=== PATIENT | female | born 1990 | race Caucasian/White ===

== ENCOUNTER 2024-10-11 02:45 | Observation (INO) | payer OTHER ==
--- OUTSIDE RECORDS SUMMARY | 2024-10-11 02:50 | XMS REPORT | Continuity of Care Document ---
Author Name Unknown Address [address] [facility] [address] thconnect Address [address] [facility] 1 [address] [place] [address] Care Team Providers Care Facilities Assistant Name Role Phone PCP, PATIENT DOES NOT HAVE A Primary Care Physic ray Unavailable LAYNE TENA Attending Clinician LAYNE Abbott Attending Clinician Ganesh Almanzar Attending Clinician Unavailab SUMEET [place] Attending Clinician UnavailSUMEET Noonan Attending Clinician Unavailab Gastelum, [facility] Main Attending Clinician Unavailabl e Doctor Unassigned, [place] Attending Clinician U navailable Fontanilla III, REGIONAL PLANNER, R Attending Clinician [phone] Isa OCHOA, Edgardo Freitas Attending Clinician [phone] Lab, Ang - Db Attending Clinician Unavailable INDER FELIZ Attending Clinician Unav ailjuan Ultrasound, Beau-Mfm Attending Clinician Unavailzena Cam MD, Inder Attending Clinician + MAT LOMAX Attending Clinician Unavailable Sharon Falk Attending Clinician Unavailable LAYNE TENA Admitting Clinician Ganesh Almanzar Admitting Clinician UnavailMAT Benjamin Admitting Clinician Unavailable Allegra Cazares Admitting Clinician Unavailable Sharon Falk Admitting Clinician Unavailable Payers Payer Name Policy Type Policy Number Effective Date Expirati on Date Source [facility] [id number] 2023 00:00:00 [id number] 1958 00:00:00 Problems Condition Name Condition Details Condition Category Status Onset Date Resolution Date Last Treatment Date Treating Clinician Comments Source Sterilizat ion Sterilizat ion Disease Active 2022-08 2-05 00:00: 00 [facility] Obesity (BMI 30-39.9) Obesity (BMI 30-39.9) Disease Active 2022-08 0-26 00:00: 00 [facility] 39 weeks gestation of 39 weeks gestation of Disease Active 2022-08 0-26 00:00: 00 [facility] Encounter for elective induction of labor Encounter for elective induction of labor Disease Active 8-11 00:00: 00 [facility] High-risk in third trimester High-risk in third trimester Disease Active 8-11 00:00: 00 [facility] Allergies, Adverse Reactions, Alerts Allergy Name Allergy Type Status Severity Reaction(s) Onset Date Inactive Date Treating Clinician Comments Source No Known Allergie s DA Active U 2020-0818 00:00: 00 [facility] No Known Allergie s DA Active U 08-19 00:00: 00 [facility] No Known Allergie s DA Active U 08-19 00:00: 00 [facility] No Known Allergie s DA Active U 16 00:00: 00 [facility] No Known Allergie s DA Active U 0 16 00:00: 00 [facility] NO KNOWN ALLERGIE S Drug Class Active [facility] Social History Social Habit Start Date Stop Date Quantity Comments Source ASSERTION 2022-09-21 00:00:00 [facility] History of tobacco use Cigarette Smoker [facility] History of Social function 2023-09-04 00:00:00 2023-09-04 00:00:00 [facility] Alcohol intake 2023-08-30 00:00:00 2023-08-30 00:00:00 Ex-drinker (finding) [facility] Cigarettes smoked current (pack per day) - Reported 2023-01-27 00:00:00 2023-01-27 00:00:00 [facility] Cigarette pack-years 2023-01-27 00:00:00 2023-01-27 00:00:00 [facility] Tobacco use and exposure 2023-01-27 00:00:00 2023-01-27 00:00:00 Smokeless tobacco non-user [facility] Sex Assigned At 1990 00:00:00 1990 00:00:00 [facility] Smoking Status Start Date Stop Date Source Ex-smoker 2023-01-27 00:00:00 2023-01-27 00:00:00 [facility] Medications Ordered Medication Name Filled Medication Name Start Date Stop Date Current Medication? Ordering Clinician Indication Dosage Frequency Signature (SIG) Comments Components Source lactated ringers IV infusion 1,000 mL 09-04 14:30: 00 Yes 1000mL at 100 mL/hr, 1,000 mL, IV Infusion, CONTINUOUS , Starting on Mon09/04/23 at 0830, Until Discontinu ed, Routine, PACU [facility] HYDROcodone -acetaminop hen (NORCO 5) 5-325 mg tablet 1 tablet 09-04 14:30: 00 09-04 14:34 :00 No 1{tbl} 1 tablet, Oral, ONCE, 1 dose, On Mon09/04/23 at 0830, Routine, PACU [facility] ibuprofen (IBU) tablet 800 mg 09-04 14:21: 15 Yes 800mg 800 mg, Oral, PRN, 1 dose, Starting on Mon09/04/23 at 0821, Until Discontinu ed, Routine, Pain (scale 1-3), DSU Recovery [facility] HYDROcodone -acetaminop hen (NORCO) 10-325 mg tablet 1 tablet 09-04 14:21: 15 Yes 1{tbl} 1 tablet, Oral, PRN, 1 dose, Starting on Mon09/04/23 at 0821, Until Discontinu ed, Routine, Pain (scale 7-10), DSU Recovery [facility] HYDROcodone -acetaminop hen (NORCO 5) 5-325 mg tablet 1 tablet 09-04 14:21: 15 Yes 1{tbl} 1 tablet, Oral, PRN, 1 dose, Starting on Mon09/04/23 at 0821, Until Discontinu ed, Routine, Pain (scale 4-6), DSU Recovery [facility] HYDROmorphO ne (DILAUDID) injection 0.2 mg 09-04 14:21: 01 Yes .2mg 0.2 mg, Slow IV Push, Q5MIN PRN, 10 doses, Starting on Mon09/04/23 at 0821, Until Discontinu ed, Routine, Pain (scale 7-10), PACU
Us e approved by (Faculty): PACU USE -ANESTHESI A SERVICE-HY DROMORPHON E INJECTIONS [facility] FENTanyl PF (SUBLIMAZE (PF)) injection 25 mcg 09-04 14:21: 01 Yes 25ug 25 mcg, Slow IV Push, Q5MIN PRN, 4 doses, Starting on Mon09/04/23 at 0821, Until Discontinu ed, Routine, Pain (scale 4-6), PACU [facility] ondansetron (ZOFRAN (PF)) injection 4 mg 09-04 14:21: 01 Yes 4mg 4 mg, Slow IV Push, PRN, 1 dose, Starting on Mon09/04/23 at 0821, Until Discontinu ed, Routine, Nausea and Vomiting (N/V), PACU [facility] water for irrigation irrigation solution 09-04 13:54: 00 09-04 14:22 :37 No PRN, Starting on Mon09/04/23 at 0754, Until Mon09/04/23 at 0822, Routine, Intra-op [facility] bupivacaine (preserv free) 0.5% (SENSORCAIN E MPF) injection 09-04 13:54: 00 09-04 14:22 :37 No PRN, Starting on Mon09/04/23 at 0754, Until Mon09/04/23 at 0822, Routine, Intra-op [facility] lactated ringers IV infusion 1,000 mL 09-04 12:45: 00 09-04 12:53 :00 No 1000mL at 42 mL/hr, 1,000 mL, IV Infusion, ONCE, 1 dose, On Mon09/04/23 at 0645, Routine, DSU Pre-op [facility] HYDROcodone -acetaminop hen 5-325 mg tablet 09-04 00:00: 00 09-12 05:59 :00 No [id number] 1{tbl} Take 1 tablet by mouth every 6 (six) hours as needed for Pain (scale 4-6) or Pain (scale 7-10) for up to 7 days. Indication s: acute pain [facility] vitamin w/FA tablet 1 tablet 2022-08 14:00: 00 Yes 1{tbl} 1 tablet, Oral, DAILY, First dose on Mon06/09/23 at 0900, Until Discontinu ed, Routine [facility] PNV no.95/felipe us fum/folic ac ( ORAL) 2022-08 07:50: 51 06-09 00:00 :00 No Take by mouth. [facility] docusate 100 mg capsule 2022-08 00:00: 00 09-04 00:00 :00 No [id number] 200mg Take 2 capsules by mouth once daily as needed for Constipati on. [facility] ferrous sulfate 325 mg (65 mg iron) tablet 2022-08 00:00: 00 09-04 00:00 :00 No [id number] 325mg Take 1 tablet by mouth in the morning and 1 tablet in the evening. [facility] vitamin w/FA tablet 2022-08 00:00: 00 09-04 00:00 :00 No [id number] 1{tbl} Take 1 tablet by mouth in the morning. [facility] ibuprofen 600 mg tablet 2022-08 00:00: 00 09-04 00:00 :00 No [id number] 600mg Take 1 tablet by mouth every 6 (six) hours as needed (Pain). Take with food or milk. [facility] rho(D) immune globulin (RHOGAM) syringe 300 mcg 2022-08 20:25: 03 Yes 300ug 300 mcg, Intramuscu lar, ONCE, For 1 dose, Conditiona l, Routine [facility] HYDROcodone -acetaminop hen (NORCO 5) 5-325 mg tablet 1 tablet 2022-08 20:23: 49 Yes 1{tbl} 1 tablet, Oral, Q6HPRN, Starting on Arianna 06/08/23 at 1523, Until Discontinu ed, Routine, Pain (scale 7-10) [facility] ibuprofen (IBU) tablet 600 mg 2022-08 20:23: 49 Yes 600mg 600 mg, Oral, Q6HPRN, Starting on Arianna 06/08/23 at 1523, Until Discontinu ed, Routine, Pain (scale 4-6) [facility] acetaminoph en (TYLENOL) tablet 650 mg 2022-08 20:23: 49 Yes 650mg 650 mg, Oral, Q6HPRN, Starting on Arianna 06/08/23 at 1523, Until Discontinu ed, Routine, Pain (scale 1-3) [facility] diphenhydrA MINE (BENADRYL) tablet 25 mg 2022-08 20:23: 49 Yes 25mg 25 mg, Oral, Q6HPRN, Starting on Arianna 06/08/23 at 1523, Until Discontinu ed, Routine, Sleep, Itching [facility] ondansetron (ZOFRAN (PF)) injection 4 mg 2022-08 20:23: 48 Yes 4mg 4 mg, Slow IV Push, Q8HPRN, Starting on Arianna 06/08/23 at 1523, Until Discontinu ed, Routine, Nausea and Vomiting (N/V) [facility] simethicone (GAS RELIEF (SIMETHICON E)) chewable tablet 160 mg 2022-08 20:23: 48 Yes 160mg 160 mg, Oral, PC+HSPRN, Starting on Mon06/08/23 at 1523, Until Discontinu ed, Routine, Gas [facility] docusate (COLACE) capsule 200 mg 2022-08 20:23: 48 Yes 200mg 200 mg, Oral, QDAILYPRN, Starting on Mon06/08/23 at 1523, Until Discontinu ed, Routine, Constipati on [facility] magnesium hydroxide (MILK OF MAGNESIA) 400 mg/5 mL suspension 30 mL 2022-08 20:23: 48 Yes 30mL 30 mL, Oral, QDAILYPRN, Starting on Arianna 06/08/23 at 1523, Until Discontinu ed, Routine, Constipati on [facility] oxytocin (PITOCIN) 30 units in NS 500 mL IV infusion 2022-08 20:23: 48 Yes 600mL/h 600 mL/hr, IV Infusion, PRN, For post delivery uterine atony., Starting on Mon06/08/[address] at 600 mL/hr for 1 hr then 150 mL/hr for 1 hr.
[facility] oxytocin (PITOCIN) 30 units in NS 500 mL IV infusion 2022-08 20:23: 48 Yes 300mL/h 300 mL/hr, IV Infusion, SEE-INSTRU CTIONS, Starting on Mon06/08/[address] at 300 mL/hr for 1 hr then 150 mL/hr for 1 hr. For post delivery uterotonic .
[facility] benzocaine- menthol (DERMOPLAST ) 20-0.5 % topical spray 2022-08 20:23: 48 Yes Topical, PRN, Starting on Arianna 06/08/23 at 1523, Until Discontinu ed, Routine, Perineum discomfort [facility] PIB fentaNYL-ro pivacaine 2 mcg/mL-0.1 % (PF) in NS 200 mL epidural infusion RTU 2022-08 17:05: 00 06-08 20:44 :47 No Epidural, ONCE INTRA PROCEDURE, Starting on Arianna 06/08/23 at 1205, Until Discontinu ed, Routine, [facility] (XYLOCAINE W/EPINEPHRI NE) 2 %-1:200,000 injection 2022-08 17:04: 00 06-08 20:44 :47 No Epidural, ONCE INTRA PROCEDURE, Starting on Mon06/08/23 at 1204, Until Discontinu ed, Routine, Intra-op Univers it[facility] lidocaine 1% (XYLOCAINE) 100 mg/10 mL (1 %) injection 2022-08 17:00: 00 06-08 20:44 :47 No Infiltrati on, ONCE INTRA PROCEDURE, Starting on Mon06/08/23 at 1200, Until Discontinu ed, Routine, Intra-op [facility] miSOPROStoL (CYTOTEC) tablet 200 mcg 2022-08 15:31: 42 Yes 200ug 200 mcg, Rectal, PRN, 5 doses, Starting on Arianna 06/08/23 at 1031, Until Discontinu ed, Routine, For PPH [facility] carboprost (HEMABATE) injection 250 mcg 2022-08 15:31: 42 Yes 250ug 250 mcg, Intramuscu lar, Q2HPRN, 8 doses, Starting on Arianna 06/08/23 at 1031, Until Discontinu ed, Routine, [facility] methylergon ovine (METHERGINE ) injection 0.2 mg 2022-08 15:31: 42 Yes .2mg 0.2 mg, Intramuscu lar, Q4HPRN, 1 dose, Starting on Arianna 06/08/23 at 1031, Until Discontinu ed, Routine, PPH [facility] lidocaine 1% (XYLOCAINE) 10 mg/mL (1 %) injection 50 mL 2022-08 15:31: 42 Yes 50mL 50 mL, Infiltrati on, PRN - SEE INSTRUCTIO NS, Starting on Mon06/08/23 at 1031, Until Discontinu ed, Routine, Local anesthesia , For laceration repair only as a local anesthetic as indicated. [facility] lidocaine 1% (PF) (XYLOCAINE) injection 0.3 mL 2022-08 15:31: 42 Yes .3mL 0.3 mL, Infiltrati on, PRN - SEE INSTRUCTIO NS, Starting on Arianna 06/08/23 at 1031, Until Discontinu ed, Routine, Local anesthesia , For IV line placement only as a local anesthetic . [facility] lactated ringers IV infusion 500 mL 2022-08 15:31: 42 Yes 500mL at 999 mL/hr, 500 mL, IV Infusion, PRN - SEE INSTRUCTIO NS, Starting on Arianna 06/08/23 at 1031, Until Discontinu ed, Routine [facility] D5W-LR IV infusion 1,000 mL 2022-08 15:31: 42 Yes 1000mL at 1-125 mL/hr, IV Infusion, TITRATE, Starting on Arianna 06/08/23 at 1031, Until Discontinu ed, Routine [facility] sodium citrate-cit peg acid (BICITRA) 500-334 mg/5 mL solution 30 mL 2022-08 15:31: 42 06-08 16:52 :00 No 30mL 30 mL, Oral, PRE-PROCED URE ONCE, 1 dose, Starting on Arianna 06/08/23 at 1031, Until Discontinu ed, Routine, Surgery/Pr ocedure [facility] PNV no.95/felipe us fum/folic ac ( ORAL) 2022-08 10:13: 33 Yes Take by mouth. [facility] PNV no.95/felipe us fum/folic ac ( ORAL) 2022-08 0- 05:55: 41 Yes Take by mouth. [facility] azithromyci n 500 mg tablet 04-05 00:00: 00 05-25 00:00 :00 No [id number] 1000mg Take 2 tablets by mouth in the morning. [facility] PNV no.95/felipe us fum/folic ac ( ORAL) 03-03 11:13: 39 Yes Take by mouth. [facility] docusate (COLACE) 100 mg capsule 616 00:00: 00 06-09 00:00 :00 No [id number] 100mg Take 1 capsule by mouth in the morning and 1 capsule in the evening. [facility] Immunizations Ordered Immunization Name Filled Immunization Name Date Status Comments Source TDAP 2023-03-24 00:00:00 Completed [facility] TDAP 2023-03-24 00:00:00 Completed [facility] TDAP 2023-03-24 00:00:00 Completed [facility] TDAP 2023-03-24 00:00:00 Completed [facility] TDAP Unknown Completed [facility] TDAP Unknown Completed [facility] Influenza Virus Vaccine Quad IM, Preserv and ABX Free 6 MO-64 YRS (FLUCELVAX) Unknown Completed [facility] TDAP Unknown Completed [facility] Influenza Virus Vaccine Quad IM, Preserv and ABX Free 6 MO-64 YRS (FLUCELVAX) Unknown Completed [facility] TDAP Unknown Completed [facility] Influenza Virus Vaccine Quad IM, Preserv and ABX Free 6 MO-64 YRS (FLUCELVAX) Unknown Completed [facility] TDAP Unknown Completed [facility] Influenza Virus Vaccine Quad IM, Preserv and ABX Free 6 MO-64 YRS (FLUCELVAX) Unknown Completed [facility] TDAP Unknown Completed [facility] Influenza Virus Vaccine Quad IM, Preserv and ABX Free 6 MO-64 YRS (FLUCELVAX) Unknown Completed [facility] TDAP Unknown Completed [facility] Influenza Virus Vaccine Quad IM, Preserv and ABX Free 6 MO-64 YRS (FLUCELVAX) Unknown Completed [facility] TDAP Unknown Completed [facility] Influenza Virus Vaccine Quad IM, Preserv and ABX Free 6 MO-64 YRS (FLUCELVAX) Unknown Completed [facility] TDAP Unknown Completed [facility] Influenza Virus Vaccine Quad IM, Preserv and ABX Free 6 MO-64 YRS (FLUCELVAX) Unknown Completed [facility] TDAP Unknown Completed [facility] Influenza Virus Vaccine Quad IM, Preserv and ABX Free 6 MO-64 YRS (FLUCELVAX) Unknown Completed [facility] TDAP Unknown Completed [facility] Influenza Virus Vaccine Quad IM, Preserv and ABX Free 6 MO-64 YRS (FLUCELVAX) Unknown Completed [facility] TDAP Unknown Completed [facility] Influenza Virus Vaccine Quad IM, Preserv and ABX Free 6 MO-64 YRS (FLUCELVAX) Unknown Completed [facility] TDAP Unknown Completed [facility] Influenza Virus Vaccine Quad IM, Preserv and ABX Free 6 MO-64 YRS (FLUCELVAX) Unknown Completed [facility] TDAP Unknown Completed [facility] Influenza Virus Vaccine Quad IM, Preserv and ABX Free 6 MO-64 YRS (FLUCELVAX) Unknown Completed [facility] TDAP Unknown Completed [facility] Influenza Virus Vaccine Quad IM, Preserv and ABX Free 6 MO-64 YRS (FLUCELVAX) Unknown Completed [facility] TDAP Unknown Completed [facility] Influenza Virus Vaccine Quad IM, Preserv and ABX Free 6 MO-64 YRS (FLUCELVAX) Unknown Completed [facility] TDAP Unknown Completed [facility] Influenza Virus Vaccine Quad IM, Preserv and ABX Free 6 MO-64 YRS (FLUCELVAX) Unknown Completed [facility] TDAP Unknown Completed [facility] Influenza Virus Vaccine Quad IM, Preserv and ABX Free 6 MO-64 YRS (FLUCELVAX) Unknown Completed [facility] TDAP Unknown Completed [facility] Influenza Virus Vaccine Quad IM, Preserv and ABX Free 6 MO-64 YRS (FLUCELVAX) Unknown Completed [facility] Vital Signs Vital Name Observation Time Observation Value Comments S ource Systolic blood pressure 2023-09-04 14:55:00 119 mm[Hg] [facility] Diastolic blood pressure 2023-09-04 14:55:00 69 mm[Hg] [facility] Heart rate 2023-09-04 14:55:00 70 /min [facility] Respiratory rate 2023-09-04 14:55:00 12 /min [facility] Oxygen saturation in Arterial blood by Pulse oximetry 2023-09-04 14:55:00 100 /min [facility] Body temperature 2023-09-04 14:26:00 36.17 Apple [facility] Body height 2023-08-30 16:00:00 175.3 cm [facility] Body weight 2023-08-30 16:00:00 94.802 kg [facility] BMI 2023-08-30 16:00:00 30.86 kg/m2 [facility] Systolic blood pressure 2023-09-04 14:50:00 116 mm[Hg] [facility] Diastolic blood pressure 2023-09-04 14:50:00 71 mm[Hg] [facility] Heart rate 2023-09-04 14:50:00 70 /min [facility] Respiratory rate 2023-09-04 14:50:00 17 /min [facility] Oxygen saturation in Arterial blood by Pulse oximetry 2023-09-04 14:50:00 98 /min [facility] Body temperature 2023-09-04 14:26:00 36.17 Apple [facility] Body height 2023-08-30 16:00:00 175.3 cm Univ [facility] Body weight 2023-08-30 16:00:00 94.802 kg [facility] BMI 2023-08-30 16:00:00 30.86 kg/m2 [facility] Systolic blood pressure 2023-08-29 21:48:00 129 mm[Hg] [facility] Diastolic blood pressure 2023-08-29 21:48:00 81 mm[Hg] [facility] Heart rate 2023-08-29 21:48:00 83 /min [facility] Body temperature 2023-08-29 21:48:00 36.72 Apple [facility] Respiratory rate 2023-08-29 21:48:00 16 /min [facility] Body height 2023-08-29 21:48:00 175.3 cm Univ [facility] Body weight 2023-08-29 21:48:00 94.847 kg [facility] BMI 2023-08-29 21:48:00 30.88 kg/m2 [facility] Systolic blood pressure 2023-07-18 18:47:00 114 mm[Hg] [facility] Diastolic blood pressure 2023-07-18 18:47:00 64 mm[Hg] [facility] Heart rate 2023-07-18 18:47:00 88 /min [facility] Body temperature 2023-07-18 18:47:00 36.72 Apple [facility] Respiratory rate 2023-07-18 18:47:00 16 /min [facility] Body height 2023-07-18 18:47:00 175.3 cm [facility] Body weight 2023-07-18 18:47:00 97.569 kg [facility] BMI 2023-07-18 18:47:00 31.76 kg/m2 [facility] Oxygen saturation in Arterial blood by Pulse oximetry 2023-07-18 18:47:00 95 /min [facility] Heart rate 2023-06-09 18:02:00 85 /min [facility] Body temperature 2023-06-09 18:02:00 36.94 Apple [facility] Systolic blood pressure 2023-06-09 12:00:00 129 mm[Hg] [facility] Diastolic blood pressure 2023-06-09 12:00:00 71 mm[Hg] [facility] Respiratory rate 2023-06-09 12:00:00 18 /min [facility] Oxygen saturation in Arterial blood by Pulse oximetry 2023-06-09 12:00:00 99 /min [facility] Body height 2023-06-08 15:35:00 175.3 cm [facility] Body weight 2023-06-08 15:35:00 102.059 kg [facility] BMI 2023-06-08 15:35:00 33.23 kg/m2 [facility] Systolic blood pressure 2023-06-01 17:57:00 116 mm[Hg] [facility] Diastolic blood pressure 2023-06-01 17:57:00 70 mm[Hg] [facility] Heart rate 2023-06-01 17:57:00 82 /min [facility] Body temperature 2023-06-01 17:57:00 36.67 Apple [facility] Respiratory rate 2023-06-01 17:57:00 16 /min [facility] Body height 2023-06-01 17:57:00 175.3 cm [facility] Body weight 2023-06-01 17:57:00 102.422 kg [facility] BMI 2023-06-01 17:57:00 33.34 kg/m2 [facility] Oxygen saturation in Arterial blood by Pulse oximetry 2023-06-01 17:57:00 99 /min [facility] Systolic blood pressure 2023-05-27 06:30:00 112 mm[Hg] [facility] Diastolic blood pressure 2023-05-27 06:30:00 59 mm[Hg] [facility] Heart rate 2023-05-27 06:30:00 80 /min [facility] Oxygen saturation in Arterial blood by Pulse oximetry 2023-05-27 06:30:00 100 /min [facility] Body temperature 2023-05-27 04:18:00 36.33 Apple [facility] Respiratory rate 2023-05-27 04:18:00 16 /min [facility] Body weight 2023-05-27 04:18:00 102.059 kg [facility] BMI 2023-05-27 04:18:00 33.23 kg/m2 [facility] [facility] Body height 2023-05-27 03:58:00 175.3 cm [facility] Systolic blood pressure 2023-05-25 18:35:00 115 mm[Hg] [facility] Diastolic blood pressure 2023-05-25 18:35:00 75 mm[Hg] [facility] Heart rate 2023-05-25 18:35:00 87 /min [facility] Body temperature 2023-05-25 18:35:00 36.83 Apple [facility] Respiratory rate 2023-05-25 18:35:00 16 /min [facility] Body height 2023-05-25 18:35:00 175.3 cm Univ [facility] Body weight 2023-05-25 18:35:00 100.789 kg Univ [facility] BMI 2023-05-25 18:35:00 32.81 kg/m2 Univ [facility] Oxygen saturation in Arterial blood by Pulse oximetry 2023-05-25 18:35:00 97 /min [facility] Systolic blood pressure 2023-05-18 20:42:00 109 mm[Hg] [facility] Diastolic blood pressure 2023-05-18 20:42:00 69 mm[Hg] [facility] Heart rate 2023-05-18 20:42:00 83 /min [facility] Respiratory rate 2023-05-18 20:42:00 18 /min [facility] Body height 2023-05-18 20:42:00 175.3 cm [facility] Body weight 2023-05-18 20:42:00 100.699 kg Univ [facility] BMI 2023-05-18 20:42:00 32.78 kg/m2 [facility] Systolic blood pressure 2023-05-04 20:54:00 117 mm[Hg] [facility] Diastolic blood pressure 2023-05-04 20:54:00 73 mm[Hg] [facility] Heart rate 2023-05-04 20:54:00 76 /min [facility] Body temperature 2023-05-04 20:54:00 36.94 Apple [facility] Respiratory rate 2023-05-04 20:54:00 16 /min [facility] Body height 2023-05-04 20:54:00 175.3 cm Univ [facility] Body weight 2023-05-04 20:54:00 100.381 kg Univ [facility] BMI 2023-05-04 20:54:00 32.68 kg/m2 Univ [facility] Systolic blood pressure 2023-04-20 20:54:00 111 mm[Hg] [facility] Diastolic blood pressure 2023-04-20 20:54:00 70 mm[Hg] [facility] Heart rate 2023-04-20 20:54:00 86 /min [facility] Body temperature 2023-04-20 20:54:00 36.78 Apple [facility] Respiratory rate 2023-04-20 20:54:00 17 /min [facility] Body height 2023-04-20 20:54:00 175.3 cm [facility] 2023-04-20 20:54:00 99.746 kg Univ [facility] BMI 2023-04-20 20:54:00 32.47 kg/m2 [facility] Systolic blood pressure 2023-03-24 21:08:00 113 mm[Hg] [facility] Diastolic blood pressure 2023-03-24 21:08:00 72 mm[Hg] [facility] Heart rate 2023-03-24 21:08:00 92 /min [facility] Respiratory rate 2023-03-24 21:08:00 18 /min [facility] Body height 2023-03-24 21:08:00 175.3 cm Univ [facility] Body weight 2023-03-24 21:08:00 95.255 kg Univ [facility] BMI 2023-03-24 21:08:00 31.01 kg/m2 Univ [facility] Systolic blood pressure 2023-03-03 16:13:00 112 mm[Hg] [facility] Diastolic blood pressure 2023-03-03 16:13:00 72 mm[Hg] [facility] Heart rate 2023-03-03 16:13:00 82 /min [facility] Body temperature 2023-03-03 16:13:00 36.56 Apple [facility] Body height 2023-03-03 16:13:00 175.3 cm Univ [facility] Body weight 2023-03-03 16:13:00 92.488 kg Univ [facility] BMI 2023-03-03 16:13:00 30.11 kg/m2 Univ [facility] Systolic blood pressure 2023-01-27 20:14:00 117 mm[Hg] [facility] Diastolic blood pressure 2023-01-27 20:14:00 80 mm[Hg] [facility] Heart rate 2023-01-27 20:14:00 82 /min [facility] Body temperature 2023-01-27 20:14:00 36.89 Apple [facility] Respiratory rate 2023-01-27 20:14:00 16 /min [facility] Body height 2023-01-27 20:14:00 175.3 cm [facility] Body weight 2023-01-27 20:14:00 90.084 kg [facility] BMI 2023-01-27 20:14:00 29.33 kg/m2 [facility] Oxygen saturation in Arterial blood by Pulse oximetry 2023-01-27 20:14:00 98 /min [facility] Height 2022-07-18 09:03:00 175.26 CM Weight 2022-07-18 09:03:00 90.9 KG Procedures Procedure Date / Time Performed Performing Clinician Source LAPAROSCOPIC SALPINGECTOMY 2023-09-04 13:06:00 Zenaida Tenasol [facility] LAPAROSCOPIC SALPINGECTOMY 2023-09-04 13:06:00 Zenaida Tenasol [facility] DSU PRE-OP 2023-08-29 06:01:00 Doctor Unass igned, [place] [facility] INSURANCE CORRESPONDENCE 2023-08-16 06:01:00 Doc tor Unassigned, [place] [facility] CBC WITH DIFF 2023-06-09 09:24:00 Layne Tena [facility] CENTRAL NEURAXIAL BLOCK 2023-06-08 16:55:00 Leoncio Michael [facility] CBC WITH DIFF 2023-06-08 16:11:00 Layne Tena [facility] HEPATITIS B SURFACE ANTIGEN 2023-06-08 16:11:00 Zenaida Tenasol [facility] ADC OR SANJAY ONLY - RPR 2023-06-08 16:11:00 Luana Dunlap [facility] HIV 1/2 AG-AB WITH REFLEX 2023-06-08 16:11:00 Luana Dunlap [facility] HB ABO GROUPING 2023-06-08 15:45:00 Darinel [facility] RHO (D) IMMUNE GLOBULIN 2023-06-08 15:45:00 Hodan Dimas [facility] HOSPITAL ADMISSION 2023-06-08 05:01:00 Doctor Un assigned, [place] [facility] POCT URINALYSIS W/O SPECIFIC GRAVITY 2023-06-01 00:00:00 Darinel [facility] ASSIGNMENT OF BENEFITS 2023-05-27 03:49:16 Docto r Unassigned, [place] [facility] CONSENT/REFUSAL FOR DIAGNOSIS AND TREATMENT 2023-05-27 03:46:36 Doctor Unassigned, [place] [facility] POCT URINALYSIS W/O SPECIFIC GRAVITY 2023-05-25 00:00:00 Darinel [facility] FLU VACC (), 6 MO-64 YRS, .5ML, IM, QUAD (FLUCELVAX) 2023-05-18 20:54:54 Darinel [facility] DSU PRE-OP 2023-05-18 05:01:00 Doctor Unass igned, [place] [facility] POCT URINALYSIS W/O SPECIFIC GRAVITY 2023-05-18 00:00:00 Darinel [facility] POCT URINALYSIS W/O SPECIFIC GRAVITY 2023-05-04 00:00:00 Darinel [facility] POCT URINALYSIS W/O SPECIFIC GRAVITY 2023-04-20 00:00:00 Darinel [facility] TDAP VACCINE, >11 YRS, IM 2023-03-24 21:25:16 Luana Dunlap [facility] POCT URINALYSIS W/O SPECIFIC GRAVITY 2023-03-24 00:00:00 Layne Tena [facility] SECOND AND THIRD TRIMESTER ULTRASOUND 2023-03-21 20:46:00 Layne Tena [facility] EXTERNAL PROVIDER RECORDS 2023-03-17 05:01:00 Do ctor Unassigned, [place] [facility] EXTERNAL PROVIDER RECORDS 2023-03-09 05:01:00 Do ctor Unassigned, [place] [facility] POCT URINALYSIS W/O SPECIFIC GRAVITY 2023-03-03 00:00:00 Layne Tena [facility] POCT URINALYSIS W/O SPECIFIC GRAVITY 2023-01-27 00:00:00 Zenaida Tenasol [facility] [id number] 2021-07-01 00:00:00 [facility] [id number] 2021-07-01 00:00:00 [facility] [id number] 2021-07-01 00:00:00 [facility] [id number] 2020-08-19 00:00:00 [facility] [id number] 2020-08-19 00:00:00 [facility] [id number] 2020-08-19 00:00:00 [facility] Encounters Start Date/Time End Date/Time Encounter Type Admission Type Attending Clinicians Care Facility Care Department Encounter ID Source 2023-06-07 16:56:20 Outpatient P IVAN-CASSANDRA S, LAYNE IVAN-CASSANDRA S, LAYNE [facility] JUAN [id number] [facility] 2020-08-19 15:28:00 Inpatient [facility] [id number] [facility] 2023-09-14 11:00:00 2023-09-14 11:00:00 Outpatient R IVAN-CASSANDRA S, LAYNE IVAN-CASSANDRA S, LAYNE [facility] [id number] [facility] 2023-09-04 06:19:00 2023-09-04 09:15:00 Outpatient R IVAN-CASSANDRA S, LAYNE IVAN-CASSANDRA S, LAYNE [facility] COMMERCIAL [employer] OFFICER [id number] [facility] 2023-09-04 06:19:00 2023-09-04 09:15:00 Hospital Encounter Ivan-Cassandra s, Layne [facility] 1.2.840.114 350.1.13.10 4.2.7.2.686 [id number] [facility] 2023-09-04 07:15:00 2023-09-04 08:52:00 [facility] 1.2840.114 350.1.13.10 4.2.7.2.686 [id number] [facility] 2023-09-02 09:45:00 2023-09-02 10:00:00 Personnel Associate Visit Pob, Adc Lab Main Ivan-Cassandra s, Layne [facility] PROFESSIO [facility] BU[facility] 1.2.840.114 350.1.13.10 4.2.7.2.686 [id number] [facility] 2023-09-02 09:45:00 2023-09-02 09:45:00 Outpatient R IVAN-CASSANDRA S, LAYNE IVAN-CASSANDRA S, LAYNE [facility] [id number] [facility] 2023-08-29 16:00:00 2023-08-29 16:00:00 Office Visit Ivan-Cassandra s Layne [facility] 1.284.114 350.1.13.10 4.2.7.2.686 [id number] [facility] 2023-08-29 16:00:00 2023-08-29 15:56:36 Outpatient R IVAN-CASSANDRA S, LAYNE IVAN-CASSANDRA S, LAYNE [facility] [id number] [facility] 2023-08-29 00:00:00 2023-08-29 00:00:00 Orders Only Doctor Unassigned, [place] [facility] 1.2840.114 350.1.13.10 4.2.7.2.686 [id number] [facility] 2023-08-16 00:00:00 2023-08-16 00:00:00 Orders Only Doctor Unassigned, [place] [facility] 1.2840.114 350.1.13.10 4.2.7.2.686 [id number] [facility] 2023-07-18 13:15:00 2023-07-18 13:15:00 Routine Visit Moncho-Cassandra Zenaida dowellsol [facility] 1.840.114 350.1.13.10 4.2.7.2.686 [id number] [facility] 2023-07-18 13:15:00 2023-07-18 13:03:50 Outpatient R IVAN-CASSANDRA S, LAYNE IVAN-CASSANDRA S, LAYNE [facility] [id number] [facility] 2023-06-29 13:15:00 2023-06-29 13:15:00 Outpatient R IVAN-CASSANDRA S, LAYNE IVAN-CASSANDRA S, LAYNE [facility] [id number] [facility] 2023-06-15 00:00:00 2023-06-15 00:00:00 Patient Secure Msg Doctor Unassigned, [place] [facility] 1.284.114 350.1.13.10 4.2.7.2.686 [id number] [facility] 2023-06-08 10:13:00 2023-06-09 16:10:00 Inpatient X IVAN-CASSANDRA S, LAYNE IVAN-CASSANDRA S, LAYNE [facility] JUAN [id number] [facility] 2023-06-08 10:13:00 2023-06-09 16:10:00 Hospital Encounter Helene dowellZenaidaLayne [facility] 1.2.840.114 350.1.13.10 4.2.7.2.686 [id number] [facility] 2023-06-08 11:55:00 2023-06-08 15:44:00 Anesthesia Event Leoncio Michael, Edgardo A [facility] 1.2.840.114 350.1.13.10 4.2.7.2.686 [id number] [facility] 2023-06-08 00:00:00 2023-06-08 00:00:00 Orders Only Doctor Unassigned, [place] [facility] 1.2.840.114 350.1.13.10 4.2.7.2.686 [id number] [facility] 2023-06-01 13:15:00 2023-06-01 13:15:05 Outpatient R HELENE Dowell, LAYNEMARIS DELACRUZ S LAYNE [facility] [id number] [facility] 2023-06-01 13:15:00 2023-06-01 13:15:05 Routine Visit Layne Bragg [facility] 1.2.840.114 350.1.13.10 4.2.7.2.686 [id number] [facility] 2023-05-26 23:00:00 2023-05-27 02:00:00 Outpatient X HELENE Dowell, LAYNE DELACRUZ S LAYNE [facility] JUAN [id number] [facility] 2023-05-26 23:00:00 2023-05-27 02:00:00 Emergency Mocnho-Cassandra sZenaidaLayne [facility] 1.2.840.114 350.1.13.10 4.2.7.2.686 [id number] [facility] 2023-05-26 00:00:00 2023-05-26 00:00:00 Orders Only Doctor Unassigned, [place] [facility] 1.2.840.114 350.1.13.10 4.2.7.2.686 [id number] [facility] 2023-05-25 16:15:00 2023-05-25 16:30:00 Routine Visit Ivan-Cassandra s, Layne [facility] 1.2840.114 350.1.13.10 4.2.7.2.686 [id number] [facility] 2023-05-25 16:15:00 2023-05-25 16:15:00 Outpatient R IVAN-CASSANDRA S, LAYNE IVAN-CASSANDRA S, LAYNE [facility] [id number] [facility] 2023-05-24 14:00:00 2023-05-24 14:00:00 Personnel Associate Visit Lab, Beau Gibson Ivan-Cassandra s, Layne [facility]ARYAN [facility] MED[facility] OFFICE BUILDING 1.2.840.114 350.1.13.10 4.2.7.2.686 [id number] [facility] 2023-05-24 14:00:00 2023-05-24 13:55:33 Outpatient R IVAN-CASSANDRA S, LAYNE IVAN-CASSANDRA S, LAYNE [facility] [id number] [facility] 2023-05-18 15:45:00 2023-05-18 16:04:31 Outpatient R IVAN-CASSANDRA S, LAYNE IVAN-CASSANDRA S, LAYNE [facility] [id number] [facility] 2023-05-18 15:45:00 2023-05-18 16:04:31 Routine Visit Ivan-Cassandra sZenaidaLayne [facility] 1.2.840.114 350.1.13.10 4.2.7.2.686 [id number] [facility] 2023-05-18 00:00:00 2023-05-18 00:00:00 Orders Only Doctor Unassigned, [place] [facility] 1.2.840.114 350.1.13.10 4.2.7.2.686 [id number] [facility] 2023-05-04 16:00:00 2023-05-04 16:05:36 Outpatient R IVAN-CASSANDRA S, LAYNE IVAN-CASSANDRA S, LAYNE [facility] [id number] [facility] 2023-05-04 16:00:00 2023-05-04 16:05:36 Routine Visit Ivan-Cassandra s, Layne [facility] 1.2.840.114 350.1.13.10 4.2.7.2.686 [id number] [facility] 2023-04-20 16:00:00 2023-04-20 16:05:31 Outpatient R IVAN-CASSANDRA S, LAYNE IVAN-CASSANDRA S, LAYNE [facility] [id number] [facility] 2023-04-20 16:00:00 2023-04-20 16:05:31 Routine Visit Ivan-Cassandra s, Layne [facility] 1.2.840.114 350.1.13.10 4.2.7.2.686 [id number] [facility] 2023-04-13 16:15:00 2023-04-13 16:15:00 Outpatient R IVAN-CASSANDRA S, LAYNE IVAN-CASSANDRA S, LAYNE [facility] [id number] [facility] 2023-04-07 16:15:00 2023-04-07 16:15:00 Outpatient R IVAN-CASSANDRA S, LAYNE IVAN-CASSANDRA S, LAYNE [facility] [id number] [facility] 2023-04-05 00:00:00 2023-04-05 00:00:00 Telephone Ivan[facility]Cassandra s [facility] 1.2.840.114 350.1.13.10 4.2.7.2.686 [id number] [facility] 2023-04-03 14:30:00 2023-04-03 15:30:18 Outpatient R IVAN-CASSANDRA S, LAYNE IVAN-CASSANDRA S, LAYNE [facility] [id number] [facility] 2023-04-03 14:30:00 2023-04-03 14:45:00 Personnel Associate Visit Lab, Ang - Db Ivan-Cassandra s, Layne [facility] 1.2.840.114 350.1.13.10 4.2.7.2.686 [id number] [facility] 2023-03-29 15:45:00 2023-03-29 15:45:00 Outpatient R [facility] [id number] [facility] 2023-03-24 16:15:00 2023-03-24 16:30:00 Routine Visit Ivan-Cassandra s, Layne [facility] 1..840.114 350.1.13.10 4.2.7.2.686 [id number] [facility] 2023-03-24 16:15:00 2023-03-24 16:28:40 Outpatient R IVAN-CASSANDRA S, LAYNE IVAN-CASSANDRA S, LAYNE [facility] [id number] [facility] 2023-03-24 11:45:00 2023-03-24 11:45:00 Outpatient R HELENE Dowell[facility] [id number] 2023-03-21 15:00:00 2023-03-21 16:07:40 Outpatient P INDER AWAD [facility] [id number] [facility] 2023-03-21 15:00:00 2023-03-21 16:07:40 Personnel Associate Visit Ultrasound, Inder Gomez [facility] VOCATIONAL TRAINING DIRECTOR [facility] 1..114 350.1.13.10 4.2.7.2.686 [id number] [facility] 2023-03-17 00:00:00 2023-03-17 00:00:00 Orders Only Doctor Unassigned, [place] [facility] 1.0.114 350.1.13.10 4.2.7.2.686 [id number] [id number] [facility] 2023-03-09 00:00:00 2023-03-09 00:00:00 Orders Only Doctor Unassigned, [place] [facility] 1..114 350.1.13.10 4.2.7.2.686 [id number] [facility] 2023-03-06 00:00:00 2023-03-06 00:00:00 Telephone Zenaida Braggsol [facility] 1..114 350.1.13.10 4.2.7.2.686 [id number] [facility] 2023-03-03 12:45:00 2023-03-03 13:35:14 Personnel Associate Visit Lab, [facility] 1..114 350.1.13.10 4.2.7.2.686 [id number] [facility] 2023-03-03 12:45:00 2023-03-03 12:45:00 Outpatient R IVAN-CASSANDRA S, LAYNE IVAN-CASSANDRA S, LAYNE [facility] [id number] [facility] 2023-03-03 11:45:00 2023-03-03 11:45:00 Routine Visit Moncho-Cassandra sZenaidaLayne [facility] 1.2.840.114 350.1.13.10 4.2.7.2.686 [id number] [facility] 2023-01-27 14:45:00 2023-01-27 15:19:26 Outpatient R IVAN-CASSANDRA S, LAYNE IVAN-CASSANDRA S, LAYNE [facility] [id number] [facility] 2023-01-27 14:45:00 2023-01-27 15:19:26 Initial Visit Ivan-Cassandra sZenaidaLayne [facility] 1.2.840.114 350.1.13.10 4.2.7.2.686 [id number] [facility] 2023-01-26 14:00:00 2023-01-26 14:00:00 Outpatient R IVAN-CASSANDRA S, LAYNE IVAN-CASSANDRA S, LAYNE [facility] [id number] [facility] 2022-07-18 09:00:00 2022-07-18 17:23:00 Emergency 1 MAT LOM[facility] [id number] [facility] [place] [facility] (RICHELLE/SHANIKA V/) 2021-07-01 05:54:00 2021-07-03 13:36:00 Inpatient EM [facility] [id number] [facility] 2020-07-13 11:30:00 2020-07-13 11:30:00 Outpatient Sharon Falk [facility] [id number] [facility] 2017-12-24 00:00:00 2017-12-25 00:00:00 Outpatient [facility] [id number] [facility] Results Test Description Test Time Test Comments Results Result Co mments Source [facility] OR SANJAY LEONA - [id number] 07:12:20* Test Item Value Reference Range Interpretation Comme nts RPR (Qualitative) (test code = 14231-9) Nonreactive Nonreactive Lab Interpretation (test cod e = 56319-4) Normal [facility] IMMUNE [id number] 22:28:58* Test Item Value Reference Range Interpretation Comme nts RHIG CANDIDATE? (test code = 5188) No- see comment Patient is not a candidate for RhIg- Patient is Rh Positive.Performed at [facility] Laboratory Services - [facility] Blood [address] [place] [id number] Free: [phone] No. [id number] [facility]AT[facility] B SURFACE [id number] 21:00:45 * Test Item Value Reference Range Interpretation Comme nts HBsAg Semi-Quantitative (eve t code = 5195-3) 0.33 Negative [facility] AG-AB WITH [id number] 18:28:26* Test Item Value Reference Range Interpretation Comme nts HIV Semi-quantitative (test code = 49878-1) 0.09 Negative NANY (test code = NANY) Non-reactive for HIV-1 antigen and HIV-1/HIV-2 antibodies. ?No laboratory evidence of HIV infection. ?Repeat in 2-4 weeks if acute HIV infection is suspected. [facility] Worth[facility] WITH [id number] 16:44:04* Test Item Value Reference Range Interpretation Comme nts WBC (test code = 6690-2) 9.73 See_Comment [Automated messa ge] The system which generated this result transmitted reference range: 4.30 - 11.10 10*3/?L. The reference range was not used to interpret this result as normal/abnormal. RBC (test code = 789-8) 3.69 See_Comment L [Automated messa ge] The system which generated this result transmitted reference range: 3.93 - 5.25 10*6/?L. The reference range was not used to interpret this result as normal/abnormal. HGB (test code = 718-7) 11.3 g/dL 11.6-15.0 L HCT (test code = 4544-3) 32.7 % 35.7-45.2 L MCV (test code = 787-2) 88.6 fL 80.6-95.5 MCH (test code = 785-6) 30.6 pg 25.9-32.8 MCHC (test code = 786-4) 34.6 g/dL 31.6-35.1 RDW-SD (test code = 96328-6) 45.3 fL 39.0-49.9 RDW-CV (test code = 788-0) 14.0 % 12.0-15.5 PLT (test code = 777-3) 241 See_Comment [Automated [employer] ge] The system which generated this result transmitted reference range: 166 - 358 10*3/?L. The reference range was not used to interpret this result as normal/abnormal. MPV (test code = 83217-7) 10.7 fL 9.5-12.9 NRBC/100 WBC (test code = 4546103240) 0.0 See_Comment [Automated [employer] ssage] The system which generated this result transmitted reference range: 0.0 - 10.0 /100 WBCs. The reference range was not used to interpret this result as normal/abnormal. NRBC x10^3 (test code = [id number]) See_Comment [Automated [employer] ge] The system which generated this result transmitted reference range: 10*3/?L. The reference range was not used to interpret this result as normal/abnormal. GRAN MAT (NEUT) % (test code = 770-8) 75.0 % IMM GRAN % (test code = [id number]) 0.80 % LYMPH % (test code = 736-9) 15.5 % MONO % (test code = 5905-5) 7.4 % EOS % (test code = 713-8) 1.2 % BASO % (test code = 706-2) 0.1 % GRAN MAT x10^3(ANC) (test code = [id number]) 7.29 10*3/uL 1.88-7.09 H IMM GRAN x10^3 (test code = [id number]) 0.08 10*3/uL 0.00-0.06 H LYMPH x10^3 (test code = 731-0) 1.51 10*3/uL 1.32-3.29 MONO x10^3 (test code = 742-7) 0.72 10*3/uL 0.33-0.92 EOS x10^3 (test code = 711-2) 0.12 10*3/uL 0.03-0.39 BASO x10^3 (test code = 704-7) 0.01-0.07 Lab Interpretation (test code = 08341-9) Abnormal [facility] URINALYSIS W/O SPECIFIC [id number] 18:01:00* Test Item Value Reference Range Interpretation Comme nts POCT PH U (test code = 3254) n/a 5-8 POCT U LEUK EST (test code = 3263) n/a Negative - Negative POCT U NIT (test code = 3262) n/a Negative - Negati ve POCT U PROT (test code = 3259) negative Negative - Negat benigno POCT U GLU (test code = 3256) negative Negative - Negati ve POCT U KETONE (test code = 3258) n/a Negative - Neg ative POCT U BLD (test code = 3257) n/a Negative - Negati ve [facility] URINALYSIS W/O SPECIFIC [id number] 18:38:00* Test Item Value Reference Range Interpretation Comme nts POCT PH U (test code = 3254) n/a 5-8 POCT U LEUK EST (test code = 3263) n/a Negative - Negative POCT U NIT (test code = 3262) n/a Negative - Negati ve POCT U PROT (test code = 3259) negative Negative - Negat benigno POCT U GLU (test code = 3256) negative Negative - Negati ve POCT U KETONE (test code = 3258) n/a Negative - Neg ative POCT U BLD (test code = 3257) n/a Negative - Negati ve [facility] URINALYSIS W/O SPECIFIC [id number] 20:52:00* Test Item Value Reference Range Interpretation Comme nts POCT PH U (test code = 3254) N/A 5-8 POCT U LEUK EST (test code = 3263) N/A Negative - Negative POCT U NIT (test code = 3262) N/A Negative - Negati ve POCT U PROT (test code = 3259) Negative Negative - Negat benigno POCT U GLU (test code = 3256) Negative Negative - Negati ve POCT U KETONE (test code = 3258) N/A Negative - Neg ative POCT U BLD (test code = 3257) N/A Negative - Negati ve [facility] URINALYSIS W/O SPECIFIC [id number] 20:53:00* Test Item Value Reference Range Interpretation Comme nts POCT PH U (test code = 3254) n/a 5-8 POCT U LEUK EST (test code = 3263) n/a Negative - Negative POCT U NIT (test code = 3262) n/a Negative - Negati ve POCT U PROT (test code = 3259) negative Negative - Negat benigno POCT U GLU (test code = 3256) negative Negative - Negati ve POCT U KETONE (test code = 3258) n/a Negative - Neg ative POCT U BLD (test code = 3257) n/a Negative - Negati ve [facility] URINALYSIS W/O SPECIFIC [id number] 20:52:00* Test Item Value Reference Range Interpretation Comme nts POCT PH U (test code = 3254) n/a 5-8 POCT U LEUK EST (test code = 3263) n/a Negative - Negative POCT U NIT (test code = 3262) n/a Negative - Negati ve POCT U PROT (test code = 3259) negative Negative - Negat benigno POCT U GLU (test code = 3256) negative Negative - Negati ve POCT U KETONE (test code = 3258) n/a Negative - Neg ative POCT U BLD (test code = 3257) n/a Negative - Negati ve [facility] URINALYSIS W/O SPECIFIC [id number] 21:18:00* Test Item Value Reference Range Interpretation Comme nts POCT PH U (test code = 3254) N/A 5-8 POCT U LEUK EST (test code = 3263) N/A Negative - Negative POCT U NIT (test code = 3262) N/A Negative - Negati ve POCT U PROT (test code = 3259) Negative Negative - Negat benigno POCT U GLU (test code = 3256) Negative Negative - Negati ve POCT U KETONE (test code = 3258) N/A Negative - Neg ative POCT U BLD (test code = 3257) N/A Negative - Negati ve [facility] URINALYSIS W/O SPECIFIC [id number] 16:20:00* Test Item Value Reference Range Interpretation Comme nts POCT PH U (test code = 3254) n/a 5-8 POCT U LEUK EST (test code = 3263) n/a Negative - Negative POCT U NIT (test code = 3262) n/a Negative - Negati ve POCT U PROT (test code = 3259) negative Negative - Negat benigno POCT U GLU (test code = 3256) negative Negative - Negati ve POCT U KETONE (test code = 3258) n/a Negative - Neg ative POCT U BLD (test code = 3257) n/a Negative - [facility] [id number] 20:13:00* Test Item Value Reference Range Interpretation Comme nts POCT PH U (test code = 3254) n/a 5-8 POCT U LEUK EST (test code = 3263) n/a Negative - Negative POCT U NIT (test code = 3262) n/a Negative - Negati ve POCT U PROT (test code = 3259) trace Negative - Negat benigno POCT U GLU (test code = 3256) positive Negative - Negati ve POCT U KETONE (test code = 3258) n/a Negative - Neg ative POCT U BLD (test code = 3257) n/a Negative - [facility]ati ve [facility]2022-07-18 14:02:00* Test Item Value Reference Range Interpretation Comme nts Acetaminophen (test code = ACET) <2 ug/ml 10-25 L STLMLDRUG SCREEN [id number] 13:39:00* Test Item Value Reference Range Interpretation Comme nts Specific [place] (test code = USPGR) 1.020 1.005-1.030 A PH (test code = UPH) 6.0 4.5-8.0 A FT (test code = AMPHET) Negative (qualifier value) FT (test code = LEBRON) Negative (qualifier value) FT (test code = BENZO) Negative (qualifier value) Cocaine (test code = RAFA) Positive FT (test code = MTD) Negative (qualifier value) FT (test code = OPIAT) Negative (qualifier value) PHENCYCLIDINE, PCP (test code = PCP) Positive The following ta ble provides an interpretive guide for the Drugs of Abuse ran on the Siem[employer] analyzer listed there in: Amphetamines < 1000 ng/ml = Negative Barbituates < 200 ng/ml = Negative Benzodiazapines < 200 ngml = Negative Cocaine < 300 ng/ml = Negative Methadone < 300 ng/ml = Negative Opiate < 300 ng/ml = Negative PCP < 25 ng/ml = Negative THC < 50 ng/ml = Negative Results equal to or greater than the above cut-off values = Presumptive Positive. Confirmation of Presumptive Positive results are available upon request. FT (test code = THC) Negative (qualifier value) STLMLPREGNANCY TEST, Urine [id number] 13:25:00* Test Item Value Reference Range Interpretation Comme nts (Urine) (test code = PREGU) Negative STLMLSALICYLATES (Aspirin)2022-07-18 10:41:00* Test Item Value Reference Range Interpretation Comme nts Salicylate (test code = SALI) 2.2 mg/dl 0.0-30.0 Salicylates Refe rence Ranges: Therapeutic 15 - 30 mg/dl Toxicity >30 mg/dl Lethal >70 mg/dl [id number] 10:40:00* Test Item Value Reference Range Interpretation Comme nts CPK (test code = CPK) 404 U/L 30-135 H STLMLALCOHOL, [id number] 10:40:00* Test Item Value Reference Range Interpretation Comme nts Alcohol % (test code = ALCPC) 0.19 % 0.00-0.00 H Ethanol % 0.00 - 0.10 Sub-clinical 0.11 - 0.20 Emotional Instability 0.21 - 0.30 Confusion 0.31 - 0.40 Stupor 0.41 - 0.50 Coma >.50 Fatal [id number] 10:23:00* Test Item Value Reference Range Interpretation Comme nts Glucose (test code = GLU) 154 mg/dl 75-110 H BUN (test code = BUN) 9.0 mg/dl 6.0-17.0 Creatinine (test code = CREA) 1.0 mg/dl 0.4-1.2 Sodium (test code = NA) 144 mmol/l 137-145 Anion Gap (test code = GAP) 8 mmol/l 5-15 Potassium (test code = K) 3.4 mmol/l 3.5-5.0 L Chloride (test code = CL) 109 mmol/l 98-107 H CO2 (test code = CO2) 27 mmol/l 22-30 Calcium (test code = CALC) 9.1 mg/dl 8.4-10.2 T Protein (test code = TP) 8.5 gm/dl 5.1-8.7 Albumin (test code = ALB) 4.9 gm/dl 3.5-4.6 H A/G Ratio (test code = AGRAT) 1.4 % 1.1-2.2 AST (SGOT) (test code = AST) 24 U/L 11-36 ALT (SGPT) (test code = ALT) 34 U/L 11-40 Alkaline Phos (test code = ALKP) 153 U/L 47-114 H Bilirubin, Total (test code = TBIL) 0.3 mg/dl 0.2-1.2 Globulin (test code = GLOBU) 3.6 gm/dl 2.3-3.5 H Calcium, Corrected (test code = CALCCORR) 8.4 mg/dl 8.4-10.2 Various formulas exist for corrected serum calcium results, each yielding different values. This corrected result was based on the formula: Corrected Calcium = SerumCalcium + [0.8 * ( 4 - SerumAlbumin)] EGFR if (test code = EGFRAA) >60 mL/min/1.73m\\ S\\2 EGFR if Non- (test code = EGFRNA) >60 mL/min/1.73m\\ S\\2 Estimated Glomerular Filtration Rate (eGFR) Reference Intervals Decision Points for 18 years and older and average body mass: >= 60 Does not exclude kidney disease. 30 - 59 Suggests moderate chronic kidney disease and indicates the need for further investigation including assessment of proteinuria and cardiovascular factors. < 30 Usually indicates a need for referral for assessment and management of chronic kidney failure. STLMLACETAMINOPHEN (Tyenol)2022-07-18 10:23:00* Test Item Value Reference Range Interpretation Comme nts Acetaminophen (test code = ACET) <2 ug/ml 10-25 L STLMLCBC WITH AUTO [id number] 10:07:00* Test Item Value Reference Range Interpretation Comme nts WBC (test code = WBC) 10.87 10\\S\\3/ul 4.80-10.80 H RBC (test code = RBC) 4.71 10\\S\\6/ul 4.20-5.40 Hemoglobin (test code = HGB) 14.1 gm/dl 12.0-14.0 H Hematocrit (test code = HCT) 42.1 % 37.0-47.0 MCV (test code = MCV) 89.4 fL 81.0-99.0 MCH (test code = MCH) 29.9 pg 27.0-31.0 MCHC (test code = MCHC) 33.5 gm/dl 33.0-37.0 RDW (test code = RDWVC) 13.6 % 11.5-14.5 Platelet (test code = PLT) 362 10\\S\\3/ul 130-400 MPV (test code = MPV) 9.5 fL 7.4-10.4 A "NOT MEASURED" RESULTS ARE DISPLAYED WHEN THE INSTRUMENT HAS A SUPPRESSED OR UNREPORTABLE RESULT. THIS WILL MOST OFTEN HAPPEN WITH THE MPV WHEN THERE IS AN ABNORMAL PLATELET DISTRIBUTION DUE TO A CRITICAL LOW VALUE OR PLATELET CLUMPING. THE RDW MAY BE SUPPRESSED IF THERE ARE MULTIPLE PEAKS PRESENT ON THE RBC HISTOGRAM. IN THIS CASE, A MANUAL REVIEW OF THE SLIDE WILL BE PERFORMED, AND RBC MORPHOLOGY WILL BE NOTED ON THE REPORT. NE% (test code = NE) 54.7 % 42.0-75.0 LY% (test code = LY) 35.6 % 13.0-42.0 MO% (test code = MO) 8.4 % 4.0-14.0 EO% (test code = EO) 0.9 % 1.0-5.0 L BA% (test code = BA) 0.2 % 0.0-3.0 IG% (test code = IG%) 0.2 % 0.0-0.4 STLSURGICAL PATH [id number] 13:45:00* Test Item Value Reference Range Interpretation Comme [facility] SPECIMENS (test code = S) RUN DATE: 07/05/21 [facility] PAGE 1 RUN TIME: 1346 Specimen Inquiry RUN USER: INTERFACE PATIENT: KIRAN ARZATE LOC: [place]EN[place]N U #: [id number] AGE/SX: 30/F ROOM: [facility] [place] RE07/01/21REG DR: Sharon Falk MD : 91 BED: 1 DIS: 07/03/21 STATUS: DIS IN TLOC: SPEC #: [id number] RECD: 07/02/21 STATUS: TIFFANI HUFFMAN #: [id number] DIONICIO: 07/01/21- SUBM DR: Sharon Falk MD ENTERED: 07/02/21 SP TYPE: SURG SPEC OTHR DR: Self Referred Gladys Watson MD, Maria T MDORDERED: LEVEL 5 CODES: [id number] - PLACENTA, NOS COPIES TO: Self Referred Gladys Watson MD [address] [facility] [address] [place] [address] Allegra Cazares MD [address] [place] [address] [address] [place] [address] Sharon Falk MD [address] [place] [address] PROCEDURES: LEVEL 5 (07/02/21) TISSUES: PLACENTA, NOS FINAL DIAGNOSIS Placenta, 39.3-week: Histologically mature brandon placenta (422 g, less than 10th percentile for gestational age), marginal cord insertion. GROSS AND MICROSCOPIC GROSS EXAMINATION: Received in formalin labeled placenta is a 422 g 15 x 15 x 2.5 cm placenta. The surface is bluegray with winding vessels on the surface. The maternal surface is intact with focal adherent hemorrhage. The marginally inserted three-vessel umbilical cord measures 27 cm in length 1.2 cm in diameter. The membranes are thin and translucent. The parenchyma is beefy red without identified lesions. Submitted (A) membranes (B) umbilical cord (C)-(E) parenchyma. CONTINUED ON NEXT PAGE RUN DATE: 07/05/21 [facility] PAGE 2 RUN TIME: 1346 Specimen Inquiry RUN USER: INTERFACE SPEC #: [id number] PATIENT: KIRAN ARZATE #[id number] (Continued) --- GROSS AND MICROSCOPIC (Continued) MICROSCOPIC EXAMINATION: Sections of the umbilical cord reveal three vessels without significant inflammation. The membranes are unremarkable. The surface of the placenta does not show a significant inflammatory infiltrate. Maturation is appropriate for gestational age. The underlying maternal decidua beneath the placenta contains a mixed inflammatory infiltrate. REVIEWED BY: PILO Signed SIGNATURE ON FILE Dawit Dunbar DO 07/05/21 1345 END OF REPORT CBC W/AUTO [id number] 06:56:00* Test Item Value Reference Range Interpretation Comme nts WHITE BLOOD CELL (test code = WBC) 8.0 x10 3/uL 4.5-11.0 N RED BLOOD CELL (test code = RBC) 3.72 x10 6/uL 3.54-5.02 N HEMOGLOBIN (test code = HGB) 11.1 g/dL 11.0-15.0 N HEMATOCRIT (test code = HCT) 33.2 % 33.0-45.0 N MEAN CELL VOLUME (test code = MCV) 89.2 fL 81.0-99.0 N MEAN CELL HGB (test code = MCH) 29.8 pg 27.0-33.0 N MEAN CELL HGB CONCETRATION (test code = MCHC) 33.4 g/dL 33.0-37.0 N RED CELL DISTRIBUTION WIDTH CV (test code = RDW) 13.6 % 11.5-14.5 N RED CELL DISTRIBUTION WIDTH SD (test code = RDW-SD) 44.2 fL 37.0-54.0 N PLATELET COUNT (test code = PLT) 215 x10 3/uL 150-400 N MEAN PLATELET VOLUME (test c ode = MPV) 11.0 fL 7.0-9.0 H NEUTROPHIL % (test code = NT%) 73.3 % 56.0-77.0 N IMMATURE GRANULOCYTE % (test code = IG%) 0.5 % 0.0-2.0 N LYMPHOCYTE % (test code = LY%) 19.4 % 14.0-32.0 N MONOCYTE % (test code = MO%) 5.1 % 4.8-9.0 N EOSINOPHIL % (test code = EO%) 1.6 % 0.3-3.7 N BASOPHIL % (test code = BA%) 0.1 % 0.0-2.0 N NUCLEATED RBC % (test code = NRBC%) 0.0 % 0-0 N NEUTROPHIL # (test code = NT#) 5.86 x10 3/uL 2.0-7.6 N IMMATURE GRANULOCYTE # (test code = IG#) 0.04 x10 3/uL 0.00-0.03 H LYMPHOCYTE # (test code = LY#) 1.55 x10 3/uL 1.0-3.8 N MONOCYTE # (test code = MO#) 0.41 x10 3/uL 0.1-0.8 N EOSINOPHIL # (test code = EO#) 0.13 x10 3/uL 0.0-0.2 N BASOPHIL # (test code = BA#) 0.01 x10 3/uL 0.0-0.2 N NUCLEATED RBC # (test code = NRBC#) 0.00 x10 3/uL 0.0-0.1 N MANUAL DIFF REQUIRED (test c ode = MDIFF) NO CORD VENOUS BLOOD [id number] 14:05:00* Test Item Value Reference Range Interpretation Comme nts CORD VENOUS PH (test code = PHCV) 7.39 7.25-7.45 N CORD VENOUS PCO2 (test code = PCO2CV) 37 mmHg 27-49 N CORD VENOUS PO2 (test code = PO2CV) 47 mmHg 17-41 H CORD VENOUS HCO3 (test code = HCO3CV) 22.8 MMOL/L 12-28 N CORD VENOUS BASE EXCESS (eve t code = BEXCV) -2.1 mmol/L -8.0-0.00 N CORD VENOUS 02 SAT (test cod e = O2SCV) 82 % RAPID PLASMA [id number] 10:35:00* Test Item Value Reference Range Interpretation Comme nts RAPID PLASMA REAGIN (test co de = RPR) NONREACTIVE NONREACTIVE AG HEPATITIS B [id number] 10:35:00* Test Item Value Reference Range Interpretation Comme nts AG HEPATITIS B SURFACE (test code = HBSAG) NON REACTIVE INDEX NonReactive AB HIV 1 10:35:00* Test Item Value Reference Range Interpretation Comme nts AB HIV 1 2 (test code = AQC60WU) Nonreactive Nonreactive COVID 19 Asymptomatic IH [id number] 07:32:00* Test Item Value Reference Range Interpretation Comme nts COVID 19 Asymptomatic IH AG (test code = COVNONPUIAG) Negative Negative A negative resul t is presumptive and should be confirmedwith an FDA authorized molecular assay, if necessary forpatient management.A positive result does not rule out co-infections withother pathogens.This test detects both viable (live) and non-viable,SARS-CoV, and SARS-CoV-2. Test performance depends on theamount of virus (antigen) in the sample.This test has not been FDA cleared or approved; the test hasbeen authorized by FDA under an Emergency Use Authorization(EUA) for use by laboratories certified under the CLIA thatmeet the requirements to perform moderate, high or waivedcomplexity tests. URINALYSIS [id number] 02:29:00* Test Item Value Reference Range Interpretation Comme nts UA COLOR (test code = COLU) YELLOW YEL/STRAW UA APPEARANCE (test code = APPU) SL CLOUDY CLEAR UA GLUCOSE DIPSTICK (test co de = DGLUU) NEGATIVE NEGATIVE UA BILIRUBIN DIPSTICK (test code = BILU) NEGATIVE NEGATIVE UA KETONE DIPSTICK (test cod e = KETU) TRACE NEGATIVE A UA SPECIFIC GRAVITY (test co de = SGU) 1.021 1.005-1.030 N UA BLOOD DIPSTICK (test code = ANDREW) NEGATIVE NEGATIVE UA PH DIPSTICK (test code = NEO) 6.0 5.0-7.0 N UA PROTEIN DIPSTICK (test co de = PROU) NEGATIVE NEGATIVE UA UROBILINIOGEN DIPSTICK (test code = URO) 2.0 mg/dL 0.2-1.0 A UA NITRITE DIPSTICK (test co de = ADILSON) NEGATIVE NEGATIVE UA LEUKOCYTE ESTERASE DIPSTI CK (test code = LEUU) NEGATIVE NEGATIVE UA RBC (test code = RBCU) 0-3 RBC/HPF 0-3 UA WBC NO REFLEX (test code = WBCUCL) 0-3 WBC/HPF 0-3 UA BACTERIA (test code = BACU) NONE SEEN /HPF NONE SEEN UA SQUAMOUS CELLS (test code = SQU) 11-25 /HPF NONE SEEN A UA MUCUS (test code = MUCU) TRACE /LPF NONE SEEN CBC W/AUTO [id number] 02:24:00* Test Item Value Reference Range Interpretation Comme nts WHITE BLOOD CELL (test code = WBC) 8.3 x10 3/uL 4.5-11.0 N RED BLOOD CELL (test code = RBC) 3.60 x10 6/uL 3.54-5.02 N HEMOGLOBIN (test code = HGB) 11.3 g/dL 11.0-15.0 N HEMATOCRIT (test code = HCT) 33.1 % 33.0-45.0 N MEAN CELL VOLUME (test code = MCV) 91.9 fL 81.0-99.0 N MEAN CELL HGB (test code = MCH) 31.4 pg 27.0-33.0 N MEAN CELL HGB CONCETRATION (test code = MCHC) 34.1 g/dL 33.0-37.0 N RED CELL DISTRIBUTION WIDTH CV (test code = RDW) 13.7 % 11.5-14.5 N RED CELL DISTRIBUTION WIDTH SD (test code = RDW-SD) 46.0 fL 37.0-54.0 N PLATELET COUNT (test code = PLT) 212 x10 3/uL 150-400 N MEAN PLATELET VOLUME (test c ode = MPV) 10.7 fL 7.0-9.0 H NEUTROPHIL % (test code = NT%) 70.4 % 56.0-77.0 N IMMATURE GRANULOCYTE % (test code = IG%) 0.5 % 0.0-2.0 N LYMPHOCYTE % (test code = LY%) 20.4 % 14.0-32.0 N MONOCYTE % (test code = MO%) 7.2 % 4.8-9.0 N EOSINOPHIL % (test code = EO%) 1.3 % 0.3-3.7 N BASOPHIL % (test code = BA%) 0.2 % 0.0-2.0 N NUCLEATED RBC % (test code = NRBC%) 0.0 % 0-0 N NEUTROPHIL # (test code = NT#) 5.87 x10 3/uL 2.0-7.6 N IMMATURE GRANULOCYTE # (test code = IG#) 0.04 x10 3/uL 0.00-0.03 H LYMPHOCYTE # (test code = LY#) 1.70 x10 3/uL 1.0-3.8 N MONOCYTE # (test code = MO#) 0.60 x10 3/uL 0.1-0.8 N EOSINOPHIL # (test code = EO#) 0.11 x10 3/uL 0.0-0.2 N BASOPHIL # (test code = BA#) 0.02 x10 3/uL 0.0-0.2 N NUCLEATED RBC # (test code = NRBC#) 0.00 x10 3/uL 0.0-0.1 N MANUAL DIFF REQUIRED (test c ode = MDIFF) NO - US BIOPHYS [id number] 00:00:00 [facility] JAMARI HURTADOName: KIRAN ARZATE : 1990 Sex: F Name: KIRAN ARZATE [facility] Jamari Hurtado : 1990 Age/S: 30 / F [address] [place] [address] Unit #: [id number] Loc: [place] [address] Phys: Gladys Watson MD Acct: [id number] Dis Date: Status:REG ER PHONE #: [phone] Exam Date: 07/01/2021 0214 FAX #: [phone] Reason: Variable, EXAMS: CPT CODE: [id number] US BIOPHYS PROF [id number] PROCEDURE INFORMATION: Exam: US Biophysical P rofile Without Non-Stress Test Exam date and time: 07/01/2021 1:54 AM Age: 30 years old Clinical indication: Other: Ctx; ; Additional info: Variable, TECHNIQUE: Imaging protocol: US biophysical profile without non-stress testing. COMPARISON: US PREG AFTER 1ST TRI 07/13/2020 11:47 AM FINDINGS: EGA: 39 weeks, 3 days. Presentation: Cephalic. heart rate: 136 bpm Placenta location: The placenta is anterior, non-previa without signs of retroplacental hemorrhage. Grade: 1 S/D ratio: 2.2 DESTINY: 7.7 cm breathing movements: 2 Gross body movements: 2 tone: 2 Amniotic fluid volume: 2 IMPRESSION: 1. Biophysical profile score of 8 out of 8. 2. Viable intrauterine gestation in cephalic presentation. heart rate is 136 bpm. at 0302 Reported and signed by: Eric Mena M.D. CC: Allegra Cazares MD;Sharon Falk MD Technologist: Nasima Rausch RDMS(AB)(OB) Trnscb Date/Time: 07/01/2021 (301) JoseyMandy Print D/T: S: 07/01/2021 (030) Probe: PAGE 1 Signed ReportCORD ARTERIAL BLOOD [id number] 14:48:00* Test Item Value Reference Range Interpretation Comme [facility] CORD BLOOD HCO3 (test code = HCO3/C) 25 mmol/L 17-27 N BASE EXCESS CORD (test code = MANE/C) -0.6 mmol/L -8.0-0.0 N O2 SATURATION (test code = O2S/C) 65 % 72-77 L CBG TEMPERATURE (test code = TEMPC) 97.8 F SURGICAL PATH [id number] 08:47:00* Test Item Value Reference Range Interpretation Comme [facility] SURGICAL PATH SPECIMENS (test code = SURG) RUN DATE: 08/24/20 [facility] *LIVE* PAGE 1 RUN TIME: 0848 Specimen Inquiry RUN USER: INTERFACE PATIENT: KIRAN ARZATE LOC: ShaguftaWS U #: [id number] AGE/SX: 29/F ROOM: [facility] [place] RE08/19/20REG DR: Sharon Falk MD : 91 BED: 1 DIS: 01/08/21 STATUS: DIS IN TLOC: SPEC #: [id number] RECD: 08/20/20 STATUS: TIFFANI REHol[place] #: [id number] DIONICIO: 08/20/[address]: Sharon Falk MD ENTERED: 08/21/20 SP TYPE: SURG SPEC OTHR DR: Ganesh Jolley MD, Maria T MDORDERED: GROSS AND MICRO CODES: [id number] - PLACENTA, NOS COPIES TO: Ganesh Jolley MD [address] [place] [address] Allegra Cazares MD [address] [place], [place] [address] [place], [place] [address] Sharon Falk MD [address] [place] [address] PROCEDURES: GROSS AND MICRO (Incomplete) TISSUES: 1. PLACENTA, NOS - Placenta, 3rd trimester FINAL DIAGNOSIS Placenta, 3rd trimester: Histologically mature brandon placenta (490 g, 25th percentile for gestational age). GROSS AND MICROSCOPIC GROSS EXAMINATION: Received in formalin labeled placenta is a 490 g 15 x 15 x 2.5 cm placenta. The surface is bluegray with tortuous vessels on the surface. Maternal surface is intact with focal adherent hemorrhage. The centrally inserted three-vessel umbilical cord measures 41 cm in length 1 cm in diameter. The membranes are thin and translucent. The parenchyma is beefy red without identified lesions. SECTION CODE: (A) Membranes (B) umbilical cord (C)-(E) placental parenchyma. MICROSCOPIC EXAMINATION: Sections of the umbilical cord reveal three CONTINUED ON NEXT PAGE RUN DATE: 08/24/20 [facility] *LIVE* PAGE 2 RUN TIME: 847 Specimen Inquiry RUN USER: INTERFACE SPEC #: [id number] PATIENT: KIRAN ARZATE #[id number] (Continued) --- GROSS AND MICROSCOPIC (Continued) vessels without significant inflammation. The membranes are unremarkable. The surface of the placenta does not show a significant inflammatory infiltrate. Maturation is appropriate for gestational age. The underlying maternal decidua beneath the placenta contains a mixed inflammatory infiltrate. POST-OP DIAGNOSIS 39.2 week intrauterine , vaginal delivery, delivered PRE-OP DIAGNOSIS 39.2 week intrauterine , vaginal delivery Signed SIGNATURE ON FILE Dawit Dunbar DO 08/24/20 0847 END OF REPORT RAPID PLASMA [id number] 11:29:00* Test Item Value Reference Range Interpretation Comme nts RAPID PLASMA REAGIN (test co de = RPR) NONREACTIVE NONREACTIVE AG HEPATITIS B [id number] 11:29:00* Test Item Value Reference Range Interpretation Comme nts AG HEPATITIS B SURFACE (test code = HBSAG) NON REACTIVE INDEX NonReactive AB HIV 1 11:29:00* Test Item Value Reference Range Interpretation Comme nts AB HIV 1 2 (test code = [id number]) NONREACTIVE INDEX NONREACTIVE CBC W/AUTO [id number] 07:48:00* Test Item Value Reference Range Interpretation Comme nts WHITE BLOOD CELL (test code = WBC) 9.7 x10 3/uL 4.5-11.0 N RED BLOOD CELL (test code = RBC) 3.70 x10 6/uL 3.54-5.02 N HEMOGLOBIN (test code = HGB) 11.3 g/dL 11.0-15.0 N HEMATOCRIT (test code = HCT) 34.2 % 33.0-45.0 N MEAN CELL VOLUME (test code = MCV) 92.4 fL 81.0-99.0 N MEAN CELL HGB (test code = MCH) 30.5 pg 27.0-33.0 N MEAN CELL HGB CONCETRATION (test code = MCHC) 33.0 g/dL 33.0-37.0 N RED CELL DISTRIBUTION WIDTH CV (test code = RDW) 13.7 % 11.5-14.5 N RED CELL DISTRIBUTION WIDTH SD (test code = RDW-SD) 46.4 fL 37.0-54.0 N PLATELET COUNT (test code = PLT) 197 x10 3/uL 150-400 N MEAN PLATELET VOLUME (test c ode = MPV) 11.6 fL 7.0-9.0 H NEUTROPHIL % (test code = NT%) 74.7 % 56.0-77.0 N IMMATURE GRANULOCYTE % (test code = IG%) 0.4 % 0.0-2.0 N LYMPHOCYTE % (test code = LY%) 18.1 % 14.0-32.0 N MONOCYTE % (test code = MO%) 5.5 % 4.8-9.0 N EOSINOPHIL % (test code = EO%) 1.1 % 0.3-3.7 N BASOPHIL % (test code = BA%) 0.2 % 0.0-2.0 N NUCLEATED RBC % (test code = NRBC%) 0.0 % 0-0 N NEUTROPHIL # (test code = NT#) 7.22 x10 3/uL 2.0-7.6 N IMMATURE GRANULOCYTE # (test code = IG#) 0.04 x10 3/uL 0.00-0.03 H LYMPHOCYTE # (test code = LY#) 1.75 x10 3/uL 1.0-3.8 N MONOCYTE # (test code = MO#) 0.53 x10 3/uL 0.1-0.8 N EOSINOPHIL # (test code = EO#) 0.11 x10 3/uL 0.0-0.2 N BASOPHIL # (test code = BA#) 0.02 x10 3/uL 0.0-0.2 N NUCLEATED RBC # (test code = NRBC#) 0.00 x10 3/uL 0.0-0.1 N MANUAL DIFF REQUIRED (test c ode = MDIFF) NO CORD VENOUS BLOOD [id number] 18:47:00* Test Item Value Reference Range Interpretation Comme nts CORD VENOUS PH (test code = PHCV) 7.36 7.25-7.45 N CORD ARTERIAL SAMPLE COULD NOT BE ATTAINED CORD VENOUS PCO2 (test code = PCO2CV) 43 mmHg 27-49 N CORD VENOUS PO2 (test code = PO2CV) 35 mmHg 17-41 N CORD VENOUS HCO3 (test code = HCO3CV) 24.8 MMOL/L 12-28 N CORD VENOUS BASE EXCESS (test code = BEXCV) -0.6 mmol/L -8.0-0.00 N CORD VENOUS 02 SAT (test code = O2SCV) 65 % CBG TEMPERATURE (test code = TEMPC) 97.8 F CORD ARTERIAL BLOOD [id number] 18:47:00* Test Item Value Reference Range Interpretation Comme nts CORD BLOOD PH (test code = PH/C) 7.18-7.38 CORD BLOOD PCO2 (test code = PCO2/C) mmHg 32-66 CORD BLOOD PO2 (test code = PO2/C) mmHg 6-30 CORD BLOOD HCO3 (test code = HCO3/C) 25 mmol/L 17-27 N BASE EXCESS CORD (test code = MANE/C) -0.6 mmol/L -8.0-0.0 N O2 SATURATION (test code = O2S/C) 65 % 72-77 L CBG TEMPERATURE (test code = TEMPC) 97.8 F [id number] 17:16:00* Test Item Value Reference Range Interpretation Comme nts GLUBED (test code = GLUBED) 61 MG/DL 70-110 L Performed by cer tified radar operator at [facility] [id number] 15:28:00* Test Item Value Reference Range Interpretation Comme nts GLUBED (test code = GLUBED) 83 MG/DL 70-110 N Performed by cer tified radar operator at [facility] AMNISURE (ROM) [id number] 13:47:00* Test Item Value Reference Range Interpretation Comme nts AMNISURE (ROM) TEST (test co de = AMNI) NEGATIVE NEGATIVE [id number] 13:25:00* Test Item Value Reference Range Interpretation Comme nts GLUBED (test code = GLUBED) 76 MG/DL 70-110 N Performed by cer tified radar operator at [facility] [id number] 13:17:00* Test Item Value Reference Range Interpretation Comme nts HGBA1C% (test code = HGBA1C%) 5.2 %A1C 4.8-6.0 N RAPID PLASMA [id number] 13:05:00* Test Item Value Reference Range Interpretation Comme nts RAPID PLASMA REAGIN (test code = RPR) NONREACTI VE AG HEPATITIS B [id number] 13:05:00* Test Item Value Reference Range Interpretation Comme nts AG HEPATITIS B SURFACE (test code = HBSAG) NON REACTIVE INDEX NonReactive AB HIV 1 13:05:00* Test Item Value Reference Range Interpretation Comme nts AB HIV 1 2 (test code = BOE32UZ) NONREACTIVE INDEX NONREACTIVE COVID 19 Asymptomatic IH [id number] 12:27:00* Test Item Value Reference Range Interpretation Comme nts COVID 19 Asymptomatic IH AG (test code = COVNONPUIAG) Negative Negative A negative resul t is presumptive and should be confirmedwith an FDA authorized molecular assay, if necessary forpatient management.A positive result does not rule out co-infections withother pathogens.This test detects both viable (live) and non-viable,SARS-CoV, and SARS-CoV-2. Test performance depends on theamount of virus (antigen) in the sample.This test has not been FDA cleared or approved; the test hasbeen authorized by FDA under an Emergency Use Authorization(EUA) for use by laboratories certified under the CLIA thatmeet the requirements to perform moderate, high or waivedcomplexity tests. COMMENTS: [facility] not [facility]AUTO [id number] 12:08:00* Test Item Value Reference Range Interpretation Comme nts WHITE BLOOD CELL (test code = WBC) 9.4 x10 3/uL 4.5-11.0 N RED BLOOD CELL (test code = RBC) 3.84 x10 6/uL 3.54-5.02 N HEMOGLOBIN (test code = HGB) 11.6 g/dL 11.0-15.0 N HEMATOCRIT (test code = HCT) 35.0 % 33.0-45.0 N MEAN CELL VOLUME (test code = MCV) 91.1 fL 81.0-99.0 N MEAN CELL HGB (test code = MCH) 30.2 pg 27.0-33.0 N MEAN CELL HGB CONCETRATION (test code = MCHC) 33.1 g/dL 33.0-37.0 N RED CELL DISTRIBUTION WIDTH CV (test code = RDW) 13.8 % 11.5-14.5 N RED CELL DISTRIBUTION WIDTH SD (test code = RDW-SD) 46.1 fL 37.0-54.0 N PLATELET COUNT (test code = PLT) 217 x10 3/uL 150-400 N MEAN PLATELET VOLUME (test c ode = MPV) 10.5 fL 7.0-9.0 H NEUTROPHIL % (test code = NT%) 72.9 % 56.0-77.0 N IMMATURE GRANULOCYTE % (test code = IG%) 0.6 % 0.0-2.0 N LYMPHOCYTE % (test code = LY%) 18.2 % 14.0-32.0 N MONOCYTE % (test code = MO%) 7.0 % 4.8-9.0 N EOSINOPHIL % (test code = EO%) 1.2 % 0.3-3.7 N BASOPHIL % (test code = BA%) 0.1 % 0.0-2.0 N NUCLEATED RBC % (test code = NRBC%) 0.0 % 0-0 N NEUTROPHIL # (test code = NT#) 6.87 x10 3/uL 2.0-7.6 N IMMATURE GRANULOCYTE # (test code = IG#) 0.06 x10 3/uL 0.00-0.03 H LYMPHOCYTE # (test code = LY#) 1.72 x10 3/uL 1.0-3.8 N MONOCYTE # (test code = MO#) 0.66 x10 3/uL 0.1-0.8 N EOSINOPHIL # (test code = EO#) 0.11 x10 3/uL 0.0-0.2 N BASOPHIL # (test code = BA#) 0.01 x10 3/uL 0.0-0.2 N NUCLEATED RBC # (test code = NRBC#) 0.00 x10 3/uL 0.0-0.1 N MANUAL DIFF REQUIRED (test c ode = MDIFF) NO CBC W/AUTO [id number] 12:06:00* Test Item Value Reference Range Interpretation Comme nts WHITE BLOOD CELL (test code = WBC) x10 3/uL 4.5-11.0 RED BLOOD CELL (test code = RBC) x10 6/uL 3.54-5.02 HEMOGLOBIN (test code = HGB) 11.6 g/dL 11.0-15.0 N HEMATOCRIT (test code = HCT) 35.0 % 33.0-45.0 N MEAN CELL VOLUME (test code = MCV) fL 81.0-99.0 MEAN CELL HGB (test code = MCH) pg 27.0-33.0 MEAN CELL HGB CONCETRATION ( test code = MCHC) g/dL 33.0-37.0 RED CELL DISTRIBUTION WIDTH CV (test code = RDW) % 11.5-14.5 PLATELET COUNT (test code = PLT) 217 x10 3/uL 150-400 N NEUTROPHIL % (test code = NT%) % 56.0-77.0 LYMPHOCYTE % (test code = LY%) % 14.0-32.0 NEUTROPHIL # (test code = NT#) x10 3/uL 2.0-7.6 LYMPHOCYTE # (test code = LY#) x10 3/uL 1.0-3.8 MANUAL DIFF REQUIRED (test c ode = MDIFF) - US PREG AFTER [id number] 13:06:00 [facility] 1990 Sex: F Name: KIRAN ARZATE [facility] : 1990 Age/S: 29 / F [address] [place] [address] Unit #: [id number] Loc: [place] [address] Phys: Sharon Falk MD Acct: [id number] Dis Date: Status: REG CLI PHONE #: [phone] Exam Date: 07/13/2020 1228 FAX #: [phone] Reason: . EXAMS: CPT CODE: [id number] US PREG AFTER TRI 57595 PROCEDURE: OBSTETRICAL ULTRASOUND INDICATION: .;DEE 08/24/2020 COMPARISON: There are no previous relevant studies available for correlation. TECHNIQUE: Obstetrical ultrasound is performed with grayscale and M-mode imaging. LIMITATIONS: positioning. FINDINGS: Single living intrauterine fetus in cephalic presentation at an estimated gestational age of 34 weeks 5 days. heart rate 144. Within limitations, no abnormality demonstrated. The placenta is anterior grade 2 with no evidence for previa. Small intraplacental sonolucencies. No retroplacental fluid collection. No evidence for previa. Amniotic fluid volume subjectively normal. The cervix is not adequately visualized. ULTRASOUND FINDINGS: Gestation: Single: Yes Cardiac Motion: Yes (BPM):144 Presentation: Cephalic Placenta Location: Anterior Placenta Grade: 2 Placenta Previa: No ANATOMY: Head (Ventricles, Choroid, Cerebellum, Face): Limited Four Chamber Heart: Yes Cord ins./Vessel #: Yes 3 vessel Spine long: Limited Spine transverse: Yes Stomach: Yes Bladder: Yes Kidneys: Yes Extremities: Limited Amniotic Fluid: Yes Uterus/Cervix/Adnexa: Clinical: LMP= MA= 34wks 0days Ultrasound: MA= 34 wks 5 days BPD: 8.6 cm 34 weeks 5 days HC: 30.9 cm 34 weeks 4 days AC: 30.4 cm 34 weeks 2 days FL: 6.8 cm 34 weeks 5 days Ratios Ratio Range PAGE 1 Signed Report (CONTINUED) Name: KIRAN ARZATE [facility] : 1990 Age/S: 29 / F [address] [place] [address] Unit #: [id number] Loc: [place] [address] Phys: Sharon Falk MD Acct: [id number] Dis Date: Status: REG CLI PHONE #: [phone] Exam Date: 07/13/2020 1228 FAX #: [phone] Reason: . EXAMS: CPT CODE: [id number] US PREG AFTER 1ST TRI 04962 (Continued) HC/AC 1.02 0.93-1.11 FL/AC 22.21 20.00-24.00 FL/BPD 78.27 71.0-87.0 EFW: 2445 +/- 377 gm LMP%: 59 DESTINY: 9.9 cm S/D Ratio: 3.0 IMPRESSION: 1. Single living intrauterine fetus in cephalic presentation at an estimated gestational age of 34 weeks 5 days. 2. No acute findings. SL: [id number] at 1306 Reported and signed by: Yonis Hurd M.D. CC: Allegra Cazares MD; Sharon Falk MD Technologist: Kathy Rice RDMS(Zena)(BR) Trnscb Date/Time: 07/13/2020 (1306) DestineeL Orig Print D/T: S: 07/13/2020 (4718) Probe: PAGE 2 Signed Report History and Physical Notes Date/Time Note Provider Source 2023-09-04 07:02:08 The patient was seen and examined on 08/29/23. There have been no changes in assessment and plan. Indication for procedure is Desires for permanent sterilization. Risk reducing salpingectomy Will proceed with scheduled Laparoscopic Bilateral salpingectomy . Informed consent was reviewed and all questions were answered. D DEVELOPMENT SPECIALIST Source Note - Layne Tena MD - 08/29/2023 4:00 PM CHILD DEVELOPMENT SPECIALIST Chief complaint: Chief Complaint Patient presents with Pre-Op Exam 32 year old Patient's last menstrual period was 08/28/2023 (exact date). presents for preop. Diagnosis: Desires for permanent sterilization. Risk reducing salpingectomy Planned procedure: Laparoscopic Bilateral salpingectomy Date of surgery: 09/04/23 Histories OB History Para Term AB Living 5 4 4 1 4 SAB IAB Ectopic Multiple Live Births 0 4 # Outcome Date GA Lbr Diego/2nd Weight Sex Delivery Anes PTL Lv 5 Term 06/08/23 39w1d 7 lb 1.6 oz (3.22 kg) M NORMAL SPONT EPI N CARMEL 4 Term 2020 F NORMAL SPONT CARMEL 3 Term 2020 F NORMAL SPONT CARMEL 2 AB 2019 1 Term 2016 M NORMAL SPONT CARMEL Past Medical History: Diagnosis Date Thyroid disease Family History Problem Relation Age of Onset Hypertension Mother High cholesterol Mother Diabetes Mother High cholesterol Father Depression Father Hypertension Maternal Grandfather High cholesterol Maternal Grandfather Diabetes Maternal Grandfather Diabetes Paternal Grandfather High cholesterol Paternal Grandfather Hypertension Paternal Grandfather Family Status Relation Name Status Mo (Not Specified) Fa (Not Specified) MGFa (Not Specified) PGFa (Not Specified) History reviewed. No pertinent surgical history. Social History Socioeconomic History Marital status: Single Spouse name: Ken Number of children: 4 Tobacco Use Smoking status: Former Packs/day: 0.25 Years: 15.00 Additional pack years: 0.00 Total pack years: 3.75 Types: Cigarettes Passive exposure: Never Smokeless tobacco: Never Vaping Use Vaping Use: Former Substances: Nicotine, Flavoring Devices: Disposable Substance and Sexual Activity Alcohol use: Not Currently Drug use: Never Sexual activity: Yes Partners: Male control/protection: None Social History Substance and Sexual Activity Sexual Activity Yes Partners: Male control/protection: None Labs No new labs Radiology No new radiology. Allergies Kiran has No Known Allergies. Medications Kiran has a current medication list which includes the following prescription(s): docusate, ferrous sulfate, ibuprofen, and vitamin w/fa. Review of Systems Constitutional: Negative for fatigue and fever. HENT: Negative for congestion and sore throat. Eyes: Negative for discharge. Respiratory: Positive for cough (imporved over the last few weeks). Negative for chest tightness and shortness of breath. Cardiovascular: Negative for chest pain and palpitations. Gastrointestinal: Negative for abdominal pain. Genitourinary: Negative for vaginal bleeding, difficulty urinating and pelvic pain. Skin: Negative for color change. Neurological: Negative for seizures and headaches. Psychiatric/Behavioral: Negative for agitation and dysphoric mood. Hematological: Negative for adenopathy. Endocrine: Negative for goiter. BP 129/81 (BP Location: Left arm, Patient Position: Sitting, BP CUFF SIZE: Adult Large) | Pulse 83 | Temp 36.7 ?C (98.1 ?F) (Oral) | Resp 16 | Ht 5' 9" (1.753 m) | Wt 209 lb 1.6 oz (94.8 kg) | LMP 08/28/2023 (Exact Date) | No | BMI 30.88 kg/m? Pregravid BMI: Could not be calculated Physical Exam Vitals reviewed. Constitutional: She appears well-developed and well-nourished. Her body habitus is obese. Cardiovascular: Regular rate and rhythm. No murmur auscultated. Pulmonary/Chest: Breath sounds clear to auscultation. Normal inspiratory effort. Abdominal: Abdomen is soft. No mass palpated. There is no rigidity and no guarding. Neuro/Psychiatric: She has a normal mood and affect. Skin: Skin normal. Assessment/Plan Consultation for sterilization (primary encounter diagnosis) Plan: Reviewed with patient risks of bowel/bladder/nerve and vessel injury. Pt is ok with blood transfusion if medically necessary. Reviewed preop lab orders and timing. NPO after midnight. All questions were answered and informed consent was signed. Pre-op exam Plan: Cbc with Diff, Workup, Blood Bank, HCG, QUANTITATIVE, D DEVELOPMENT SPECIALIST [facility] [employer] Progress Notes Date/Time Note Provider Source 2023-03-03 11:45:00 Formatting of this n ote might be different from the original. ROUTINE VISIT 03/03/2023 11:32 AM SUBJECTIVE Kiran Arzate is a 32 year old at 22w2d who presents for routine visit. She has no complaints today; denies contractions, loss of fluid, vaginal bleeding, and signs or symptoms of pre-eclampsia. Good movement. OBJECTIVE BP 112/72 (BP Location: Left arm, Patient Position: Sitting, BP CUFF SIZE: Adult Medium) | Pulse 82 | Temp 36.6 ?C (97.8 ?F) | Ht 5' 9" (1.753 m) | Wt 203 lb 14.4 oz (92.5 kg) | LMP 09/28/2022 (Exact Date) | BMI 30.11 kg/m? Physical Exam: Gen: A&Ox3, NAD CV: RRR, Pulm: No labored breathing Abd: Soft, gravid, NTTP, ND, no rebound or guarding Ext: No calf tenderness : deferred ASSESSMENT: Kiran Arzate is a 32 year old at 22w2d who presents for routine visit. There is no problem list on file for this patient. PLAN 1. 22 weeks gestation of - POCT URINALYSIS W/O SPECIFIC GRAVITY 2. High-risk in second trimester --No records yet --Will order New OB labs -- anatomy US ordered and still needs to be scheduled --Discussed with patient plan for 3rd trimester lab testing --All questions answered [facility] Health Notes Date/Time Note Provider Source 2023-09-04 07:47:19 LAPAROSCOPIC BILATERAL SALPINGECTOMY OPERATIVE REPORT Date: 09/04/2023 Preoperative Diagnosis: Encounter for permanent sterilization Postoperative Diagnosis: Surgical Sterilization Procedure: Laparoscopic Bilateral Salpingectomy Faculty Surgeon: Layne Tena MD Resident Surgeon: Elizabet Godoy MD Anesthesia: General Specimens: right and left fallopian tubes Findings: Normal appearing uterus and ovaries, right fallopian tubes with small paratubal cyst, left fallopian tube with small fat globule near fimbria Indication: Multiparous desiring permanent sterilization. The patient understood risks, benefits and alternatives to the procedure, and informed consent was signed. All questions were answered prior to the procedure. Narrative: After obtaining informed consent, patient was brought to the OR. Under satisfactory general anesthesia, the patient was placed on the operative table in the dorsal lithotomy position with the legs in Yellow fin stirrups and draped in the normal sterile fashion. Bear catheter was placed. Spongestick was placed in vagina. Attention was turned to the abdomen. Abdominal entry was achieved at umbilicus via direct entry under laparascopic guidance using 5 mm trocar. Abdomen was insufflated with CO2. No entry trauma was noted. A 5 mm trocar was placed in LLQ and 8 mm trocar was placed in RLQ under direct laparoscopic visualization. The abdominal cavity was assessed. The right fallopian tube was identified and followed to its termination at the fimbria. The fimbria was held at the end with a laparoscopic grasper as the Ligasure device was used to transect the right fallopian tube all the way to the tubal insertion at the uterus. Next, left tube was identified and followed to its termination at the fimbria. The fimbria was held at the end with a laparoscopic grasper as the Ligasure device was used to transect the left fallopian tube all the way to the tubal insertion at the uterus. Hemostasis was ensured, and the ports were removed under direct visualization. Subcuticular sutures using Monocryl was used to re-approximate the skin of the incision sites, which were covered with Dermabond. Sponge stick and bear catheter were removed. Case was considered terminate at this point. Lap and instrument counts were correct x 2. Patient was extubated in the OR and brought in stable condition to PACU. Condition of Patient after Surgery: Good Estimated Blood Loss: <5 cc Complications: None Elizabet Godoy MD 09/04/2023 D DEVELOPMENT SPECIALIST Associated attestation - Layne Tena MD - 09/04/2023 8:41 AM CHILD DEVELOPMENT SPECIALIST I was present for and supervised the entire procedure(s). OG-OBSTETRICS & GYNECOLOGY [facility] 2023-09-02 09:45:00 Images from the original note were not included. Venipuncture collection performed by clean technique on the right anticubitus. Total of 1 attempts were made. Slight pressure and a bandage/dressing were applied to the site(s). The patient experienced no complications. The following specimens were processed according to instructions and sent to [facility] laboratories per lab order on 09/02/2023 : LT BLUE SST 1 RED LAV 2 PPT DK GREEN (LiHep) DK GREEN (SodH) JOAY DK BLUE (K2) DK BLUE (S) ACD Blood Culture NIPT/NTD D DEVELOPMENT SPECIALIST [facility] 2023-08-30 09:57:33 Images from the original note were not included. Your procedure is at [facility] on 09/04/23. The address is [address] [place] [id number]. [facility] nursing staff will call you the workday before your procedure to let you know what time to arrive.On the day of your procedure, please go inside that door and check in at the desk. Please note: You may not travel home alone and that includes in a taxi or by bus. We must speak to your Responsible Adult (who will be picking you up) the morning of your procedure, before the start of your procedure. This person must be an adult over the age of 18 years of age. Do not eat any solid food after midnight the night before surgery. You may have sips of clear liquids such as water, gatorade, and sprite up until two hours before your scheduled procedure. You may take your medications with a sip of water as directed by physician. Anticoagulants will be per physician guidance. Medication Note(s)/Instructions: N/A Pt educated and understanding was verbalized, with no questions or concerns at this time. Teach-back method repeated and confirmed. There are pre-op orders for labs and patient is aware. Pending screening, we may test for COVID. If a patient tests positive, their cases are cancelled and/or rescheduled. COVID SCREENING NOTE: Denies COVID symptoms, no testing required. Additional requests, questions, concerns: Patient verbalized understanding of pre-op instructions and voiced no further questions at this time. [facility] 2023-04-20 16:00:00 Formatting of this n ote is different from the original. ROUTINE VISIT 04/20/2023 4:09 PM SUBJECTIVE Kiran Arzate is a 32 year old at 32w1d who presents for routine visit. She has no complaints today: loss of fluid, vaginal bleeding, and signs or symptoms of pre-eclampsia. Good movement. Occasional contractions. OBJECTIVE BP 111/70 (BP Location: Right arm, Patient Position: Sitting, BP CUFF SIZE: Adult Large) | Pulse 86 | Temp 36.8 ?C (98.2 ?F) (Oral) | Resp 17 | Ht 5' 9" (1.753 m) | Wt 219 lb 14.4 oz (99.7 kg) | LMP 09/28/2022 (Exact Date) | BMI 32.47 kg/m? Physical Exam: Gen: A&Ox3, NAD CV: RRR, Pulm: No labored breathing Abd: Soft, gravid, NTTP, ND, no rebound or guarding Ext: No calf tenderness : deferred ASSESSMENT: Kiran Arzate is a 32 year old at 32w1d who presents for routine visit. Patient Active Problem List Diagnosis Consultation for sterilization High-risk in second trimester PLAN 1. 32 weeks gestation of - POCT URINALYSIS W/O SPECIFIC GRAVITY 2. High-risk in third trimester 3. Chlamydia trachomatis infection of lower genitourinary sites --MARIA D next appt --Reviewed with patient FAC -- labor warnings reviewed --All questions answered [facility] [employer] 2023-04-03 14:30:00 Formatting of this n ote is different from the original. Images from the original note were not included. Venipuncture collection performed by clean technique on the left anticubitus. Total of 1 attempts were made. Slight pressure and a bandage/dressing were applied to the site(s). The patient experienced no complications. The following specimens were processed according to instructions and sent to [facility] laboratories per lab order on today: LT BLUE SST 4 RED 1 LAV 2 PPT DK GREEN (LiHep) DK GREEN (SodH) JOYA DK BLUE (K2) DK BLUE (S) ACD Blood Culture NIPT/NTD Patient has been identified by name and was provided with cup, antiseptic towelette, and clean catch instructions. 2 urine specimen(s) sent. Unpreserved Urine Culture Aptima tube 1 Other urine Urine drug [facility] - Health 2023-03-24 16:15:00 Formatting of this n ote is different from the original. ROUTINE VISIT 03/24/2023 4:22 PM SUBJECTIVE Kiran Arzate is a 32 year old at 28w2d who presents for routine visit. She has no complaints today: loss of fluid, vaginal bleeding, and signs or symptoms of pre-eclampsia. Good movement. Occasional contractions. OBJECTIVE BP 113/72 | Pulse 92 | Resp 18 | Ht 5' 9" (1.753 m) | Wt 210 lb (95.3 kg) | LMP 09/28/2022 (Exact Date) | BMI 31.01 kg/m? Physical Exam: Gen: A&Ox3, NAD CV: RRR, Pulm: No labored breathing Abd: Soft, gravid, NTTP, ND, no rebound or guarding Ext: No calf tenderness : deferred ASSESSMENT: Kiran Arzate is a 32 year old at 28w2d who presents for routine visit. Patient Active Problem List Diagnosis Consultation for sterilization High-risk in second trimester PLAN 1. 28 weeks gestation of - POCT URINALYSIS W/O SPECIFIC GRAVITY 2. High-risk in third trimester --records reviewed with US and labs, DEE updated --reviewed US report from --all normal and c/w prior dating. 3. Consultation for sterilization --MAP signed --plan interval BTL unless CD needed --3rd trimester labs needed 4. Need for Tdap vaccination --Tdap ordered --Reviewed with patient FAC -- labor warnings reviewed --All questions answered T [facility] 2023-03-21 15:00:00 Formatting of this n ote might be different from the original. Growth US from 03/21/2023 was normal. [facility] 2023-03-07 11:00:49 Formatting of this n ote might be different from the original. Records received from Dr Griffin's office in [facility]. US 12/08/22: 13w1d with EDC 06/14/2023. 12/12/22: NIPS negative x4, male. 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 12/08/22: gc/ct negative. HepB negative HIV non-reactive Pap Negative, HPV negative. Rubella Positive Syphilis Ab non reactive Hb 12.3, plt 302. O positive 01/05/23: afp negative for [facility] 2023-03-06 08:05:25 Formatting of this n ote might be different from the original. Medical records received from Dr Griffin placed on provider desk for review and signature. T Katherine Terry [facility] 2023-03-03 12:45:00 Formatting of this n ote might be different from the original. Pt specified that she did not want to complete glucose testing today, that she is waiting for results to be sent to Layne Tena MD from previous gyno/ob doctor. She will follow up next week to see if records are faxed if not she will come in to complete ALL blood work and glucose testing. Alvin Guzmán 03/03/2023 1:02 PM Alvin Guzmán [facility] 2021-07-03 10:08:00 [facility] ([facility]) OB Disch REPORT#:[id number] REPORT STATUS: Signed DATE:07/03/21 TIME: 1008 PATIENT: KIRAN ARZATE UNIT #: [id number] ROOM/BED: [place] [address] : [birth year] AGE: 30 SEX: F ATTEND: Sharon Falk MD ADM AUTHOR: Sharon Falk MD * ALL edits or amendments must be made on the electronic/computer document * Subjective Subjective Admission EGA: Weeks: 39 Days: 3 EGA at delivery (wks/days): 39 weeks (39.3) Status/day: post (DAY #2) Patient reports: Patient reports: Yes: normal lochia, pain management effective, tolerating po well, voiding well, voiding without pain, tolerating ambulation, flatus. No: complaints, bowel movement, nausea, vomiting, excessive bleeding, abdominal pain, perineal pain, difficulty nursing, headache, blurred vision. Nursing reports: Nursing reports: No: complaints. Comments: PATIENT IN ROOM C339 RESTING IN BED ASLEEP BUT EASY TO WAKE. ON SOFA SLEEPER ASLEEP. IN [place] ASLEEP. PATIENT WITH NO COMPLAINTS OR PROBLEMS. SHE IS AWARE AND READY FOR DC TO HOME TODAY. PLAN OF CARE DISCUSSED AND SHE VERBALIZED UNDERSTANDING. Objective General VS: Vital Signs Date Temp Pulse Resp B/P B/P Mean Pulse Ox FiO2 07/02-07/03 97.7-98.6 74-82 16 113-127/71-78 97-100 Last Documented: Result Date Time Pulse Ox 98 07/03 0030 B/P 116/75 07/03 0030 Temp 98.6 07/03 0030 Pulse 75 07/03 0030 Resp 16 07/03 0030 B/P Mean 93.0 07/01 1541 PATIENT WEIGHT: Weight (lb): 235 Weight (oz): Weight (kg): 106.594 Physical Exam Breasts: Breasts: normal, filling, non-tender, soft, no erythema Flow: colostrum Nipples: normal, intact Feeding: breast and formula Nursing: fair Cardiac: normal rhythm, no clinically sig murmur, no gallops, no rubs Lungs: clear to auscultation, no rales, no rhonchi, unlabored breathing Neuro: Exam: alert, oriented x3, normal speech, normal gait, CNII-XII grossly intact , reflexes equal bilat DTR's (lower extr): normal 1-2+ Abdomen: post gravid, soft, no abnormal tenderness, no guarding, no rebound tenderness, normoactive bowel sounds Incision site: none Uterus: involution appropriate, non-tender Fundus: firm, below the umbilicus, non-tender Lochia: normal Episiotomy or laceration: none Vulva/Perineum: normal CVA tenderness: none Lower extremities: Edema: trace Nadeem's sign: negative Calf tenderness: negative Results Findings/Data: Laboratory Tests: 07/02 0515 Hematology WBC (4.5 - 11.0 x10 3/uL) 8.0 RBC (3.54 - 5.02 x10 6/uL) 3.72 Hgb (11.0 - 15.0 g/dL) 11.1 Hct (33.0 - 45.0 %) 33.2 MCV (81.0 - 99.0 fL) 89.2 MCH (27.0 - 33.0 pg) 29.8 MCHC (33.0 - 37.0 g/dL) 33.4 RDW (11.5 - 14.5 %) 13.6 Plt Count (150 - 400 x10 3/uL) 215 MPV (7.0 - 9.0 fL) 11.0 H Neut % (Auto) (56.0 - 77.0 %) 73.3 Lymph % (Auto) (14.0 - 32.0 %) 19.4 [place] % (Auto) (4.8 - 9.0 %) 5.1 Eos % (Auto) (0.3 - 3.7 %) 1.6 Baso % (Auto) (0.0 - 2.0 %) 0.1 Neut # (Auto) (2.0 - 7.6 x10 3/uL) 5.86 Lymph # (Auto) (1.0 - 3.8 x10 3/uL) 1.55 [place] # (Auto) (0.1 - 0.8 x10 3/uL) 0.41 Eos # (Auto) (0.0 - 0.2 x10 3/uL) 0.13 Baso # (Auto) (0.0 - 0.2 x10 3/uL) 0.01 Abs Immat Gran (auto) (0.00 - 0.03 x10 3/uL) 0.04 H Add Manual Diff NO Immature Gran % (0.0 - 2.0 %) 0.5 Nucleated RBC % (0 - 0 %) 0.0 Nucleated RBCs # (Man) (0.0 - 0.1 x10 3/uL) 0.00 Results: labs reviewed, vital signs stable Discharge Summary General Problem List/A P: 1. Active labor at term 2. 39 weeks gestation of 3. Spontaneous vaginal delivery Free Text A P: AVSS No Complaints Abd Non-tender Fundus Firm Minimal Lochia Routine PPD 2 See Orders Plan for Discharge Home Today Follow Up in 6 weeks Assessment: nml progress, breast feeding w/o diff Date of admission: Date of admission: 07/01/21 Admission diagnosis: labor-spontaneous Hospital course: spontaneous labor, spontaneous vag delivery, nml postop/ postpart care Procedures: spontaneous vaginal deliv Discharge condition: stable Discharge to: Home/Self Care Discharge diagnosis: full-term uncomp delivery Discharge management: greater than 30 mins Time spent: Time spent with patient (minutes): 35 >50% spent on counseling/coordination of care: yes Baby A: Vaginal delivery: spontaneous status: live born Gender: female 1 minute: 8 5 minutes: 9 Anomalies: PATIENT DELIVERED WITH RN PRIOR TO OB HOSPITALIST ARRIVAL AND MY ARRIVAL TO BEDSIDE. Nursing data: The data set between the solid lines has been imported from nursing documentation. Any exceptions have been noted below under Provider comments. Delivery date A: 07/01/21 Delivery time infant A: 1320 Birthweight (gm) A: 3220 Feeding preference: Gender A: Female 1 minute A: 8 5 minutes A: 9 10 minutes infant A: Provider comments on imported nursing data: [] Plan: routine care, discharge today Vaginal packing at delivery: No Discharge Instructions Instructions: routine instr sheet given, instr and warnings rev'd, specific instr as noted Diet: Regular Activity: As Tolerated, No Bending, No Driving, No Shaw for 6 Wks, No Strenuous Activity Additional discharge routines: Attending Follow-Up Weight Monitoring: Weekly Immunizations given: Tdap (OFFER), flu (OFFER) Contraception discussed: abstinence for 4-6 weeks, will discuss at PP visit Discharge meds: Continue taking these medications: PNV/FE FUM/FA ( MULTIVITAMIN) 28 MG IRON-800 MCG TAB 1 TABLET ORAL DAILY. Start taking the following new medications: FERROUS SULFATE (FEOSOL) 325 MG TAB 325 MILLIGRAM ORAL DAILY. Qty = 30 Refills = 1 HYDROcodone/APAP (NORCO 5/325) 1 TAB TAB 1 TABLET ORAL EVERY 6 HOURS NEEDED. as needed for PAIN SCALE 6-10 Qty = 30 No Refills IBUPROFEN (MOTRIN) 800 MG TAB 800 MILLIGRAM ORAL EVERY 8 HR NEEDED. as needed for PAIN SCALE 1-5 Qty = 30 Refills = 1 DOCUSATE SODIUM (COLACE) 100 MG CAP 100 MILLIGRAM ORAL TWICE DAILY. as needed for CONSTIPATION Qty = 30 Refills = 1 Prescriptions: e-prescribe Consultation(s): Consultation performed: account consultant, tube and manifold builder, solar sales advisor Add'l Follow-up Appointments Attending Physician: Attending Physician: Sharon Falk MD Attending physician follow up timeframe: In 4-5 weeks at 1012 RPT #:[id number] END OF REPORT [facility] 2021-07-02 08:54:00 [facility] ([facility]) OB Postpart Progr Note REPORT#:[id number] REPORT STATUS: Signed DATE:07/02/21 TIME: 0854 PATIENT: KIRAN ARZATE UNIT #: [id number] ROOM/BED: [place] [address] : 91 AGE: 30 SEX: F ATTEND: Sharon Falk MD ADM AUTHOR: Sharon Falk MD * ALL edits or amendments must be made on the electronic/computer document * Subjective Subjective Admission EGA: Weeks: 39 Days: 3 EGA at delivery (wks/days): 39 weeks (39.3) Status/Day: post (DAY #1) Patient reports: Patient reports: Yes no complaints, Yes normal lochia, Yes pain management effective, Yes tolerating po well, Yes voiding well, Yes voiding without pain, Yes tolerating ambulation, Yes flatus, No bowel movement, No nausea, No vomiting, No excessive bleeding, No abdominal pain, No perineal pain, No difficulty nursing, No headache, No blurred vision Nursing reports: Nursing reports: No complaints Comments: PATIENT IN ROOM C339 SITTING UP IN BED AND UP AMBULATING IN ROOM WITH SHIRT OFF. PATIENT WITH NO COMPLAINTS OR PROBLEMS AND ASLEEP IN [place]. RN ON ROUNDS WITH ME. PLAN OF CARE DISCUSSED AND PATIENT VERBALIZED UNDERSTANDING DC TO HOME FOR TOMORROW IF STABLE. Objective Nursing Documentation Review Nursing Data: The data set between the solid lines has been imported from nursing documentation. Any exceptions have been noted below under Provider comments. Feeding preference: Post hemorrhage risk score: Medium Risk for Hemorrhage. Provider comments on imported nursing data: [] General VS: Vital Signs: Date Time Temp Pulse Resp B/P B/P Pulse O2 O2 Flow FiO2 Mean Ox Delivery Rate 07/02 0420 98.1 77 16 109/70 99 07/02 0027 98.3 72 17 110/72 98 07/01 2019 98.0 80 17 112/72 97 07/01 1629 97.8 88 18 121/79 98 07/01 1545 86 100 07/01 1541 93.0 07/01 1541 90 123/78 07/01 1540 96 99 07/01 1535 98 99 07/01 1530 102 100 07/01 1526 95.0 07/01 1526 88 124/78 07/01 1525 83 99 07/01 1517 90 100 07/01 1512 93 100 07/01 1511 79.0 07/01 1511 84 112/56 07/01 1507 90 99 07/01 1502 88 99 07/01 1457 88 99 07/01 1456 81.0 07/01 1456 94 111/56 07/01 1452 103 99 07/01 1447 86 98 07/01 1442 93 100 07/01 1441 83.0 07/01 1441 79 122/58 07/01 1437 89 99 07/01 1432 92 98 07/01 1427 96 99 07/01 1426 98.0 07/01 1426 96 120/86 07/01 1422 86 100 07/01 1417 89 99 07/01 1412 90 99 07/01 1411 16 07/01 1411 86.0 07/01 1411 86 120/63 07/01 1407 77 100 07/01 1402 90 98 07/01 1357 89 100 07/01 1356 16 07/01 1356 87.0 07/01 1356 77 121/67 07/01 1352 80 100 07/01 1347 93 100 07/01 1342 94 100 07/01 1341 97.9 18 07/01 1341 88.0 07/01 1341 92 124/70 07/01 1337 89 99 07/01 1332 94 99 07/01 1327 90 99 07/01 1322 88 99 07/01 1317 100 100 07/01 1312 95 100 07/01 1307 82 99 07/01 1302 84 100 07/01 1257 98.0 07/01 1257 80 126/78 98 07/01 1252 83 100 07/01 1247 78 99 07/01 1242 79 100 07/01 1241 91.0 07/01 1241 85 132/66 07/01 1237 79 100 07/01 1232 86 100 07/01 1227 79 100 07/01 1226 92.0 07/01 1226 81 128/70 07/01 1222 80 100 07/01 1217 83 100 07/01 1212 87 100 07/01 1211 95.0 07/01 1211 82 126/73 07/01 1207 80 100 07/01 1202 79 100 07/01 1157 81 100 07/01 1156 87.0 07/01 1156 75 120/66 07/01 1152 83 100 07/01 1147 82 99 07/01 1142 86 100 07/01 1141 77.0 07/01 1141 85 108/58 07/01 1137 83 99 07/01 1132 82 99 07/01 1127 76.0 07/01 1127 84 105/57 100 07/01 1122 90 99 07/01 1117 89 99 07/01 1112 87 99 07/01 1111 89.0 07/01 1111 85 116/71 07/01 1107 89 97 07/01 1102 81 99 07/01 1057 91.0 07/01 1057 77 118/73 99 07/01 1052 84 99 07/01 1047 82 99 07/01 1042 92 98 07/01 1041 86.0 07/01 1041 85 118/66 07/01 1037 80 97 07/01 1032 87 98 07/01 1027 87 98 07/01 1026 86.0 07/01 1026 80 116/67 07/01 1022 82 98 07/01 1017 82 100 07/01 1012 83 100 07/01 1000 83 100 07/01 0956 83.0 07/01 0956 83 115/66 07/01 0955 85 100 07/01 0950 84 98 07/01 0945 84 100 07/01 0941 85.0 07/01 0941 81 109/73 07/01 0940 82 100 07/01 0935 81 100 07/01 0930 82 100 07/01 0926 78.0 07/01 0926 84 105/59 07/01 0925 83 100 07/01 0920 85 100 07/01 0915 83 100 07/01 0910 82 100 07/01 0905 81 100 07/01 0900 78 100 07/01 0855 87 98 PATIENT WEIGHT: Weight (lb): 235 Weight (oz): Weight (kg): 106.594 Nutrition assessment: The data set between the solid lines has been imported from the dietitian's assessment. Any exceptions have been noted under Provider comments. BMI Calculated: 34.70 Nutrition related diagnosis: Nutrition diagnosis details: Nutrition problem: Nutrition etiology: Nutrition signs and symptoms: Nutrition prescription: Dietitian name: Assessment completed: Provider comments on imported dietitian assessment: Physical Exam Breasts: Breasts: filling, non-tender, soft Flow: colostrum Nipples: intact Feeding: breast or formula Nursing: fair Cardiac: normal sinus rhythm, no clinically sig murmur, no gallops, no rubs Lungs: clear to auscultation, no rales, no rhonchi Neuro: Exam: alert, oriented x3, normal speech, normal gait, CNII-XII grossly intact , reflexes equal bilat DTR's (lower extr) normal 1-2+ Abdomen: soft, no abnormal tenderness, no guarding, no rebound tenderness, normoactive bowel sounds Incision site: none Uterus: involution appropriate, non-tender Fundus: firm, below the umbilicus, non-tender Lochia: normal Lacerations: Perineal laceration(s): None High vaginal laceration: no Episiotomy or laceration: none Vulva/Perineum: normal CVA tenderness: none Lower extremities: Edema: trace Nadeem's sign: negative Calf tenderness: negative Result Findings/Data: Laboratory Tests: 07/02 0515 Hematology WBC (4.5 - 11.0 x10 3/uL) 8.0 RBC (3.54 - 5.02 x10 6/uL) 3.72 Hgb (11.0 - 15.0 g/dL) 11.1 Hct (33.0 - 45.0 %) 33.2 MCV (81.0 - 99.0 fL) 89.2 MCH (27.0 - 33.0 pg) 29.8 MCHC (33.0 - 37.0 g/dL) 33.4 RDW (11.5 - 14.5 %) 13.6 Plt Count (150 - 400 x10 3/uL) 215 MPV (7.0 - 9.0 fL) 11.0 H Neut % (Auto) (56.0 - 77.0 %) 73.3 Lymph % (Auto) (14.0 - 32.0 %) 19.4 [place] % (Auto) (4.8 - 9.0 %) 5.1 Eos % (Auto) (0.3 - 3.7 %) 1.6 Baso % (Auto) (0.0 - 2.0 %) 0.1 Neut # (Auto) (2.0 - 7.6 x10 3/uL) 5.86 Lymph # (Auto) (1.0 - 3.8 x10 3/uL) 1.55 [place] # (Auto) (0.1 - 0.8 x10 3/uL) 0.41 Eos # (Auto) (0.0 - 0.2 x10 3/uL) 0.13 Baso # (Auto) (0.0 - 0.2 x10 3/uL) 0.01 Abs Immat Gran (auto) (0.00 - 0.03 x10 3/uL) 0.04 H Add Manual Diff NO Immature Gran % (0.0 - 2.0 %) 0.5 Nucleated RBC % (0 - 0 %) 0.0 Nucleated RBCs # (Man) (0.0 - 0.1 x10 3/uL) 0.00 Results: labs reviewed, vitl signs stable Blood Loss Blood loss at delivery: Blood loss at delivery: no more than expected Cause of the bleeding: Management that was provided: QBL at delivery: 100 EBL at delivery: Treatment Prophylaxis Treatment Prophylaxis Bear status: none Diagnosis, Assessment Plan Diagnosis, Assessment Plan Problem List/A P: 1. Active labor at term 2. 39 weeks gestation of 3. Spontaneous vaginal delivery Free text A P: AVSS No Complaints Abd Non-tender Fundus Firm Minimal Lochia Routine PPD 1 See Orders Assessment: nml progress, breast feeding w/o diff Plan: routine care, discharge tomorrow Consultation(s): Consultation performed: account consultant, tube and manifold builder, solar sales advisor Plan discussed with: patient, spouse/partner, nurse Comments: SHARON FALK MD PA at 1425 RPT #:[id number] END OF REPORT [facility] 2021-07-01 13:48:00 [facility] ([facility]) OB Intrapart Prog Note REPORT#:[id number] REPORT STATUS: Signed DATE:07/01/21 TIME: 1348 PATIENT: KIRAN ARZATE UNIT #: [id number] ROOM/BED: [place] [address] : 91 AGE: 30 SEX: F ATTEND: Allegra Cazares MD ADM AUTHOR: Ashtyn Bazzi DO * ALL edits or amendments must be made on the electronic/computer document * Subjective Subjective Comments: Was called to pt room as pt ready for delivery. Upon arrival, RN at bedside as pt was delivering. Baby to warmer w RN after cord clamped and cut. Apparently there was no dytocia but pt stopped pushing and there was a slight lag after del of head to del of shoulders, but not shoulder dystocia or nuchal per RN. Cord gas/blood obtained. Dr. Falk arrived for rest of delivery. Please see his note for details. Perineum was intact. at 1350 RPT #:[id number] END OF REPORT [facility] 2021-07-01 13:41:00 [facility] ([facility]) OB Delivery Note REPORT#:[id number] REPORT STATUS: Signed DATE:07/01/21 TIME: 1341 PATIENT: KIRAN ARZATE UNIT #: [id number] ROOM/BED: [place] [address] : 91 AGE: 30 SEX: F ATTEND: Allegra Cazares MD ADM AUTHOR: Sharon Falk MD * ALL edits or amendments must be made on the electronic/computer document * OB Delivery Nursing Documentation Review Nursing data: The data set between the solid lines has been imported from nursing documentation. Any exceptions have been noted below under Provider comments. _ ROM date: 07/01/2021 ROM time: 11:55 Membranes rupture method: AROM BY OB HOSPITALIST Amniotic fluid color: CLEAR Amniotic fluid amount: MODERATE Steroids prior to arrival: N/A Antibiotic prophylaxis given:N/A Post hemorrhage risk score: Medium Risk for Hemorrhage. Delivery date infant A: 07/01/2021 Delivery time infant A: 13:20pm Birthweight (gm) infant A: 3220 Weight (lb) infant A: 7# Weight (oz) infant A: 2oz Gender infant A: FEMALE 1 minute A: 8 5 minutes infant A: 9 10 minutes infant A: Cord pH obtained infant A: Vacuum time infant A: Vacuum # pulls A: Vacuum # popoffs infant A: QBL at delivery: 100ml __ Provider comments on imported nursing data: [] Pre-delivery GBS status: GBS status: negative [place] evaluation at delivery: NRP certified personnel Admission EGA: Weeks: 39 Days: 3 EGA at delivery (wks/days): 39 weeks (39.3) Admission indication: SPONT ACTIVE LABOR TERM Steroids Prior to Delivery Steroids prior to delivery: N/A Baby A Information Baby A information Delivery date: 07/01/21 Delivery time: 1320 status: live born Wt of baby (grams): 3220 Wt of baby (lbs/oz): 7# 2oz Gender: female 1 minute: 8 5 minutes: 9 Presentation: vertex Anomalies: PATIENT DELIVERED WITH RN PRIOR TO OB HOSPITALIST ARRIVAL AND MY ARRIVAL TO BEDSIDE. ABG details Baby A Cord blood gases: collected Nuchal cord Baby A Nuchal cord: no Additional comments: CORD GASES REQUESTED AND SENT AND PENDING AT 13:45 Vaginal Delivery Vaginal delivery: Labor: spontaneous Medications/Devices used: oxytocin Vaginal delivery: spontaneous Amniotic fluid: clear Anesthesia type: no anesthesia Episiotomy: none Episiotomy repair: not applicable Laceration repair: not required (N/A) Vaginal hematoma: N/A Placenta: spontaneous, intact, sent to pathology Post delivery meds used: oxytocin Count: correct, vag exam neg for sponges Vaginal packing: No Mother's condition: mother stable 's condition: infant stable in room Lacerations: Perineal laceration(s): None High vaginal laceration: no Extraction details OVD performed: no Maneuver(s): Action: Steve maneuver Staff present: RN's Shoulder dystocia present: no Fundal pressure applied: no Note dictated: No Blood Loss/Details Blood loss at delivery: no more than expected QBL at delivery (ml's): 100 at 1346 RPT #:[id number] END OF REPORT [facility] 2021-07-01 12:08:00 [facility] ([facility]) OB Intrapart Prog Note REPORT#:[id number] REPORT STATUS: Signed DATE:07/01/21 TIME: 1208 PATIENT: KIRAN ARZATE UNIT #: [id number] ROOM/BED: : 91 AGE: 30 SEX: F ATTEND: Allegra Cazares MD ADM AUTHOR: Ashtyn Bazzi DO * ALL edits or amendments must be made on the electronic/computer document * Subjective Subjective Comments: I spoke w Dr. Falk earlier in the morning about AROM, b/c difficulty with TOCO. And possible decel; upon arrival to room, cxn and baby both picking up just fine. A bit later, RN did call reporting that difficult to monitor cxn. Therefore I d/ w pt and her mother, the need to AROM and IUPC. R/B/A d/w pt and she was consenting to procedure. Pitocin at 12 mu, and IV fluids , first 1 L going. AROm, Clear; strechy 5 cm/ 70%/ -2 IUPC placed well NST 120 Cat 1 thus far Cxn every 1-2 cm Pt was feeling the cxn pain. Rec IV pain meds as per Dr. Falk if not able to get epidural yet ( needed 2 L of LR prior). j Dr. Falk messaged update. at 1211 RPT #:[id number] END OF REPORT [facility] 2021-07-01 07:39:00 [facility] ([facility]) OB Admission / H P REPORT#:[id number] REPORT STATUS: Signed DATE:07/01/21 TIME: 0739 PATIENT: KIRAN ARZATE UNIT #: [id number] ROOM/BED: : 91 AGE: 30 SEX: F ATTEND: Allegra Cazares MD ADM AUTHOR: Sharon Falk MD * ALL edits or amendments must be made on the electronic/computer document * OB History Nursing Documentation Review Nursing data: The data set between the solid lines has been imported from nursing documentation. Any exceptions have been noted below under Provider comments. Current data Steroids prior to arrival: ROM date: ROM time: EDC date: 07/05/21 Gestational age (labor triage): 39.3 weeks Post hemorrhage risk score: Low Risk for Hemorrhage. Prior history : 3 Para: 1 Term: 1 : 0 Abortions spontaneous: 1 Abortions induced: 0 Living children: 1 Ectopic: 0 Stillbirths: 0 Live births: 1 deaths: 0 Number of previous C/S: 0 Reported maternal labs/data Blood type: O Rh type: POS Rubella: IMMUNE Hepatitis B: NEG HIV exposure test: NEG VDRL: NEG Group B beta strep: NEG Rho(D) immune globulin this preg: N/A Monitor mode - UA: Feeding preference: Provider comments on imported nursing data: [] Chief complaint: uterine contractions, discomfort history: : 3 Term: 1 : 0 Abortus: 1 Living children: 1 Complications (prev preg): SEE RECORD Previous : none Number of prev : 0 Current : Best EDC: 07/05/21 Admission EGA (weeks) 39 Admission EGA (days) 3 EDC based on: LMP Steroids prior to delivery: N/A Progesterone for PTB: N/A Labs: Blood type: O Rh: positive Rubella: immune Hepatitis B: negative HIV: negative STD: negative Syphilis: currently negative GBS: negative Date Rhogam administered: N/A Procedures: non stress test Past History Alcohol Use Denies EtOH use Drug Use Denies recreational drugs Smoking status: Smoking status for patients 13 years old or older: Never Smoker Medications: Home Medications: PNV/FE FUM/FA ( MULTIVITAMIN) 1 TAB PO DAILY Allergies: Coded Allergies: No Known Allergies (07/01/21) Review of Systems Constitutional: Denies: chills, fatigue, fever, generalized weakness, lethargy, malaise, recent wt loss, other. All systems rev neg: except as marked Objective General VS: Last Documented: Result Date Time B/P Mean 90.0 07/01 0108 B/P 125/68 07/01 0108 Temp 97.9 07/01 0108 Pulse 92 07/01 010 Resp 16 07/01 0108 Vital Signs Date Temp Pulse Resp B/P B/P Mean Pulse Ox FiO2 07/01 97.9 92 16 125/68 90.0 PATIENT WEIGHT: Weight (lb): 235 Weight (oz): Weight (kg): 106.594 Physical Exam HEENT: normocephalic w/o injury, pupils equal Cardiac: regular rate and rhythm, no clinically sig murmur, no gallops, no rubs Lungs: clear to auscultation, no rales, no rhonchi, unlabored breathing Breasts: WNL Neuro: Exam: alert, oriented x3, normal speech, normal gait, CNII-XII grossly intact , reflexes equal bilat DTR's (lower extr): normal 1-2+ Abdomen: gravid, soft, no abnormal tenderness, no guarding, no rebound tenderness, normoactive bowel sounds Musculoskeletal: normal inspection Genitourinary: no bladder distention, no flank pain, no bear Uterine activity: Monitor: toco Frequency (description): regular Frequency (minutes): 5 Duration (seconds): 35 Intensity: mild Resting tone: relaxed Tachysystole: No Pelvic exam: Pelvis clinically adequate: yes, inlet appears appropriate, pubic bone config appropr, no midpelvic contraction Vulvar lesions: none, no evidence herpetic les, no evidence of other STD Vagina: normal, non-septated, w/o apparent lesions Exam: soft, non-tender, approp size for gest age Cervical/ exam: Dilatation (cm): 4 Effacement (%): 80 Est wt (gms): 3300 Suspected macrosomia: No Suspected > 5000 grams: No station: - 2 presentation: cephalic Gaspar Score Gaspar Score Response Value Dilation: 3-4 cm (2) 2 Effacement: 80-100% (3) 3 Station: -2 (1) 1 Position: posterior (0) 0 Consistency: soft (2) 2 Total 8 Membranes: Membranes: Intact Lower extremities: Edema: trace Baby A: Baby A baseline: 140 bpm Baby A variability: moderate 6-25 bpm Baby A accelerations: 15 X 15 Baby A decelerations: none Baby A FHR category: category 1 Result Findings/Data: Laboratory Tests: 07/01 07/01 07/01 0645 0150 0144 Hematology WBC (4.5 - 11.0 x10 3/uL) 8.3 RBC (3.54 - 5.02 x10 6/uL) 3.60 Hgb (11.0 - 15.0 g/dL) 11.3 Hct (33.0 - 45.0 %) 33.1 MCV (81.0 - 99.0 fL) 91.9 MCH (27.0 - 33.0 pg) 31.4 MCHC (33.0 - 37.0 g/dL) 34.1 RDW (11.5 - 14.5 %) 13.7 Plt Count (150 - 400 x10 3/uL) 212 MPV (7.0 - 9.0 fL) 10.7 H Neut % (Auto) (56.0 - 77.0 %) 70.4 Lymph % (Auto) (14.0 - 32.0 %) 20.4 [place] % (Auto) (4.8 - 9.0 %) 7.2 Eos % (Auto) (0.3 - 3.7 %) 1.3 Baso % (Auto) (0.0 - 2.0 %) 0.2 Neut # (Auto) (2.0 - 7.6 x10 3/uL) 5.87 Lymph # (Auto) (1.0 - 3.8 x10 3/uL) 1.70 [place] # (Auto) (0.1 - 0.8 x10 3/uL) 0.60 Eos # (Auto) (0.0 - 0.2 x10 3/uL) 0.11 Baso # (Auto) (0.0 - 0.2 x10 3/uL) 0.02 Abs Immat Gran (auto) (0.00 - 0.03 x10 3/uL) 0.04 H Add Manual Diff NO Immature Gran % (0.0 - 2.0 %) 0.5 Nucleated RBC % (0 - 0 %) 0.0 Nucleated RBCs # (Man) (0.0 - 0.1 x10 3/uL) 0.00 Serology SARS-CoV-2 Ag (Rapid) (Negative) Negative Urines Urine Color (YEL/STRAW) YELLOW Urine Appearance (CLEAR) SL CLOUDY Urine pH (5.0 - 7.0) 6.0 Ur Specific [place] (1.005 - 1.030) 1.021 Urine Protein (NEGATIVE) NEGATIVE Urine Glucose (UA) (NEGATIVE) NEGATIVE Urine Ketones (NEGATIVE) TRACE H Urine Blood (NEGATIVE) NEGATIVE Urine Nitrite (NEGATIVE) NEGATIVE Urine Bilirubin (NEGATIVE) NEGATIVE Urine Urobilinogen (0.2 - 1.0 mg/dL) 2.0 H Ur Leukocyte Esterase (NEGATIVE) NEGATIVE Urine RBC (0 - 3 RBC/HPF) 0-3 Urine WBC (0 - 3 WBC/HPF) 0-3 Ur Squamous Epith Cells (NONE SEEN /HPF) 11-25 H Urine Bacteria (NONE SEEN /HPF) NONE SEEN Urine Mucus (NONE SEEN /LPF) TRACE Recent Impressions: ULTRASOUND - US BIOPHYS PROF 07/01 214 Report Impression - Status: SIGNED Entered: 07/01/2021 0303 IMPRESSION: 1. Biophysical profile score of 8 out of 8. 2. Viable intrauterine gestation in cephalic presentation. heart rate is 136 bpm. Impression By: Claudy Mena M.D. Results: labs reviewed, vital signs stable Treatment Prophylaxis Treatment Prophylaxis Bear status: none Diagnosis, Assessment Plan Diagnosis, Assessment Plan Problem List/A P: 1. Active labor at term 2. 39 weeks gestation of Assessment/Impression: spont.active labor>39 wks, slow progress of labor, reassuring status, membranes intact, normal FHR pattern, advanced cer dilation, reactive NST, no evidence of infection, no active bleeding Plan: admit to inpatient, augmentation of labor, delivery, transfer to [facility], surveillance, ultrasound for, DVT prophylaxis, labor precautions Consultation(s): Consultation performed: anesthesia, account consultant, tube and manifold builder, solar sales advisor Plan discussed with: patient, parent (MOTHER), nurse Comments: SHARON FALK MD PA at 0751 RPT #:[id number] END OF REPORT [facility] 2021-07-01 01:34:00 [facility] ([facility]) OB Medical Screening Exam REPORT#:[id number] REPORT STATUS: Signed DATE:07/01/21 TIME: 133 PATIENT: KIRAN ARZATE UNIT #: [id number] ROOM/BED: [place] [address] : [birth year] AGE: 30 SEX: F ATTEND: Gladys Watson MD ADM DT: AUTHOR: Gladsy Watson MD * ALL edits or amendments must be made on the electronic/computer document * Medical Screening Exam Provider Attestation Attestation: The QMP MSE reviewed. Provider at bedside at 0130 Comments: 30 y/o IUP 39 3/7 presents due to contractions. at 0336 RPT #:[id number] END OF REPORT [facility] 2021-07-01 01:34:00 [facility] ([facility]) LEANDER Evaluation Note REPORT#:[id number] REPORT STATUS: Signed DATE:07/01/21 TIME: 133 PATIENT: KIRAN ARZATE UNIT #: [id number] ROOM/BED: [place] [address] : [birth year] AGE: 30 SEX: F ATTEND: Allegra Cazares MD ADM AUTHOR: Gladys Watson MD * ALL edits or amendments must be made on the electronic/computer document * LEANDER History Chief complaint: uterine contractions HPI: 30 y/o IUP 39 3/7 presents due to contractions. She refers good movements and denies any gush of vaginal fluids, vaginal bleeding or recent exposure to COVID, fever or SOB. history: : 3 Term: 2 Living children: 2 Current : EDC: 07/05/21 EGA (weeks/days): 39 weeks Past medical history: denies PMH Past surgical history: denies PSH Social history: no alcohol use, no tobacco use, no drug use Allergies Coded Allergies: No Known Allergies (07/01/21) Review of Systems Additional notes: Constitutional: Denies: chills, fatigue, fever, generalized weakness, lethargy, malaise. Respiratory: Denies: productive cough (sputum), SOB. GI: Denies: abdominal pain, constipation, diarrhea, nausea, vomiting. : Refers: contractions Denies: urgency, vaginal bleeding. Neuro: Denies: headache Objective General VS: Last Documented: Result Date Time B/P Mean 90.0 07/01 0108 B/P 125/68 07/01 010 Temp 97.9 07/01 010 Pulse 92 07/01 010 Resp 16 07/01 0108 Vital Signs Date Temp Pulse Resp B/P B/P Mean Pulse Ox FiO2 07/01 97.9 92 16 125/68 90.0 PATIENT WEIGHT: Weight (lb): 235 Weight (oz): Weight (kg): 106.594 Physical Exam Additional comments: Gen: AAOx3 Lungs: normal respiratory effort Neuro: Exam: alert, oriented x3 Abdomen: gravid, soft Uterine activity: Monitor: toco Frequency (description): regular Frequency (minutes): COMM[employer] OFFICER: Normal exteral genitalia Cervical/ exam: Dilatation (cm): 4 Effacement (%): 80 station: -2 Presentation: VX Membrane status:IM FHR evaluation: FHR category: category I, had to subtle variable decelerations, discussed with Dr Cazares. Results Findings/Data: Laboratory Tests: 07/01 07/01 0150 0144 Hematology WBC (4.5 - 11.0 x10 3/uL) 8.3 RBC (3.54 - 5.02 x10 6/uL) 3.60 Hgb (11.0 - 15.0 g/dL) 11.3 Hct (33.0 - 45.0 %) 33.1 MCV (81.0 - 99.0 fL) 91.9 MCH (27.0 - 33.0 pg) 31.4 MCHC (33.0 - 37.0 g/dL) 34.1 RDW (11.5 - 14.5 %) 13.7 Plt Count (150 - 400 x10 3/uL) 212 MPV (7.0 - 9.0 fL) 10.7 H Neut % (Auto) (56.0 - 77.0 %) 70.4 Lymph % (Auto) (14.0 - 32.0 %) 20.4 [place] % (Auto) (4.8 - 9.0 %) 7.2 Eos % (Auto) (0.3 - 3.7 %) 1.3 Baso % (Auto) (0.0 - 2.0 %) 0.2 Neut # (Auto) (2.0 - 7.6 x10 3/uL) 5.87 Lymph # (Auto) (1.0 - 3.8 x10 3/uL) 1.70 [place] # (Auto) (0.1 - 0.8 x10 3/uL) 0.60 Eos # (Auto) (0.0 - 0.2 x10 3/uL) 0.11 Baso # (Auto) (0.0 - 0.2 x10 3/uL) 0.02 Abs Immat Gran (auto) (0.00 - 0.03 x10 3/uL) 0.04 H Add Manual Diff NO Immature Gran % (0.0 - 2.0 %) 0.5 Nucleated RBC % (0 - 0 %) 0.0 Nucleated RBCs # (Man) (0.0 - 0.1 x10 3/uL) 0.00 Urines Urine Color (YEL/STRAW) YELLOW Urine Appearance (CLEAR) SL CLOUDY Urine pH (5.0 - 7.0) 6.0 Ur Specific [place] (1.005 - 1.030) 1.021 Urine Protein (NEGATIVE) NEGATIVE Urine Glucose (UA) (NEGATIVE) NEGATIVE Urine Ketones (NEGATIVE) TRACE H Urine Blood (NEGATIVE) NEGATIVE Urine Nitrite (NEGATIVE) NEGATIVE Urine Bilirubin (NEGATIVE) NEGATIVE Urine Urobilinogen (0.2 - 1.0 mg/dL) 2.0 H Ur Leukocyte Esterase (NEGATIVE) NEGATIVE Urine RBC (0 - 3 RBC/HPF) 0-3 Urine WBC (0 - 3 WBC/HPF) 0-3 Ur Squamous Epith Cells (NONE SEEN /HPF) 11-25 H Urine Bacteria (NONE SEEN /HPF) NONE SEEN Urine Mucus (NONE SEEN /LPF) TRACE Recent Impressions: ULTRASOUND - US BIOPHYS PROF 07/01 214 Report Impression - Status: SIGNED Entered: 07/01/2021 0303 IMPRESSION: 1. Biophysical profile score of 8 out of 8. 2. Viable intrauterine gestation in cephalic presentation. heart rate is 136 bpm. Impression By: Claudy Mena M.D. Diagnosis, Assessment Plan Diagnosis, Assessment Plan Problem List/A P: 1. 39 weeks gestation of Free Text A P: initial exam 0130 Patient presents due to contractions will send UA and keep for labor check Re-evaluation 0345 Very slight cervical change will re-check in 2 hrs. BPP 8/8, DESTINY 7.7. Patient had 2 subtle variable decelerations. 0545 Patient made slighly more cervical change now 5 cm. 30 y/o IUP 39 3/7 presented due to contractions. Patient found to be in early labor. Discussed case with Dr. Cazares, she agreed on admission and will assume care of patient from this point on. Will admit patient to L D. Patient oriented on findings and plan. Assessment: reassuring status Impression: spontaneous early labor Plan: Admit to L D Plan discussed with: patient, nurse, Dr. Cazares at 0654 RPT #:[id number] END OF REPORT [facility] 2020-08-21 07:17:00 [facility] ([facility]) OB Disch REPORT#:[id number] REPORT STATUS: Signed DATE:08/21/20 TIME: 716 PATIENT: KIRAN ARZATE UNIT #: [id number] ROOM/BED: [place] [address] : [birth year] AGE: 29 SEX: F ATTEND: Sharon Falk MD ADM AUTHOR: Sharon Falk MD * ALL edits or amendments must be made on the electronic/computer document * Subjective Subjective Admission EGA: Weeks: 39 Days: 2 EGA at delivery (wks/days): 39 weeks (39.2) Status/day: post (day #2) Patient reports: Patient reports: Yes: normal lochia, pain management effective, tolerating po well, voiding well, voiding without pain, tolerating ambulation, flatus. No: complaints, bowel movement, nausea, vomiting, excessive bleeding, abdominal pain, perineal pain, difficulty nursing, headache, blurred vision. Nursing reports: Nursing reports: No: complaints. Comments: PATIENT IN ROOM C346 RESTING IN BED ON CELL PHONE TEXTING AND ON SOFA SLEEPER WAKING UP. IN BED WITH PATIENT AND SHE SAID SHE GOT GOOD SLEEP LAST NIGHT WITH IN NURSERY. PATIENT WITH NO COMPLAINTS OR PROBLEMS AND SHE IS READY AND AWARE FOR DC TO HOME TODAY. PLAN OF CARE DISCUSSED AND PATIENT VERBALIZED UNDERSTANDING AND ALL QUESTIONS ASKED AND ANSWERED TO THEIR SATISFACTION. Objective General VS: Vital Signs Date Temp Pulse Resp B/P B/P Mean Pulse Ox FiO2 08/20-08/21 98.2-98.4 71-95 15-18 91-129/48-67 67.0-86.0 98-99 Last Documented: Result Date Time B/P 115/61 08/21 0200 Temp 98.4 08/21 0200 Pulse 77 08/21 0200 Resp 16 08/21 0200 Pulse Ox 99 08/20 1900 B/P Mean 86.0 08/20 1658 PATIENT WEIGHT: Weight (lb): 215 Weight (oz): Weight (kg): 97.522 Physical Exam Breasts: Breasts: normal, filling, non-tender, soft, no erythema Flow: colostrum Nipples: normal, intact Feeding: breast and formula Nursing: fair Cardiac: normal rhythm, no clinically sig murmur, no gallops, no rubs Lungs: clear to auscultation, no rales, no rhonchi, unlabored breathing Neuro: Exam: alert, oriented x3, normal speech, normal gait, CNII-XII grossly intact , reflexes equal bilat DTR's (lower extr): normal 1-2+ Abdomen: post gravid, soft, no abnormal tenderness, no guarding, no rebound tenderness, normoactive bowel sounds Incision site: none Uterus: involution appropriate, non-tender Fundus: firm, below the umbilicus, non-tender Lochia: normal Episiotomy or laceration: well approximated edges, no inflammation, no drainage noted Vulva/Perineum: normal CVA tenderness: none Lower extremities: Edema: trace Nadeem's sign: negative Calf tenderness: negative Results Findings/Data: Laboratory Tests: 08/20 08/19 08/19 08/19 08/19 0430 1845 1705 1517 1314 Blood Gas Cord VBG pH (7.25 - 7.45) 7.36 Cord VBG pCO2 (27 - 49 mmHg) 43 Cord VBG pO2 (17 - 41 mmHg) 35 Cord VBG HCO3 (12 - 28 MMOL/L) 24.8 Cord VBG Base Excess (-8.0 - 0.00 mmol/L) -0.6 Cord VBG O2 Sat (%) 65 Temperature (F) 97.8 Chemistry POC Glucose (70 - 110 MG/DL) 61 L 83 76 Hematology WBC (4.5 - 11.0 x10 3/uL) 9.7 RBC (3.54 - 5.02 x10 6/uL) 3.70 Hgb (11.0 - 15.0 g/dL) 11.3 Hct (33.0 - 45.0 %) 34.2 MCV (81.0 - 99.0 fL) 92.4 MCH (27.0 - 33.0 pg) 30.5 MCHC (33.0 - 37.0 g/dL) 33.0 RDW (11.5 - 14.5 %) 13.7 Plt Count (150 - 400 x10 3/uL) 197 MPV (7.0 - 9.0 fL) 11.6 H Neut % (Auto) (56.0 - 77.0 %) 74.7 Lymph % (Auto) (14.0 - 32.0 %) 18.1 [place] % (Auto) (4.8 - 9.0 %) 5.5 Eos % (Auto) (0.3 - 3.7 %) 1.1 Baso % (Auto) (0.0 - 2.0 %) 0.2 Neut # (Auto) (2.0 - 7.6 x10 3/uL) 7.22 Lymph # (Auto) (1.0 - 3.8 x10 3/uL) 1.75 [place] # (Auto) (0.1 - 0.8 x10 3/uL) 0.53 Eos # (Auto) (0.0 - 0.2 x10 3/uL) 0.11 Baso # (Auto) (0.0 - 0.2 x10 3/uL) 0.02 Abs Immat Gran (auto) (0.00 - 0.03 0.04 H x10 3/uL) Add Manual Diff NO Immature Gran % (0.0 - 2.0 %) 0.4 Nucleated RBC % (0 - 0 %) 0.0 Nucleated RBCs # (Man) (0.0 - 0.1 0.00 x10 3/uL) 08/19 08/19 08/19 1300 1145 1145 Chemistry Hemoglobin A1c (4.8 - 6.0 %A1C) 5.2 Hematology WBC (4.5 - 11.0 x10 3/uL) 9.4 RBC (3.54 - 5.02 x10 6/uL) 3.84 Hgb (11.0 - 15.0 g/dL) 11.6 Hct (33.0 - 45.0 %) 35.0 MCV (81.0 - 99.0 fL) 91.1 MCH (27.0 - 33.0 pg) 30.2 MCHC (33.0 - 37.0 g/dL) 33.1 RDW (11.5 - 14.5 %) 13.8 Plt Count (150 - 400 x10 3/uL) 217 MPV (7.0 - 9.0 fL) 10.5 H Neut % (Auto) (56.0 - 77.0 %) 72.9 Lymph % (Auto) (14.0 - 32.0 %) 18.2 [place] % (Auto) (4.8 - 9.0 %) 7.0 Eos % (Auto) (0.3 - 3.7 %) 1.2 Baso % (Auto) (0.0 - 2.0 %) 0.1 Neut # (Auto) (2.0 - 7.6 x10 3/uL) 6.87 Lymph # (Auto) (1.0 - 3.8 x10 3/uL) 1.72 [place] # (Auto) (0.1 - 0.8 x10 3/uL) 0.66 Eos # (Auto) (0.0 - 0.2 x10 3/uL) 0.11 Baso # (Auto) (0.0 - 0.2 x10 3/uL) 0.01 Abs Immat Gran (auto) (0.00 - 0.03 x10 3/uL) 0.06 H Add Manual Diff NO Immature Gran % (0.0 - 2.0 %) 0.6 Nucleated RBC % (0 - 0 %) 0.0 Nucleated RBCs # (Man) (0.0 - 0.1 x10 3/uL) 0.00 Other Body Source Membrane Rupture (NEGATIVE) NEGATIVE Serology RPR (NONREACTIVE) NONREACTIVE Hep Bs Antigen (NonReactive INDEX) NON REACTIVE HIV 1 2 Antibody (NONREACTIVE INDEX) NONREACTIVE SARS-CoV-2 Ag (Rapid) (Negative) Negative Results: no new labs, labs reviewed, vital signs stable Discharge Summary General Problem List/A P: 1. Active labor at term 2. Gestational diabetes mellitus (GDM) 3. 39 weeks gestation of 4. Spontaneous vaginal delivery Free Text A P: AVSS No Complaints Abd Non-tender Fundus Firm Minimal Lochia Routine PPD 2 See Orders Plan for Discharge Home Today Follow Up in 6 weeks Date of admission: Date of admission: 08/19/20 Admission diagnosis: labor-spontaneous Hospital course: spontaneous labor, augmentation of labor, spontaneous vag delivery, epidural anesthesia, nml postop/postpart care Procedures: epidural anesthesia, spontaneous vaginal deliv Discharge condition: stable, PATIENT SAID THIS DELIVERY EXPERIENCE WAS SHOULD MUCH BETTER THAN PRIOR AND SHE IS VERY HAPPY AND SAID tHANK yOU TO ME. RJT. Discharge to: Home/Self Care Discharge diagnosis: full-term uncomp delivery Discharge management: greater than 30 mins Time spent: Time spent with patient (minutes): 35 >50% spent on counseling/coordination of care: yes Baby A: Vaginal delivery: spontaneous status: live born Gender: female 1 minute: 8 5 minutes: 9 Anomalies: LONG UMBILICAL CORD NOTED. Nursing data: The data set between the solid lines has been imported from nursing documentation. Any exceptions have been noted below under Provider comments. Delivery date infant A: 08/19/20 Delivery time A: 1728 Birthweight (gm) infant A: 3630 Feeding preference: Gender A: Female 1 minute infant A: 5 minutes infant A: 10 minutes infant A: Provider comments on imported nursing data: [] Plan: routine care, discharge today Vaginal packing at delivery: No Discharge Instructions Instructions: routine instr sheet given, instr and warnings rev'd, specific instr as noted Diet: Regular Activity: As Tolerated, Bedrest, Light Duty, No Bending, No Driving, No Shaw for 6 Wks Additional discharge routines: Attending Follow-Up Weight Monitoring: Weekly Immunizations given: Tdap (OFFER), flu (OFFER) Contraception discussed: abstinence for 4-6 weeks, will discuss at PP visit Discharge meds: Start taking the following new medications: FERROUS SULFATE (FEOSOL) 325 MG TAB 325 MILLIGRAM ORAL DAILY. Qty = 30 Refills = 1 HYDROcodone/APAP (NORCO 5/325) 1 TAB TAB 1 TABLET ORAL EVERY 6 HOURS NEEDED. as needed for PAIN SCALE 6-10 Qty = 30 No Refills IBUPROFEN (MOTRIN) 800 MG TAB 800 MILLIGRAM ORAL EVERY 8 HR NEEDED. as needed for PAIN SCALE 1-5 Qty = 30 Refills = 1 DOCUSATE SODIUM (COLACE) 100 MG CAP 100 MILLIGRAM ORAL TWICE DAILY. as needed for CONSTIPATION Qty = 30 Refills = 1 Prescriptions: e-prescribe Consultation(s): Consultation performed: anesthesia, account consultant, tube and manifold builder, solar sales advisor Add'l Follow-up Appointments Attending Physician: Attending Physician: Sharon Falk MD Attending physician follow up timeframe: In 4-5 weeks at 0726 RPT #:[id number] END OF REPORT [facility] 2020-08-20 15:15:00 [facility] ([facility]) OB Postpart Progr Note REPORT#:[id number] REPORT STATUS: Signed DATE:08/20/20 TIME: 1515 PATIENT: KIRAN ARZATE UNIT #: [id number] ROOM/BED: [place] [address] : 91 AGE: 29 SEX: F ATTEND: Sharon Falk MD ADM AUTHOR: Sharon Falk MD * ALL edits or amendments must be made on the electronic/computer document * Subjective Subjective Admission EGA: Weeks: 39 Days: 2 EGA at delivery (wks/days): 39 weeks (39.2) Status/Day: post (day #1) Patient reports: Patient reports: Yes no complaints, Yes normal lochia, Yes pain management effective, Yes tolerating po well, Yes voiding well, Yes voiding without pain, Yes tolerating ambulation, Yes flatus, No bowel movement, No nausea, No vomiting, No excessive bleeding, No abdominal pain, No perineal pain, No difficulty nursing, No headache, No blurred vision Nursing reports: Nursing reports: No complaints Comments: PATIENT IN ROOM C346 ON 3 WEST AND IN BED HOLDING . RN ON ROUNDS WITH ME. PATIENT WITH NO COMPLAINTS OR PROBLEMS AND PLAN OF CARE DISCUSSED AND GIVEN. PATIENT VERBALIZED UNDERSTANDING. Objective Nursing Documentation Review Nursing Data: The data set between the solid lines has been imported from nursing documentation. Any exceptions have been noted below under Provider comments. Feeding preference: Provider comments on imported nursing data: [] General VS: Vital Signs: Date Time Temp Pulse Resp B/P B/P Pulse O2 O2 Flow FiO2 Mean Ox Delivery Rate 08/20 1142 83.0 08/20 1142 98.2 73 15 116/67 98 08/20 08 74.0 08/20 0826 71 102/55 08/20 0824 67.0 08/20 0824 77 91/48 08/20 0400 98.3 83 17 106/68 98 /1999 98.3 87 17 106/68 99 08/19 1932 84 100 08/19 1928 78.0 08/19 1928 79 111/58 08/19 1927 80 100 08/19 1922 78 100 08/19 1917 76 99 08/19 1915 81.0 08/19 1915 74 16 114/59 08/19 1912 85 98 08/19 1907 82 99 08/19 1902 76 98 08/19 1858 85.0 08/19 1858 90 124/59 06 1857 91 98 / 1852 81 98 08/19 1847 75 98 / 1842 85.0 08/19 1842 75 114/67 99 08/19 1837 77 98 08/19 1832 82 98 08/19 1828 78.0 08/19 1828 71 110/54 08/19 1827 74 98 08/19 1822 79 98 08/19 1817 76 99 08/19 1812 89.0 08/19 1812 78 16 136/63 99 08/19 1807 89 99 08/19 1802 77 99 08/19 1759 87.0 08/19 1759 76 123/62 08/19 1757 82 98 08/19 1752 80 100 08/19 1747 74 99 08/19 1743 88.0 08/19 1743 71 121/66 08/19 1742 77 97 08/19 1737 75 98 08/19 1732 85 99 08/19 1730 102.0 08/19 1730 97.8 82 16 156/71 08/19 1727 101 92 08/19 1722 77 100 08/19 1720 77 91 08/19 1717 68 100 08/19 1713 84.0 08/19 1713 97.8 76 16 116/67 08/19 1712 77 100 08/19 1707 71 100 08/19 1702 68 100 08/19 1657 63.0 08/19 1657 69 88/51 100 08/19 1652 73 100 08/19 1647 73 100 08/19 1642 66.0 08/19 1642 74 89/53 100 08/19 1637 72 100 08/19 1632 76 100 08/19 1628 74.0 08/19 1628 72 97/55 08/19 1627 74 100 08/19 1622 75 100 08/19 1617 77 99 08/19 1614 99.0 08/19 1614 80 130/80 08/19 1612 70 100 08/19 1607 96 100 08/19 1602 97 99 08/19 1600 79.0 08/19 1600 81 126/55 08/19 1557 75 100 08/19 1552 83 95 08/19 1547 73 98 08/19 1543 75.0 08/19 1543 75 105/58 08/19 1542 74 98 08/19 1537 103 100 08/19 1532 81 99 08/19 1528 79.0 08/19 1528 76 108/59 08/19 1527 81 96 08/19 1522 84 100 08/19 1517 101 100 PATIENT WEIGHT: Weight (lb): 215 Weight (oz): Weight (kg): 97.522 Nutrition assessment: The data set between the solid lines has been imported from the dietitian's assessment. Any exceptions have been noted under Provider comments. BMI Calculated: 31.75 Nutrition related diagnosis: Nutrition diagnosis details: Nutrition problem: Nutrition etiology: Nutrition signs and symptoms: Nutrition prescription: Dietitian name: Assessment completed: Provider comments on imported dietitian assessment: Physical Exam Breasts: Breasts: filling, non-tender, soft Flow: colostrum Nipples: intact Feeding: breast or formula Cardiac: normal sinus rhythm, no clinically sig murmur, no gallops, no rubs Lungs: clear to auscultation, no rales, no rhonchi Neuro: Exam: alert, oriented x3, normal speech, normal gait, CNII-XII grossly intact , reflexes equal bilat DTR's (lower extr) normal 1-2+ Abdomen: soft, no abnormal tenderness, no guarding, no rebound tenderness, normoactive bowel sounds Incision site: none Uterus: involution appropriate, non-tender Fundus: firm, below the umbilicus, non-tender Lochia: normal Lacerations: Perineal laceration(s): 1st Degree High vaginal laceration: no Episiotomy or laceration: well approximated edges, no inflammation, no drainage noted Vulva/Perineum: normal CVA tenderness: none Lower extremities: Edema: trace Nadeem's sign: negative Calf tenderness: negative Result Findings/Data: Laboratory Tests: 08/20 08/19 08/19 0430 1845 1705 Blood Gas Cord VBG pH (7.25 - 7.45) 7.36 Cord VBG pCO2 (27 - 49 mmHg) 43 Cord VBG pO2 (17 - 41 mmHg) 35 Cord VBG HCO3 (12 - 28 MMOL/L) 24.8 Cord VBG Base Excess (-8.0 - 0.00 mmol/L) -0.6 Cord VBG O2 Sat (%) 65 Temperature (F) 97.8 Chemistry POC Glucose (70 - 110 MG/DL) 61 L Hematology WBC (4.5 - 11.0 x10 3/uL) 9.7 RBC (3.54 - 5.02 x10 6/uL) 3.70 Hgb (11.0 - 15.0 g/dL) 11.3 Hct (33.0 - 45.0 %) 34.2 MCV (81.0 - 99.0 fL) 92.4 MCH (27.0 - 33.0 pg) 30.5 MCHC (33.0 - 37.0 g/dL) 33.0 RDW (11.5 - 14.5 %) 13.7 Plt Count (150 - 400 x10 3/uL) 197 MPV (7.0 - 9.0 fL) 11.6 H Neut % (Auto) (56.0 - 77.0 %) 74.7 Lymph % (Auto) (14.0 - 32.0 %) 18.1 [place] % (Auto) (4.8 - 9.0 %) 5.5 Eos % (Auto) (0.3 - 3.7 %) 1.1 Baso % (Auto) (0.0 - 2.0 %) 0.2 Neut # (Auto) (2.0 - 7.6 x10 3/uL) 7.22 Lymph # (Auto) (1.0 - 3.8 x10 3/uL) 1.75 [place] # (Auto) (0.1 - 0.8 x10 3/uL) 0.53 Eos # (Auto) (0.0 - 0.2 x10 3/uL) 0.11 Baso # (Auto) (0.0 - 0.2 x10 3/uL) 0.02 Abs Immat Gran (auto) (0.00 - 0.03 x10 3/uL) 0.04 H Add Manual Diff NO Immature Gran % (0.0 - 2.0 %) 0.4 Nucleated RBC % (0 - 0 %) 0.0 Nucleated RBCs # (Man) (0.0 - 0.1 x10 3/uL) 0.00 Results: labs reviewed, vitl signs stable Treatment Prophylaxis Treatment Prophylaxis Bear status: none Diagnosis, Assessment Plan Diagnosis, Assessment Plan Problem List/A P: 1. Active labor at term 2. Gestational diabetes mellitus (GDM) 3. 39 weeks gestation of 4. Spontaneous vaginal delivery Free text A P: AVSS No Complaints Abd Non-tender Fundus Firm Minimal Lochia Routine PPD 1 See Orders Assessment: nml progress, breast feeding w/o diff Plan: routine care, discharge tomorrow Consultation(s): Consultation performed: anesthesia, account consultant, tube and manifold builder, solar sales advisor Plan discussed with: patient, nurse Comments: SHARON FALK MD PA at 1518 RPT #:[id number] END OF REPORT [facility] 2020-08-19 17:42:00 [facility] ([facility]) OB Delivery Note REPORT#:[id number] REPORT STATUS: Signed DATE:08/19/20 TIME: 1742 PATIENT: KIRAN ARZATE UNIT #: [id number] ROOM/BED: [place] [address] : [birth year] AGE: 29 SEX: F ATTEND: Sharon Falk MD ADM AUTHOR: Sharon Falk MD * ALL edits or amendments must be made on the electronic/computer document * OB Delivery Nursing Documentation Review Nursing data: The data set between the solid lines has been imported from nursing documentation. Any exceptions have been noted below under Provider comments. _ ROM date: 08/19/20 ROM time: 15:31 Membranes rupture method: AROM Amniotic fluid color: Clear Amniotic fluid amount: SMALL Steroids prior to arrival: N/A Antibiotic prophylaxis given: N/A [place] evaluation at delivery: PEDI liquor merchant date infant A: 08/19/2020 Delivery time A: 17:28 Birthweight (gm) A: Weight (lb) infant A: Weight (oz) A: Gender A: FEMALE 1 minute A: 8 5 minutes infant A: 9 10 minutes A: Cord pH obtained A: Vacuum time A: Vacuum # pulls infant A: Vacuum # popoffs infant A: QBL at delivery: 173ml __ Provider comments on imported nursing data: [] Pre-delivery GBS status: GBS status: negative Prophylaxis administered: none evaluation at delivery: NRP certified personnel Admission EGA: Weeks: 39 Days: 2 EGA at delivery (wks/days): 39 weeks (39.2) Steroids Prior to Delivery Steroids prior to delivery: N/A Baby A Information Baby A information Delivery date: 08/19/20 Delivery time: 1728 status: live born Wt of baby: not yet available Gender: female 1 minute: 8 5 minutes: 9 Presentation: vertex (OA) Anomalies: LONG UMBILICAL CORD NOTED. ABG details Baby A Cord blood gases: collected Nuchal cord Baby A Nuchal cord: no Anomalies: LONG CORD Additional comments: CORD GASES PENDING AT 17:46 Vaginal Delivery Vaginal delivery: Labor: spontaneous Medications/Devices used: oxytocin (AND AROM) Vaginal delivery: spontaneous Amniotic fluid: clear Anesthesia type: epidural anesthesia Episiotomy: none Episiotomy repair: not applicable Laceration repair: 2-0 suture (VICRYL 1st degree) Vaginal hematoma: N/A Placenta: spontaneous, intact, anomalies (LONG CORD), sent to pathology Post delivery meds used: oxytocin Count: correct, vag exam neg for sponges Vaginal packing: No Mother's condition: mother stable 's condition: infant stable in room Lacerations: Perineal laceration(s): 1st Degree High vaginal laceration: no Extraction details OVD performed: no Maneuver(s): Action: Steve maneuver Staff present: RN's Shoulder dystocia present: no Fundal pressure applied: no Note dictated: No Blood Loss/Details Blood loss at delivery: <1000 ml, no more than expected QBL at delivery (ml's): 173 at 1748 RPT #:[id number] END OF REPORT [facility] 2020-08-19 15:27:00 [facility]) OB Admission / H P REPORT#:[id number] REPORT STATUS: Signed DATE:08/19/20 TIME: 1527 PATIENT: KIRAN ARZATE UNIT #: [id number] ROOM/BED: [facility] : 91 AGE: 29 SEX: F ATTEND: Sharon Falk MD ADM AUTHOR: Sharon Falk MD * ALL edits or amendments must be made on the electronic/computer document * OB History Nursing Documentation Review Nursing data: The data set between the solid lines has been imported from nursing documentation. Any exceptions have been noted below under Provider comments. Current data Steroids prior to arrival: ROM date: 08/19/2020 ROM time: 15:30 EDC date: 08/24/20 Prior history : 3 Para: 1 Term: 1 : 0 Abortions spontaneous: 1 Abortions induced: 0 Living children: 1 Ectopic: 0 Stillbirths: 0 Live births: 1 deaths: 0 Number of previous C/S: 0 Reported maternal labs/data Blood type: Rh type: Rubella: Hepatitis B: HIV exposure test: VDRL: Group B beta strep: Rho(D) immune globulin this preg: Monitor mode - UA: Feeding preference: Provider comments on imported nursing data: [] Chief complaint: uterine contractions, discomfort history: : 3 Term: 1 : 0 Abortus: 1 Living children: 1 Complications (prev preg): see UPDATED RECORD in CHART. Previous : none Current : Admission EGA (weeks) 39 Admission EGA (days) 2 Labs: GBS: negative Procedures: non stress test Social history: no alcohol use, no tobacco use, no drug use Medications: Home Medications: PNV/FE FUM/FA ( MULTIVITAMIN) 1 TAB PO DAILY IRON 18 MG PO DAILY Allergies Coded Allergies: No Known Allergies (08/19/20) Review of Systems Constitutional: Denies: chills, fatigue, fever, generalized weakness, lethargy, malaise, recent wt loss, other. All systems rev neg: except as marked Objective General VS: Last Documented: Result Date Time B/P Mean 77.0 08/19 1457 Pulse Ox 98 08/19 1457 B/P 111/58 08/19 1457 Pulse 77 08/19 1457 Temp 97.8 08/19 1204 Resp 16 08/19 1204 Vital Signs Date Temp Pulse Resp B/P B/P Mean Pulse Ox FiO2 08/19 97.8 71-100 16 111-142/56-73 77.0-92.0 96-100 PATIENT WEIGHT: Weight (lb): 215 Weight (oz): Weight (kg): 97.522 Physical Exam HEENT: normocephalic w/o injury, pupils equal Cardiac: regular rate and rhythm, no clinically sig murmur, no gallops, no rubs Lungs: clear to auscultation, no rales, no rhonchi, unlabored breathing Breasts: WNL Neuro: Exam: alert, oriented x3, normal speech, normal gait, CNII-XII grossly intact , reflexes equal bilat DTR's (lower extr): normal 1-2+ Abdomen: gravid, soft, no abnormal tenderness, no guarding, no rebound tenderness, normoactive bowel sounds Musculoskeletal: normal inspection Genitourinary: bear, no bladder distention, no flank pain Uterine activity: Monitor: toco Frequency (description): irregular Frequency (minutes): 6 Duration (seconds): 35 Intensity: moderate Resting tone: relaxed Tachysystole: No Pelvic exam: Pelvis clinically adequate: yes, inlet appears appropriate, pubic bone config appropr, no midpelvic contraction Vulvar lesions: none, no evidence herpetic les, no evidence of other STD Vagina: normal, non-septated, w/o apparent lesions Exam: soft, non-tender, approp size for gest age Cervical/ exam: Dilatation (cm): 7 Effacement (%): 100 Est wt (gms): 3300 Suspected macrosomia: No Suspected > 5000 grams: No station: 0 presentation: cephalic Gaspar Score Gaspar Score Response Value Dilation: 5 cm (3) 3 Effacement: 80-100% (3) 3 Station: -1, 0 (2) 2 Position: anterior (2) 2 Consistency: soft (2) 2 Total 12 Membranes: Membranes: Intact, AROM ROM date: 08/19/20 ROM time: 1530 Amniotic fluid: clear Odor: none Amount: small Lower extremities: Edema: trace Nadeem's sign: negative Calf tenderness: negative Baby A: Baby A baseline: 140 bpm Baby A variability: moderate 6-25 bpm Baby A accelerations: 15 X 15 Baby A decelerations: none Baby A FHR category: category 1 Result Findings/Data: Laboratory Tests: 08/19 08/19 08/19 08/19 1517 1314 1300 1145 Chemistry POC Glucose (70 - 110 MG/DL) 83 76 Other Body Source Membrane Rupture (NEGATIVE) NEGATIVE Serology SARS-CoV-2 Ag (Rapid) (Negative) Negative 08/19 1145 Chemistry Hemoglobin A1c (4.8 - 6.0 %A1C) 5.2 Hematology WBC (4.5 - 11.0 x10 3/uL) 9.4 RBC (3.54 - 5.02 x10 6/uL) 3.84 Hgb (11.0 - 15.0 g/dL) 11.6 Hct (33.0 - 45.0 %) 35.0 MCV (81.0 - 99.0 fL) 91.1 MCH (27.0 - 33.0 pg) 30.2 MCHC (33.0 - 37.0 g/dL) 33.1 RDW (11.5 - 14.5 %) 13.8 Plt Count (150 - 400 x10 3/uL) 217 MPV (7.0 - 9.0 fL) 10.5 H Neut % (Auto) (56.0 - 77.0 %) 72.9 Lymph % (Auto) (14.0 - 32.0 %) 18.2 [place] % (Auto) (4.8 - 9.0 %) 7.0 Eos % (Auto) (0.3 - 3.7 %) 1.2 Baso % (Auto) (0.0 - 2.0 %) 0.1 Neut # (Auto) (2.0 - 7.6 x10 3/uL) 6.87 Lymph # (Auto) (1.0 - 3.8 x10 3/uL) 1.72 [place]rien # (Auto) (0.1 - 0.8 x10 3/uL) 0.66 Eos # (Auto) (0.0 - 0.2 x10 3/uL) 0.11 Baso # (Auto) (0.0 - 0.2 x10 3/uL) 0.01 Abs Immat Gran (auto) (0.00 - 0.03 x10 3/uL) 0.06 H Add Manual Diff NO Immature Gran % (0.0 - 2.0 %) 0.6 Nucleated RBC % (0 - 0 %) 0.0 Nucleated RBCs # (Man) (0.0 - 0.1 x10 3/uL) 0.00 Serology Hep Bs Antigen (NonReactive INDEX) NON REACTIVE HIV 1 2 Antibody (NONREACTIVE INDEX) NONREACTIVE Results: labs reviewed, vital signs stable ROM test: negative Treatment Prophylaxis Treatment Prophylaxis Bear status: day 1 Diagnosis, Assessment Plan Diagnosis, Assessment Plan Problem List/A P: 1. Active labor at term 2. Gestational diabetes mellitus (GDM) 3. 39 weeks gestation of Assessment/Impression: spont.active labor>39 wks, normal progress of labor, reassuring status, membranes intact (???), normal FHR pattern, reactive NST, no evidence of infection, no active bleeding, PATIENT NEVER DID 3 HOUR GTT (ORDERS GIVEN JUN 2020). Plan: admit to inpatient, augmentation of labor, delivery, transfer to [facility], surveillance, DVT prophylaxis Consultation(s): Consultation performed: anesthesia, account consultant, tube and manifold builder, solar sales advisor Plan discussed with: patient, spouse/partner, nurse Comments: SHARON FALK MD PA at 1544 RPT #:[id number] END OF REPORT [facility]
[2024-10-11] MEDS ORDERED: PANTOPRAZOLE 40MG TABLET PO ONE (03:21)
[2024-10-11] MEDS ORDERED: FAMOTIDINE 20 MG TAB ONE (03:21)
[2024-10-11] MEDS ORDERED: KETOROLAC 30 MG/ML INJ ONE ×2 (03:21→14:12)
[2024-10-11] MEDS ORDERED: ONDANSETRON 4 MG/2 ML VIAL ONE ×2 (03:21→14:12)
[2024-10-11] MEDS ORDERED: MAGNES/ALUMIN/SIMET 30ML UCUP ONE (03:21)
[2024-10-11 03:22] LABS: Absolute Eosinophils 0.2 K/uL (0-0.5); Absolute Lymphocytes (CBC) 1.9 K/uL (0.7-4.9); Absolute Monocytes 0.7 K/uL (0.1-1.3); Absolute Neutrophil 7.9 K/uL (1.8-8.0); Basophils % 0.2 % (0-1.3); Eosinophils % 1.7 % (0-4.4); Hematocrit 38.3 % (36.0-45.0); Lymphocytes % 18.1 % (15.3-44.8); MCH 30.4 pg (27.0-35.0); MCHC 33.9 g/dL (32.0-36.0); MCV 89.6 fL (80-100); MPV 8.3 fL (7.6-11.3); Monocytes % 6.3 % (3.3-12.3); Neutrophils % 73.7 % (41.7-73.7); Platelets 276 thou/uL (152-406); RBC Red Blood Cell Count 4.28 M/uL (3.86-4.86); Red Cell Distribution Width 14.1 % (12.1-15.2)
[2024-10-11] MEDS ORDERED: LIDOCAINE VISCOUS 2% 10ML ORAL SOLN ONE (03:22)
[2024-10-11] MEDS ORDERED: MORPHINE 4 MG/ML SYR ONE ×3 (03:22→10:30)
[2024-10-11 03:45] LABS: ALT/SGPT 26 U/L (13-56); AST/SGOT 16 U/L (15-37); Albumin 3.7 g/dL (3.4-5.0); Albumin/Globulin Ratio 1.1 (1.1-1.8); Alkaline Phosphatase 115 U/L (45-117); Anion Gap 9.6 mEq/L (5.0-15.0); BUN Blood Urea Nitrogen 16 mg/dL (7-18); Bicarbonate 24 mEq/L (21-32); Bilirubin Total 0.3 mg/dL (0.2-1.0); Globulin 3.4 g/dL (2.3-3.5); Glomerular Filtration Rate 97 ml/min (=/>90); Glucose Level 135 mg/dL (74-106); Potassium 3.6 mEq/L (3.5-5.1); Protein, Total 7.1 g/dL (6.4-8.2); Sodium Level 137 mEq/L (136-145)
[2024-10-11 03:48] LABS: Bilirubin Direct < 0.2 mg/dL (0-0.2); Bilirubin Indirect, Calculated 0.1 mg/dL (0.2-0.8); Troponin High Sensitivity < 3.0 pg/mL (<58.9)
--- NOTE | 2024-10-11 04:57 | RAD REPORT ---
EXAM DESCRIPTION: Abdomen Exam Limited RadLex: US ABDOMEN LIMITED CLINICAL HISTORY: 34 years Female, ABD PAIN COMPARISON: None. FINDINGS: History File Machine Operator color Doppler images were obtained to assess the gallbladder. Gallbladder is mildly dis tended and contains shadowing gallstones and layering sludge. Gallbladder wall is not thickened, measuring 0.2 cm. No pericholecystic fluid collections. Reportedly negative sonographic Correia sign. Common duct is not dilated, measuring 0.5 cm. Visualized portions of the liver demonstrate increased echogenicity, compatible with steatosis. IMPRESSION: 1. Cholelithiasis and gallbladder sludge without additional sonographic evidence of acute cholecyst itis. 2. Hepatic steatosis. Electronically signed by: Mikki Kingston MD 10/11/2024 04:54 AM [facility] Due to temporary technical issues with the PACS/[employer] scribe reporting system, reports are being signed by the in-house radiologist without review as a courtesy to ensure prompt reporting the interpreting radiologist is fully responsible for the content of the report. Transcribed Date/Time: 10/11/2024 4:57 AM
--- NOTE | 2024-10-11 05:10 | RAD REPORT ---
EXAM: XR Chest 1 View AP HISTORY: heartburn COMPARISON: None TECHNIQUE: Chest 1 View AP FINDINGS: Trachea midline. Heart size and pulmonary vessels within normal limits. Lungs clear without evidence of consolidation, mass, or significant pulmonary edema. No significant pleural effusion or pneumothorax. No free air in upper abdomen. Lower thoracic spine shows minimal leftward convex curvature. This may be positional or represent lev oscoliosis. IMPRESSION: Unremarkable chest radiograph. Electronically signed by: Pacheco Parsons MD 10/11/2024 04:15 AM [facility] Due to temporary technical issues with the PACS/[employer] reporting system, reports are being eitan d by the in-house radiologist without review as a courtesy to ensure prompt reporting the interpreting radiologist is fully responsible for the content of the report. Transcribed Date/Time: 10/11/2024 5:10 AM
[2024-10-11] MEDS ORDERED: METOCLOPRAMIDE 10 MG/2mL INJ ONE (05:59)
--- NOTE | 2024-10-11 06:29 | RAD REPORT ---
CLINICAL HISTORY: Chest pain. COMPARISON: US Abdomen 10/11/2024 and XR Chest 10/11/2024. 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 MIPS reconstructions we re generated. This exam was performed according to our departmental dose-optimization program, which includes autom ated exposure control, adjustment of the mA and/or kV according to patient size and/or use of iterative reconstruction technique. FINDINGS: Vascular: Thoracic aorta is normal in course and caliber without aneurysm or dissection. Pulmonary ar teries are adequately opacified without acute or chronic filling defects. Abdominal aorta is normal in course and caliber without aneurysm. Pelvic arteries are patent without aneurysm or occlusion. Chest: The heart is normal in size. There is no pericardial effusion. Intrathoracic lymph nodes are n ot enlarged. There is no pleural effusion, pleural thickening or pneumothorax. Central airways are patent. Lungs a re clear with no consolidation, mass or interstitial lung disease. Abdomen: The liver is normal in appearance. There is no biliary dilatation. Gallbladder contains mult iple small gallstones. The pancreas and spleen are normal in appearance. The adrenal glands and kidneys are unremarkable. There is no free air. There is no retroperitoneal adenopathy.There is a tiny fat-containing umbilical hernia. Pelvis: There is no bowel obstruction. Urinary bladder is unremarkable. There is no free fluid. Appen tremaine is normal. Skeleton: There are no acute osseous findings. No suspicious bony lesions. IMPRESSION: No aortic dissection or aneurysm. No pulmonary embolus. No definite acute inflammatory process. Cholelithiasis. 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 Transcribed Date/Time: 10/11/2024 6:29 AM
--- NOTE | 2024-10-11 07:04 | EDPHYS ---
Physician Documentation [facility] Name: Jumana Arzate Age: 34 yrs Sex: Female : 1990 Arrival Date: 10/11/2024 Time: 02:45 Bed 6 Private MD: ED Physician Carlos Spears HPI: 10/11 03:01 This 34 yrs old Female presents to ER via EMS with complaints of Epigastric sp4 Pain. 05:14 34-year-old female with no significant past medical history presents with acute sp4 moderate to severe lower chest upper abdominal pain mostly on the right side. Associated with reported heartburn. Multiple Tums did not help. EMS reports normal EKG. 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 - Infectious Disease History:: Denies. - Social history:: Smoking status: Patient reports the use of cigarette tobacco products, smokes one-half pack cigarettes per day, Patient uses alcohol, occasionally. Patient/guardian denies using street drugs. - Family history:: not pertinent. ROS: 05:14 Constitutional: Negative for fever, chills, and weight loss, positive for sp4 epigastric pain, positive for right upper abdominal pain, positive for lower chest pain, positive for heartburn positive nausea 05:14 All other systems are negative, Exam: 05:12 Constitutional: This is a well developed, well nourished patient who is awake, alert, sp4 and in no acute distress. Head/Face: Normocephalic, atraumatic. Eyes: Pupils equal round and reactive to light, extra-ocular motions intact. Lids and lashes normal. Conjunctiva and sclera are not injected. Cornea within normal limits. Periorbital areas with no swelling, redness, or edema. ENT: Nares patent. No nasal discharge, no septal abnormalities noted. Tympanic membranes are normal and external auditory canals are clear. Oropharynx with no redness, swelling, or masses, exudates, or evidence of obstruction, uvula midline. Mucous membranes moist. Neck: Trachea midline, no thyromegaly or masses palpated, and no cervical lymphadenopathy. Supple, full range of motion without nuchal rigidity, or vertebral point tenderness. Chest/axilla: Normal chest wall appearance and motion. Nontender with no deformity. No lesions are appreciated. Cardiovascular: Regular rate and rhythm with a normal S1 and S2. No gallops, murmurs, or rubs. Normal PMI, no JVD. No pulse deficits. Respiratory: Lungs have equal breath sounds bilaterally, clear to auscultation and percussion. No rales, rhonchi or wheezes noted. No increased work of breathing, no retractions or nasal flaring. Abdomen/GI: Soft, with normal bowel sounds. No distension or tympany. No guarding or rebound. Positive for right upper abdominal pain, positive epigastric abdominal tenderness, positive right upper tenderness, positive diffuse abdominal discomfort. No rebound or peritonitis Back: No spinal tenderness. No costovertebral tenderness. Skin: Warm, dry with normal turgor. Normal color with no rashes, no lesions, and no evidence of cellulitis. MS/ Extremity: Pulses equal, no cyanosis. Neurovascular intact. Full, normal range of motion. Neuro: Awake and alert, GCS 15, oriented to person, place, time, and situation. Cranial nerves II-XII grossly intact. Motor strength 5/5 in all extremities. Sensory grossly intact. Psych: Awake, alert, with orientation to person, place and time. Behavior, mood, and affect are within normal limits 05:12 ECG was reviewed by the Attending Physician. EKG 0 315 normal sinus rhythm normal EKG. Vital Signs: 02:48 BP 114 / 75; Pulse 60; Resp 16 S; Temp 97.9(O); Pulse Ox 100% on R/A; jj7 12:55 Weight 90.72 kg; Height 5 ft. 9 in. ; ll1 12:55 Body Mass Index 29.53 (90.72 kg, 175.26 cm) ll1 [place] Coma Score: 03:15 Eye Response: spontaneous(4). Motor Response: obeys commands(6). Verbal Response: dd2 oriented(5). Total: 15. 05:12 Eye Response: spontaneous(4). Motor Response: obeys commands(6). Verbal Response: sp4 oriented(5). Total: 15. MDM: 03:02 Medical Screening Exam initiated sp4 04:43 ED course: EXAM: XR Chest 1 ViewAP HISTORY: heartburn COMPARISON: None TECHNIQUE: Chest sp4 1 ViewAP FINDINGS: Trachea midline. Heart size and pulmonary vessels within normal limits. Lungs clear without evidence of consolidation, mass, or significant pulmonary edema. No significant pleural effusion or pneumothorax. No free air in upper abdomen. Lower thoracic spine shows minimal leftward convex curvature. This may be positional or represent levoscoliosis. IMPRESSION: Unremarkable chest radiograph. . 05:10 Differential Diagnosis altered mental status, sepsis, flu, Custom - cholelithiasis, sp4 cholecystitis, pancreatitis. Data reviewed: vital signs, nurses notes, old medical records, lab test result(s), EKG, radiologic studies, CT scan, plain films, ultrasound. ED course: EXAM DESCRIPTION: Abdomen Exam Limited RadLex: US ABDOMEN LIMITED CLINICAL HISTORY: 34 years Female, ABD PAIN COMPARISON: None. FINDINGS: History Assistant Operations Manager color Doppler images were obtained to assess the gallbladder. Gallbladder is mildly distended and contains shadowing gallstones and layering sludge. Gallbladder wall is not thickened, measuring 0.2 cm. No pericholecystic fluid collections. Reportedly negative sonographic Correia sign. Common duct is not dilated, measuring 0.5 cm. Visualized portions of the liver demonstrate increased echogenicity, compatible with steatosis. IMPRESSION: 1. Cholelithiasis and gallbladder sludge without additional sonographic evidence of acute cholecystitis. 2. Hepatic steatosis. Electronically signed by: Mikki Kingston MD 10/11/2024 04:54 . 06:31 ED course: CLINICAL HISTORY: Chest pain. COMPARISON: US Abdomen 10/11/2024 and XR Chest sp4 10/11/2024. TECHNIQUE: CT CHESTABDOMEN PELVIS WITH IV CONTRAST on 10/11/2024 3:10 AM POLICE CAPTAIN. MIPS reconstructions were generated. This exam was performed according to our departmental dose-optimization program, which includes automated exposure control, adjustment of the mA and/or kV according to patient size and/or use of iterative reconstruction technique. FINDINGS: Vascular: Thoracic aorta is normal in course and caliber without aneurysm or dissection. Pulmonary arteries are adequately opacified without acute or chronic filling defects. Abdominal aorta is normal in course and caliber without aneurysm. Pelvic arteries are patent without aneurysm or occlusion. Chest: The heart is normal in size. There is no pericardial effusion. Intrathoracic lymph nodes are not enlarged. There is no pleural effusion, pleural thickening or pneumothorax. Central airways are patent. Lungs are clear with no consolidation, mass or interstitial lung disease. Abdomen: The liver is normal in appearance. There is no biliary dilatation. Gallbladder contains multiple small gallstones. The pancreas and spleen are normal in appearance. The adrenal glands and kidneys are unremarkable. There is no free air. There is no retroperitoneal adenopathy.There is a tiny fat-containing umbilical hernia. Pelvis: There is no bowel obstruction. Urinary bladder is unremarkable. There is no free fluid. Appendix is normal. Skeleton: There are no acute osseous findings. No suspicious bony lesions. IMPRESSION: No aortic dissection or aneurysm. No pulmonary embolus. No definite acute inflammatory process. Cholelithiasis. Electronically signed by: Pedro Linares MD 10/11/2024 . 07:05 Consideration of Admission/Observation Patient was admitted/placed on observation. sp4 Escalation of care including admission/observation considered. Management of patient was discussed with the following: Hospitalist: Jorge OCHOA . Marine Specialist: Mattie OCHOA . ED course: Patient discussed with Mattie Deleon who has agreed to accept consultation. Although there is no sign of acute cholecystitis but patient has moderate to severe abdominal pain with nausea vomiting. Very symptomatic. Patient will be admitted to the hospitalist for consultation for cholecystectomy . 10/11 03:02 Order name: Basic Metabolic Panel; Complete Time: 06:30 sp4 10/11 03:02 Order name: CBC with Diff; Complete Time: 06:30 sp4 10/11 03:02 Order name: LFT's; Complete Time: 06:30 sp4 10/11 03:02 Order name: Magnesium; Complete Time: 06:30 sp4 10/11 03:02 Order name: Troponin HS; Complete Time: 06:30 sp4 10/11 03:02 Order name: Test, Urine sp4 10/11 03:10 Order name: Lipase; Complete Time: 06:30 sp4 10/11 08:46 Order name: CBC with Automated Diff EDMS 10/11 08:46 Order name: CBC with Automated Diff EDMS 10/11 08:46 Order name: CBC with Automated Diff EDMS 10/11 08:46 Order name: CBC with Automated Diff EDMS 10/11 08:46 Order name: Comprehensive Metabolic Panel EDMS 10/11 08:46 Order name: Comprehensive Metabolic Panel EDMS 10/11 08:46 Order name: Comprehensive Metabolic Panel EDMS 10/11 08:46 Order name: Comprehensive Metabolic Panel EDMS 10/11 08:46 Order name: Magnesium EDMS 10/11 08:46 Order name: Magnesium EDMS 10/11 08:46 Order name: Magnesium EDMS 10/11 08:46 Order name: Magnesium EDMS 10/11 08:46 Order name: Phosphorus EDMS 10/11 08:46 Order name: Phosphorus EDMS 10/11 08:46 Order name: Phosphorus EDMS 10/11 08:46 Order name: Phosphorus EDMS 10/11 03:02 Order name: XRAY Chest (1 view) sp4 10/11 03:10 Order name: CT Chest, Abdomen, Pelvis - W/Contrast sp4 10/11 03:11 Order name: US Abdomen Limited sp4 10/11 03:02 Order name: EKG; Complete Time: 03:02 sp4 10/11 03:02 Order name: Cardiac monitoring; Complete Time: 03:18 sp4 10/11 03:02 Order name: EKG - Nurse/Tech; Complete Time: 03:18 sp4 10/11 03:02 Order name: IV Saline Lock; Complete Time: 03:18 sp4 10/11 03:02 Order name: Labs collected and sent; Complete Time: 03:18 sp4 10/11 03:02 Order name: O2 Per Protocol; Complete Time: 03:18 sp4 10/11 03:02 Order name: O2 Sat Monitoring; Complete Time: 03:18 sp4 EC:15 Rate is 66 beats/min. Rhythm is regular, Normal Sinus Rhythm. QRS [place] is Normal. CT sp4 interval is normal. QRS interval is normal. QT interval is normal. No Q waves. T waves are Normal. No ST changes noted. Clinical impression: Normal ECG. Interpreted by me. Reviewed by me. Administered Medications: 03:32 Drug: GI Cocktail without - (Maalox PO 30 ml, Lidocaine Mucous Membrane 2 % 15 dd2 ml) PO once Route: PO; 04:02 Follow up: Response: No adverse reaction dd2 03:32 Drug: Pantoprazole PO 40 mg PO once Route: PO; dd2 04:02 Follow up: Response: No adverse reaction dd2 03:32 Drug: Famotidine PO 40 mg PO once Route: PO; dd2 04:02 Follow up: Response: No adverse reaction dd2 03:32 Drug: morphine IVP or IV 4 mg IVP once over 4 mins Route: IVP; Infused Over: 4 mins; dd2 Site: left antecubital; 03:47 Follow up: Response: No adverse reaction dd2 03:32 Drug: Ketorolac IVP 30 mg IVP once Route: IVP; Site: left antecubital; dd2 03:47 Follow up: Response: No adverse reaction dd2 03:32 Drug: Ondansetron IVP 8 mg IVP once; over 2 minutes Route: IVP; Site: left antecubital; dd2 03:47 Follow up: Response: No adverse reaction dd2 06:03 Drug: morphine IVP or IV 4 mg IVP once over 4 mins Route: IVP; Infused Over: 4 mins; dd2 Site: left antecubital; 07:47 Follow up: Response: No adverse reaction ll1 06:03 Drug: metoCLOPramide IVP 10 mg IVP once; over 1 to 2 minutes Route: IVP; Site: left dd2 antecubital; 07:47 Follow up: Response: No adverse reaction ll1 Disposition Summary: 10/11/24 07:04 Hospitalization Ordered Notes: Hospitalization Status: Observation sp4 Condition: Stable sp4 Problem: new sp4 Symptoms: have improved sp4 Bed/Room Type: Standard sp4 Provider: Panchito Phelps(10/11/24 07:12) sp4 Location: [facility] ER HOLD(10/11/24 09:29) kb3 Room Assignment: ERHOLD-(10/11/24 09:29) kb3 Diagnosis - Upper abdominal pain, unspecified sp4 - Other cholelithiasis without obstruction sp4 - Biliary colic, intractable abdominal pain, intractable vomiting sp4 Forms: - Medication Reconciliation Form sp4 - SBAR form sp4 - Leadership Thank You Letter sp4 Signatures: Dispatcher [employer] Michelle Phipps RN RN lg3 Ammy Morgan RN RN kb3 Carlos Spears MD MD sp4 MARIELENA EMMANUEL RN RN dd2 Franck Ga RN ll1 Corrections: (The following items were deleted from the chart) 03:02 03:02 Test, Urine+UC.LAB.BRZ ordered. EDMS EDMS 07:11 07:04 Rhys Patel sp4 sp4 07:12 07:11 Panchito Phelps sp4 sp4 09:29 07:04 Telemetry/MedSurg (observation) sp4 kb3 09:29 07:04 sp4 kb3
--- NOTE | 2024-10-11 07:04 | ER ---
Nurse's Notes [facility] Name: Jumana Arzate Age: 34 yrs Sex: Female : 1990 Arrival Date: 10/11/2024 Time: 02:45 Bed 6 Private MD: Diagnosis: Upper abdominal pain, unspecified;Other cholelithiasis without obstruction;Biliary colic, intractable abdominal pain, intractable vomiting Presentation: 10/11 02:52 Chief complaint: Patient states: epigastric pain since 11 am worsening throughout the lg3 day. took Tums and Jyoti-Milmay with no relief. pain radiating to chest, back and abdomen since 2300. Coronavirus screen: Client denies travel out of the [place] in the last 14 days. At this time, the client does not indicate any symptoms associated with coronavirus-19. Ebola Screen: No symptoms or risks identified at this time. Initial Sepsis Screen: Does the patient meet any 2 criteria? No. Patient's initial sepsis screen is negative. Does the patient have a suspected source of infection? No. Patient's initial sepsis screen is negative. Risk Assessment: Do you want to hurt yourself or someone else? Patient reports no desire to harm self or others. Onset of symptoms was October 10, 2024. 02:52 Method Of Arrival: EMS: [facility] lg3 02:52 Acuity: ELSI 4 lg3 Triage Assessment: 02:53 General: Appears in no apparent distress. comfortable, Behavior is calm, cooperative. lg3 Pain: Complains of pain in epigastric area Pain radiates to chest, back, abdomen. EENT: No deficits noted. No signs and/or symptoms were reported regarding the EENT system. Neuro: No deficits noted. Anguiano Agitation-Sedation Scale (RASS): 0 - Alert and Calm Level of Consciousness is awake, alert, obeys commands, Oriented to person, place, time, situation. Cardiovascular: Reports chest pain, Capillary refill < 3 seconds Clubbing of nail beds is absent JVD is absent Patient's skin is warm and dry. Respiratory: No deficits noted. Airway is patent Respiratory effort is even, unlabored, Respiratory pattern is regular, symmetrical. GI: Abdomen is round non-distended, Reports upper abdominal pain, epigastric pain, indigestion, nausea. : No signs and/or symptoms were reported regarding the genitourinary system. Derm: No deficits noted. No signs and/or symptoms reported regarding the dermatologic system. Skin is intact, is healthy with good turgor, Skin is dry, Skin is normal, Skin temperature is warm. Musculoskeletal: No deficits noted. No signs and/or symptoms reported regarding the musculoskeletal system. Circulation, motion, and sensation intact. Range of motion: intact in all extremities. GAMING PIT BOSS: 02:53 LMP 09/2024, unknown lg3 Historical: - Allergies: 02:53 No Known Allergies; lg3 - Home Meds: 02:53 None [Active]; lg3 - PMHx: 02:53 None; lg3 - PSHx: 02:53 None; lg3 - Immunization history:: Adult Immunizations up to date. - Infectious Disease History:: Denies. - Social history:: Smoking status: Patient reports the use of cigarette tobacco products, smokes one-half pack cigarettes per day, Patient uses alcohol, occasionally. Patient/guardian denies using street drugs. - Family history:: not pertinent. Screenin:15 [facility] ED Fall Risk Assessment (Adult) History of falling in the last 3 months, dd2 including since admission No falls in past 3 months (0 pts) Confusion or Disorientation No (0 pts) Intoxicated or Sedated No (0 pts) Impaired Gait No (0 pts) Mobility Assist Device Used No (0 pt) Altered Elimination No (0 pt) Score/Fall Risk Level 0 - 2 = Low Risk Oriented to surroundings, Maintained a safe environment, Educated pt \T\ family on fall prevention, incl call for assistance when getting out of bed, Assessed \T\ reinforced patient's understanding of fall precautions, Hourly rounding (assess needs \T\ fall precautionary measures) done. Abuse screen: Denies threats or abuse. Denies injuries from another. Nutritional screening: No deficits noted. Tuberculosis screening: No symptoms or risk factors identified. Assessment: 03:15 General: Appears in no apparent distress. uncomfortable, Behavior is calm, cooperative, dd2 appropriate for age. Pain: Complains of pain in epigastric area Pain does not radiate. Pain currently is 10 out of 10 on a pain scale. Quality of pain is described as burning, crampy. Neuro: No deficits noted. Anguiano Agitation-Sedation Scale (RASS): 0 - Alert and Calm Level of Consciousness is awake, alert, obeys commands, Oriented to person, place, time, situation, Appropriate for age. Cardiovascular: No deficits noted. Patient's skin is warm and dry. Respiratory: Airway is patent Respiratory effort is even, unlabored, Respiratory pattern is regular, symmetrical. GI: Abdomen is non-distended, Abd is soft X 4 quads Abdomen is tender to palpation in epigastric area Reports epigastric pain, nausea. : No deficits noted. No signs and/or symptoms were reported regarding the genitourinary system. EENT: No deficits noted. No signs and/or symptoms were reported regarding the EENT system. Derm: No deficits noted. No signs and/or symptoms reported regarding the dermatologic system. Musculoskeletal: No deficits noted. No signs and/or symptoms reported regarding the musculoskeletal system. Vital Signs: 02:48 BP 114 / 75; Pulse 60; Resp 16 S; Temp 97.9(O); Pulse Ox 100% on R/A; jj7 12:55 Weight 90.72 kg; Height 5 ft. 9 in. ; ll1 12:55 Body Mass Index 29.53 (90.72 kg, 175.26 cm) ll1 Sylvain Coma Score: 03:15 Eye Response: spontaneous(4). Motor Response: obeys commands(6). Verbal Response: dd2 oriented(5). Total: 15. 05:12 Eye Response: spontaneous(4). Motor Response: obeys commands(6). Verbal Response: sp4 oriented(5). Total: 15. ED Course: 02:47 Patient arrived in ED. jj6 02:53 Triage completed. lg3 02:53 Arm band placed on right wrist. lg3 03:00 Carlos Spears MD is Attending Physician. sp4 03:15 Patient has correct armband on for positive identification. Bed in low position. Call dd2 light in reach. Side rails up X2. Client placed on continuous cardiac and pulse oximetry monitoring. NIBP monitoring applied. wax pourer on. Door closed. Noise minimized. Warm blanket given. Pillow given. Verbal reassurance given. 03:15 No provider procedures requiring assistance completed. Patient maintains SpO2 dd2 saturation greater than 95% on room air. 03:16 MARIELENA EMMANUEL, FEI is Primary Nurse. dd2 03:18 EKG done, by video technician. af3 03:18 Inserted saline lock: 20 gauge in left antecubital area, using aseptic technique. Blood af3 collected. Flushed with 10 mL NS. 03:28 XRAY Chest (1 view) In Process Unspecified. EDMS 03:47 US Abdomen Limited In Process Unspecified. EDMS 05:23 CT Chest, Abdomen, Pelvis - W/Contrast In Process Unspecified. EDMS 07:03 Rhys Patel MD is Hospitalizing Provider. sp4 07:11 Hospitalizing Provider role handed off by Rhys Patel MD sp4 07:11 Panchito Phelps MD is Hospitalizing Provider. sp4 07:11 Primary Nurse role handed off by MARIELENA EMMANUEL, FEI ll1 07:11 Franck Ga, FEI is Primary Nurse. ll1 12:48 Provided Education on: ER procedures and process. ll1 12:48 Patient admitted, IV remains in place. ll1 Administered Medications: 03:32 Drug: GI Cocktail without - (Maalox PO 30 ml, Lidocaine Mucous Membrane 2 % 15 dd2 ml) PO once Route: PO; 04:02 Follow up: Response: No adverse reaction dd2 03:32 Drug: Pantoprazole PO 40 mg PO once Route: PO; dd2 04:02 Follow up: Response: No adverse reaction dd2 03:32 Drug: Famotidine PO 40 mg PO once Route: PO; dd2 04:02 Follow up: Response: No adverse reaction dd2 03:32 Drug: morphine IVP or IV 4 mg IVP once over 4 mins Route: IVP; Infused Over: 4 mins; dd2 Site: left antecubital; 03:47 Follow up: Response: No adverse reaction dd2 03:32 Drug: Ketorolac IVP 30 mg IVP once Route: IVP; Site: left antecubital; dd2 03:47 Follow up: Response: No adverse reaction dd2 03:32 Drug: Ondansetron IVP 8 mg IVP once; over 2 minutes Route: IVP; Site: left antecubital; dd2 03:47 Follow up: Response: No adverse reaction dd2 06:03 Drug: morphine IVP or IV 4 mg IVP once over 4 mins Route: IVP; Infused Over: 4 mins; dd2 Site: left antecubital; 07:47 Follow up: Response: No adverse reaction ll1 06:03 Drug: metoCLOPramide IVP 10 mg IVP once; over 1 to 2 minutes Route: IVP; Site: left dd2 antecubital; 07:47 Follow up: Response: No adverse reaction ll1 Medication: 03:15 VIS not applicable for this client. dd2 Outcome: 07:04 Decision to Hospitalize by Provider. sp4 07:15 Admitted to ER Hold. Please see [facility] for further documentation. 1 07:15 Condition: stable 07:15 Instructed on the need for admit, 12:55 Patient left the ED. ll1 Signatures: Dispatcher [employer] EDMS Michelle Bartlett RN RN lg3 Franck Ga RN RN ll1 Elizabet Wise jj6 Rashid Rogel RN RN jj7 Carlos Spears MD MD sp4 Emily Ovalles DIANA, RN RN dd2
[2024-10-11] MEDS: MORPHINE 2 MG/ML SYR IV PRN (08:15)
[2024-10-11] MEDS ORDERED: ONDANSETRON 4 MG/2 ML VIAL IV PRN (08:42)
[2024-10-11] MEDS: D5.45NS W/KCL 20MEQ 1,000 ML IV SCH (09:00)
[2024-10-11] MEDS: PIPER TAZO 3.375 GM in NA CHLORIDE 0.9% 100 ML IV SCH (09:00)
[2024-10-11] MEDS ORDERED: D5.45NS W/KCL 20MEQ 1,000 ML IV ONE (10:14)
[2024-10-11] MEDS ORDERED: PIPERACIL/TAZO 3.375 GM VIAL IV ONE (10:14)
[2024-10-11] MEDS ORDERED: NA CHLORIDE 0.9% 100 ML ONE (10:14)
[2024-10-11 12:55] VITALS: BMI 29.5
[2024-10-11] MEDS: Ringers Lactate 1,000 ML IV ONE (13:05)
[2024-10-11] MEDS ORDERED: dexAMETHasone 10 MG/ML VIAL ONE (14:12)
[2024-10-11] MEDS ORDERED: propofoL 200 MG/20 ML VIAL IV ONE (14:12)
[2024-10-11] MEDS ORDERED: LIDOCAINE 2% MPF 5 ML VIAL ONE (14:12)
[2024-10-11] MEDS ORDERED: ROCURONIUM 50 MG/5 ML VIAL IV ONE ×2 (14:12→15:23)
[2024-10-11] MEDS ORDERED: FENTANYL CITR 100 MCG/2 ML ONE (14:12)
[2024-10-11] MEDS ORDERED: MIDAZOLAM HCL 2 MG/2 ML INJ ONE (14:12)
[2024-10-11] MEDS: LIDOCAINE HCL/EPINEPHRINE 20 ML MDV ONE (14:49)
--- NOTE | 2024-10-11 15:38 | P.OP ---
Preoperative diagnosis: Cholecystitis / Biliary Colic Postoperative diagnosis: Acute Cholecystitis Primary procedure: Laparoscopic Cholecystectomy with ICG Cholangiography Anesthesia: GETA + Local Estimated blood loss: <10cc Specimen: Gallbladder Findings: Bile Staining in abdomen, distended GB Complications: None Transferred to: Recovery Room Condition: Good
[2024-10-11 16:31] VITALS: O2SAT 98
--- NOTE | 2024-10-11 20:27 | HP ---
Date of Admission: 10/11/2024 Brief History Of Present Illness: The patient is a 34-year-old white woman who presents with epigast peg abdominal pain to the ER. She has no significant past medical history. The pain was in the epig astric area with radiation to the right upper quadrant and some radiation through the back. She geri tionally had a few cramps in the lower abdomen as well, but the pain has been predominantly located i n the right upper quadrant and it was sharp, stabbing, associated with heartburn, some nausea. She t ried taking Tums [id number], which did not help the symptoms at all. The pain is now localized specifically to the right upper quadrant with some radiation through the back. It is less intense n ow with pain medication and feels more like a soreness. She has not had similar episodes before in t he past. No sick contacts. No recent travel. No new food exposures. Past Medical History: Negative. Past Surgical History: Negative. Allergies: NO KNOWN DRUG ALLERGIES. Home Medications: None. Social History: She denies smoking, alcohol, or recreational drug use. Review of Systems: Ten-point review of systems other than HPI, denies. Physical Examination: General: She is awake, alert, and oriented. Psychiatric: She is appropriate. Conversive. HEENT: Normocephalic. Sclerae anicteric. Mucous membranes are moist. Oropharynx is clear. Neck: Supple. No JVD. Chest: Normal to expansion and excursion. Cardiovascular: Regular rate and rhythm. Pulmonary: Clear to auscultation bilaterally. Abdomen: Soft. Positive right upper quadrant tenderness to palpation. Positive Correia sign. Posit benigno mild voluntary guarding. Extremities: No clubbing, cyanosis, or edema. Skin: Warm and dry. Laboratory Data: Revealed a white blood cell count of 10.8, hemoglobin 13.0, hematocrit 38.3, platel et count was 276. Sodium 137, potassium 3.6, chloride 107, carbon dioxide 24, BUN 16, creatinine 0.8 , glucose 135. Her total bilirubin 0.3, AST 16, ALT 26, alkaline phosphatase 115, lipase is 35. She had imaging performed as well, which included an ultrasound of the abdomen, which showed cholelithia sis and gallbladder sludge without additional findings of acute cholecystitis and hepatic steatosis i s evident. She had a CT of the chest, abdomen, and pelvis, which officially read as no acute aortic dissection or aneurysm, no pulmonary embolus, no definitive inflammatory process. The gallbladder co ntains multiple small gallstones. Assessment And Plan: This is a 34-year-old woman who comes in with signs and symptoms of acute episo de of biliary colic. 1. IV fluid hydration. 2. Antibiotic coverage. 3. I have explained the risks, benefits, and alternatives of laparoscopic possible open cholecystecto my with cholangiography including but not limited to bleeding, infection, damage to surrounding tissu es, injury to bile ducts, intestines, other unforeseen complications including but not limited to hea rt attack, blood clots, strokes, need for major or reconstructive surgery and other unforeseen compli cations in the perioperative period. The patient displayed understanding of the above-stated plan, a greed to proceed as indicated, and all questions were answered. BALBINA/STONE Voice ID: [id number]
[2024-10-11] MEDS: HYDROCODONE/APAP 5/325 MG TAB PO PRN (20:54)
--- NOTE | 2024-10-12 01:03 | OP ---
Date of Procedure: 10/11/2024 Surgeon: Po Phelps MD, Preoperative Diagnosis: Cholecystitis/biliary colic. Postoperative Diagnosis: Acute cholecystitis. Procedure Performed: Laparoscopic cholecystectomy with indocyanine green cholangiography. Anesthesia: General endotracheal plus local with 1% lidocaine with epinephrine. Estimated Blood Loss: Less than 10 cc. Specimen: Gallbladder. Findings: Bile staining abdomen, distended gallbladder. Complications: None. Disposition: Patient transferred to recovery room in good condition. Procedure In Detail: After informed consent was obtained, the patient was brought to the operating r oom, and prepped and draped in the usual sterile fashion. After adequate anesthesia was achieved, I anesthetized the area of the supraumbilical position down to subcutaneous tissues. 5 mm 0 degree opt ical trocar was introduced into the abdomen without incident or complication. Insufflation was obtai baljit to 15 mmHg, at this time. There was no injury to vital structures upon entry into the abdomen. Two additional trocars were placed, one in the epigastrium, one in the right upper quadrant, both the se similarly anesthetized and sharply incised. 5 mm trocar was placed under direct visualization wit hout incident or complication. At this time, I upsized the umbilical trocar to a 12 mm under direct visualization without incident or complication. Patient positioned head up right-side up position. Ratcheted grasper was used to grasp the patient's gallbladder, placed it towards the patient's right shoulder. Dissection continued down to the Ant pouch of the gallbladder. Ultimately dissecting out 2 structures, identified both cystic duct and cystic artery. At this point, the critical view o f safety was obtained. I then skeletonized these structures. I then obtained ICG cholangiography vi sualization of the cystic common duct confluence far away from the proposed transection site. At thi s point, I used Endo Maude to ligate these structures. I then removed the gallbladder from the hepa tic fossa without incident or complication. Manipulation of gallbladder did require decompression ne edle early on the procedure to allow for proper manipulation of the gallbladder. There was minimal s pillage of bile throughout the procedure, however, there was bile staining on the abdomen prior to an y decompression or any manipulation of the gallbladder. All this effluent was suctioned out. The ga llbladder was placed in EndoCatch bag, removed through the umbilical trocar site, sent off for pathol ogic examination. The area was copiously irrigated multiple times until completely clear. Minimal h emostatic required on the midportion to the lateral aspect of the gallbladder fossa with minimal elec trocautery achieving good hemostasis. At this point, the area was copiously irrigated multiple times . Under de-sufflation, it was inspected. No additional hemostatic measures required. I then inspec po the clips, found to be in good anatomic position. ICG cholangiography showed no leakage of bile throughout the procedure. I then suctioned out the remaining effluent after the patient was position ed back in neutral position. I then closed the 12 mm trocar site using a Feliciano-Scott suture pass er with 0 Vicryl in interrupted fashion with good approximation of the tissues. The abdomen was desu fflated under direct vision without incident or complication. The remaining trocars were removed. A ll skin edges were then copiously irrigated and closed with a 4-0 Monocryl in a running fashion. Gordon mabond was placed over top. The patient tolerated the procedure without incident or complication, tr ansferred to PACU in good condition. All counts were correct at the end of the case. BALBINA/STONE Voice ID: [id number] Report ID: [id number]
[2024-10-12 05:19] LABS: Absolute Lymphocytes (CBC) 1.3 K/uL (0.7-4.9); Absolute Monocytes 0.4 K/uL (0.1-1.3); Absolute Neutrophil 9.2 K/uL (1.8-8.0); Basophils % 0.3 % (0-1.3); Hematocrit 35.3 % (36.0-45.0); Hemoglobin 12.1 g/dL (12.0-15.0); Lymphocytes % 11.8 % (15.3-44.8); MCH 31.5 pg (27.0-35.0); MCHC 34.3 g/dL (32.0-36.0); MCV 91.8 fL (80-100); MPV 8.5 fL (7.6-11.3); Monocytes % 3.9 % (3.3-12.3); Platelets 258 thou/uL (152-406); RBC Red Blood Cell Count 3.85 M/uL (3.86-4.86)
[2024-10-12 05:35] LABS: Albumin 3.2 g/dL (3.4-5.0); Anion Gap 8.2 mEq/L (5.0-15.0); Bilirubin Total 0.5 mg/dL (0.2-1.0); Globulin 3.3 g/dL (2.3-3.5); Magnesium 1.9 mg/dL (1.6-2.4); Phosphorus 2.9 mg/dL (2.5-4.9); Potassium 4.2 mEq/L (3.5-5.1); Protein, Total 6.5 g/dL (6.4-8.2)
[2024-10-12 08:34] VITALS: BP 105/59; TEMP 98
--- NOTE | 2024-10-14 12:14 | EKG ---
Test Date: 2024-10-11 Test Time: 03:15:10 Manufacturing Engineer Supervisor: AF MEASUREMENT RESULTS: Intervals: Rate: 66 MS: 160 QRSD: 90 QT: 450 QTc: 471 [place]: P: 72 MS: 160 QRS: 49 T: 50 INTERPRETIVE STATEMENTS: Normal sinus rhythm Normal ECG No previous ECG available for comparison Electronically Signed On 10-14-24 12:08:30 COMPUTER APPLICATIONS INSTRUCTOR by Clint Santos
== END 2024-10-12 11:30 | disposition home or self-care (01) ==
LOC: ER 02:45 → ERHOLD 08:42 → 2ND 16:12
PROVIDERS: ADMIT Surgery; ATTEND Surgery
PROC: BF50200 Other Imaging of Bile Ducts using Fluorescing Agent, Indocyanine Green Dye, Intraoperative (ICD-10-PCS; 2024-10-11)
PROC: 0FT44ZZ Resection of Gallbladder, Percutaneous Endoscopic Approach (ICD-10-PCS; principal; 2024-10-11 14:30)
DX: K80.12 Calculus of gallbladder with acute and chronic cholecystitis without obstruction (principal); F17.210 Nicotine dependence, cigarettes, uncomplicated; R11.10 Vomiting, unspecified; R10.10 Upper abdominal pain, unspecified
CPT/HCPCS: 93005; 85025 ×2; 80048; 36415 ×2; 83735 ×2; 84100; 82947 ×3; 80076; 88304; 84484; 83690; 80053; 71260; 74177; 71045; 76705; 94010; 96375; 96374; 99285; 47563; Q9967; J2704; J2765; J2543 ×4; J2003; J2250; J3010; J1100; J2270 ×3; J2405 ×2; G0378 ×5; J7120